=== PATIENT | male | born 1965 | race Two or more races ===

== ENCOUNTER 2019-01-02 10:10 | Inpatient (IN) | payer OTHER ==
[~2019-01-02] VITALS: Ht 175.3 cm; Wt 63.8 kg
[2019-01-02 11:37] LABS: Basophils # (auto) 0.1 uL; Eosinophils # (auto) 0.3 uL; Eosinophils % (auto) 3.6 % (0.0-7.0); Hematocrit 47.5 % (41.0-53.0); Hemoglobin 15.5 g/dL (13.5-17.5); Lymphocytes # (auto) 1.6 uL; Lymphocytes % (auto) 22.6 % (10.0-50.0); Mean Corpuscular Hemoglobin 30.9 pg (28.0-32.0); Mean Corpuscular Hgb Conc. 32.5 g/dL (32.0-36.0); Mean Corpuscular Volume 94.9 fL (80.0-100.0); Monocytes # (auto) 0.9 uL; Monocytes % (auto) 12.8 % (0.0-12.0); Neutrophils # (auto) 4.2 uL; Nucleated Red Blood Cells % 0.1 %; Platelet Count (auto) 221 10^3/uL (140-450); Red Blood Cells 5.01 10^6/uL (4.5-5.90); Red Cell Distribution Width 14.4 % (11.8-14.3)
[2019-01-02 11:55] LABS: Albumin 3.6 g/dL (3.4-5.0); Calcium 8.5 mg/dL (8.5-10.1); Magnesium 2.6 mg/dL (1.6-2.6); Potassium 5.1 mmol/L (3.5-5.1)
[2019-01-02 12:01] LABS: Bilirubin, Total 0.4 mg/dL (0.2-1.0); Total Protein 7.1 g/dL (6.4-8.2)
[2019-01-02] MEDS ORDERED: NICOTINE 21MG/24 HR TOPICAL PATCH TD ONE (14:15)
[2019-01-02] MEDS ORDERED: NITROGLYCERIN 0.4 MG SL TAB SL PRN (14:15)
[2019-01-02] MEDS ORDERED: MORPHINE SULFATE 4 MG/ML SYR/VIAL IV PRN (14:15)
[2019-01-02] MEDS ORDERED: ACETAMINOPHEN 500 MG TAB PO PRN (14:15)
[2019-01-02 14:34] LABS: Urine Bacteria NONE SEEN /hpf (None Seen); Urine Blood Negative /uL (Negative); Urine Mucus FEW (None Seen); Urine Specific Gravity 1.014 (1.001-1.035); Urine WBC 5 /hpf (0 - 3)
[2019-01-02 14:54] LABS: Alcohol, Urine < 3.0 mg/dL (0-5); Amphetamine Screen, Urine POSITIVE (NEGATIVE); Barbiturate Scree,Urine NEGATIVE (NEGATIVE); Benzodiazephine Screen, Urine NEGATIVE (NEGATIVE); Cannabinoid Screen, Urine POSITIVE (NEGATIVE); Cocaine Screen, Urine NEGATIVE (NEGATIVE); Opiate Scree,Urine NEGATIVE (NEGATIVE); Phencyclidine Screen, Urine NEGATIVE (NEGATIVE)
[2019-01-02 15:03] LABS: Cholesterol 171 mg/dL (< 200); HDL Cholesterol 63 mg/dL (40-59); LDL Cholesterol 98 mg/dL (< 100); Triglycerides 128 mg/dL (< 150)
[2019-01-02] MEDS: MORPHINE SULF INJ 2 MG/ML SYRINGE 1ML IV PRN (15:54)
[2019-01-02] MEDS: ONDANSETRON HCL 4 MG/2 ML VIAL IV PRN (15:55)
[2019-01-02 17:24] VITALS: BP 125/84
[2019-01-02 17:56] VITALS: BP 125/84
--- NOTE | 2019-01-02 19:30 | NUR ---
Opening Shift Note Assumed care of patient, awake and alert. No S/S of distress/SOB or pain. Instructed on POC and to call for assist PRN, will continue to monitor for changes Q1hr and PRN. Bed in low position, call orellana with in reach.
[2019-01-02] MEDS: METOPROLOL TARTRATE 25 MG TAB PO SCH (21:28)
[2019-01-02 22:00] VITALS: BP 119/77
[2019-01-02] MEDS: ALPRAZolam 0.25 MG TAB PO PRN (22:06)
[2019-01-02] MEDS: HYDROcodone-ACET 5/325MG TAB PO PRN (22:07)
[2019-01-03] MEDS: MORPHINE SULF INJ 2 MG/ML SYRINGE 1ML IV PRN ×2 (02:04→19:08)
[2019-01-03 06:00] VITALS: BP 101/59
[2019-01-03] MEDS: ALPRAZolam 0.25 MG TAB PO PRN ×2 (07:59→16:52)
[2019-01-03] MEDS: PANTOPRAZOLE 40 MG TAB PO SCH (07:59)
[2019-01-03] MEDS: LISINOPRIL 5 MG TAB PO SCH (07:59)
[2019-01-03] MEDS: NICOTINE 21MG/24 HR TOPICAL PATCH TD SCH (08:01)
[2019-01-03] MEDS: METOPROLOL TARTRATE 25 MG TAB PO SCH ×2 (08:01→22:34)
[2019-01-03 09:00] VITALS: BP 110/67
[2019-01-03 11:09] LABS: INR 0.98 (0.9-1.15); Prothrombin Time 10.5 sec (9.27-12.13)
[2019-01-03 13:00] VITALS: BP 92/61
[2019-01-03] MEDS ORDERED: FUROSEMIDE 40 MG TAB PO ONE (13:45)
[2019-01-03 16:07] LABS: Calcium 8.3 mg/dL (8.5-10.1); Potassium 4.8 mmol/L (3.5-5.1)
[2019-01-03 16:09] LABS: BUN/Creatinine Ratio 19.3
[2019-01-03 17:00] VITALS: BP 105/69
--- NOTE | 2019-01-03 19:36 | NUR ---
Opening Shift Note Assumed care of patient, awake and alert. No S/S of distress/SOB or pain. Instructed on POC and to call for assist PRN, will continue to monitor for changes Q1hr and PRN. Patient emotional on current condition, support given.
--- NOTE | 2019-01-03 20:48 | NUR ---
1950 Patient c/o chest pain 04/19, described by patient as tight and radiating to left arm. B/P 104/71, HR 87, 98% on 02 2L via n/c. EKG DONE 2018 Nitroglycerin 0.4 tab given SL, pain now 12/20. B/P 111/60, HR 82 Patient also reports " it could be anxiety". Morphine 2mg IV given for chest pain. Herminio Hospitalist. Addendum: 01/04/19 at 0150 by RUSS CRUZ RN Hospitalist called back, notified of chest pain issue and treatment done. No new orders at this time.
[2019-01-03 22:00] VITALS: BP 143/87
[2019-01-04 04:57] VITALS: BP 103/49
[2019-01-04 05:22] LABS: BUN/Creatinine Ratio 22.6; Calcium 8.6 mg/dL (8.5-10.1); Potassium 4.1 mmol/L (3.5-5.1)
--- NOTE | 2019-01-04 07:30 | NUR ---
OPENING NOTE ASSUMED CARE OF PATIENT. PT IS LAYING ON BED, AWAKE, HOB LOW-FOWLERS. A&O x4. ON ROOM AIR, O2 SATURATION 98%. NO SIGNS OF SOB/DISTRESS NOTED. SAFETY PRECAUTIONS IN PLACE INCLUDING, BED SET TO LOWEST POSITION/LOCKED. BEDSIDE RAILS UP X2. CALL LIGHT WITHIN REACH. INSTRUCTED PT TO CALL FOR ASSISTANCE. DISCUSSED POC WITH PT. PT VERBALIZED UNDERSTANDING. WILL CONTINUE TO MONITOR Q 1HR AND PRN.
[2019-01-04 08:56] VITALS: BP 112/65
[2019-01-04] MEDS: FUROSEMIDE 40 MG TAB PO SCH (11:25)
[2019-01-04] MEDS: NICOTINE 21MG/24 HR TOPICAL PATCH TD SCH (11:26)
[2019-01-04] MEDS: LISINOPRIL 5 MG TAB PO SCH (11:26)
[2019-01-04] MEDS: PANTOPRAZOLE 40 MG TAB PO SCH (11:26)
[2019-01-04] MEDS: METOPROLOL TARTRATE 25 MG TAB PO SCH ×2 (11:27→21:20)
[2019-01-04] MEDS ORDERED: FURO40TA4 PO (12:42)
[2019-01-04] MEDS ORDERED: ENA2.5T PO (12:42)
[2019-01-04] MEDS ORDERED: SPIR25TA8 PO (12:42)
[2019-01-04] MEDS ORDERED: MET25T PO (12:42)
[2019-01-04 12:54] VITALS: BP 103/67
[2019-01-04] MEDS ORDERED: SPIRONOLACTONE 25 MG TAB PO ONE (13:00)
[2019-01-04 13:53] VITALS: BP 112/65
--- NOTE | 2019-01-04 14:20 | NUR ---
PATIENT DISCHARGE WAS CANCELLED PER DR. MURPHY, PATIENT WILL HAVE PROCEDURE TOMORROW 01/05/19. PATIENT IS AWARE.
[2019-01-04 16:40] VITALS: BP 108/61
[2019-01-04] MEDS: SPIRONOLACTONE 25 MG TAB PO SCH (19:20)
--- NOTE | 2019-01-04 19:21 | NUR ---
ENDORSED CARE TO GARY SOLANO.
[2019-01-04] MEDS: ENALAPRIL MALEATE 2.5 MG TAB PO SCH (21:22)
[2019-01-04 22:14] VITALS: BP 106/73
[2019-01-05 04:46] VITALS: BP 97/60
[2019-01-05] MEDS: SPIRONOLACTONE 25 MG TAB PO SCH (05:29)
--- NOTE | 2019-01-05 07:02 | NUR ---
Patient to pre-op via bed, endorsed to María VEGA. Patient A&OX4, awake and alert.
[2019-01-05] MEDS ORDERED: LIDOCAINE 1% HCL (LOCAL ANESTH.) INJ 20ML MDV ONE (07:04)
[2019-01-05] MEDS ORDERED: BUPIVACAINE W/ EPINEPH 0.25% INJ 50ML MDV ONE (07:04)
[2019-01-05] MEDS ORDERED: ceFAZolin 1GM/50ML 50 ML IV ONE (07:09)
[2019-01-05] MEDS: LIDOCAINE W/ EPINEPHRINE 1 % INJ 30ML ONE ×2 (07:14→07:50)
[2019-01-05] MEDS: BUPIVACAINE 0.25% INJ 50ML VIAL ONE ×2 (07:15→07:50)
--- NOTE | 2019-01-05 07:20 | NUR ---
OPENING NOTE ASSUMED CARE OF PATIENT. PATIENT OFF UNIT. PATIENT IN PRE-OP.
[2019-01-05] MEDS ORDERED: fentaNYL CITRATE 100 MCG/2 ML VL ONE ×2 (07:24→07:59)
[2019-01-05] MEDS ORDERED: PROPOFOL 10 MG/ML 20 ML IV ONE (07:24)
[2019-01-05] MEDS ORDERED: MIDAZOLAM HCL 1MG/1ML-2 ML VIAL ONE (07:24)
[2019-01-05] MEDS ORDERED: MORPHINE SULFATE 4 MG/ML SYR/VIAL IV PRN ×2 (09:00→12:45)
[2019-01-05] MEDS ORDERED: ePHEDrine SULFATE 50 MG/ML AMP IV PRN (09:00)
[2019-01-05] MEDS ORDERED: ONDANSETRON HCL 4 MG/2 ML VIAL IV ONE (09:00)
[2019-01-05] MEDS ORDERED: hydrALAZINE HCL 20 MG/ML VL IV PRN (09:00)
--- NOTE | 2019-01-05 09:31 | NUR ---
PATIENT BACK ON UNIT VIA BED FROM OR. A&O X4. PATIENT IS STABLE, VS BP 104/68, HR 72, RR 18, O2 SATURATIONS 95%. SAFETY PRECAUTIONS IN PLACE INCLUDING BED SET TO LOWEST POSITION/LOCKED. BEDSIDE RAILS UP X2. CALL LIGHT WITHIN REACH. INSTRUCTED PATIENT TO CALL FOR ASSISTANCE. PATIENT VERBALIZED UNDERSTANDING. WILL CONTINUE TO MONITOR Q 1HR AND PRN.
--- NOTE | 2019-01-05 09:51 | NUR ---
0800 INTERVENTIONS WERE COMPLETED AT 0935 WHEN PATIENT GOT BACK ON UNIT FROM OR.
[2019-01-05] MEDS: ENALAPRIL MALEATE 2.5 MG TAB PO SCH (10:00)
[2019-01-05] MEDS: FUROSEMIDE 40 MG TAB PO SCH (10:44)
[2019-01-05] MEDS: PANTOPRAZOLE 40 MG TAB PO SCH (10:44)
[2019-01-05] MEDS: METOPROLOL TARTRATE 25 MG TAB PO SCH (10:44)
[2019-01-05] MEDS: NICOTINE 21MG/24 HR TOPICAL PATCH TD SCH (10:45)
[2019-01-05] MEDS: MORPHINE SULF INJ 2 MG/ML SYRINGE 1ML IV PRN (10:48)
[2019-01-05] MEDS: HYDROcodone-ACET 5/325MG TAB PO PRN (11:50)
[2019-01-05] MEDS ORDERED: MORPHINE SULF INJ 2 MG/ML SYRINGE 1ML IV PRN (12:45)
[2019-01-05] MEDS ORDERED: HYDROcodone-ACET 5/325MG TAB PO PRN (12:45)
[2019-01-05] MEDS: ONDANSETRON HCL 4 MG/2 ML VIAL IV PRN (12:47)
[2019-01-05 13:00] VITALS: BP 120/71
--- NOTE | 2019-01-05 13:19 | NUR ---
assessment Per consult no pcp. Adrienne Dhaliwal to see patient for PCP. Addendum: 01/07/19 at 1720 by Adrienne Mathew Amended: Links added.
--- NOTE | 2019-01-05 16:16 | NUR ---
Discharge instructions given as ordered. Encourage to follow up with PMD as instructed. All questions and concerns addressed. Patient verbalized understanding. No home medications held in Pharmacy and no vaccines given. IV removed with catheter intact, pressure dressing applied.
--- NOTE | 2019-01-05 16:31 | NUR ---
Patient taken to vehicle via wheelchair with all personal belongings, accompanied by staff and family member. No distress noted at time of departure.
== END 2019-01-05 16:31 | disposition home or self-care (01) | DRG 228 ==
LOC: ER 10:10 → OVERFLOW 14:14 → WEST WING 17:01
PROVIDERS: ADMIT Nurse Practitioner Acute Care; ATTEND Internal Medicine
PROC: 0YQ50ZZ Repair Right Inguinal Region, Open Approach (ICD-10-PCS; principal; 2019-01-05 07:25)
DX: K40.30 Unilateral inguinal hernia, with obstruction, without gangrene, not specified as recurrent (principal); I42.0 Dilated cardiomyopathy; I50.9 Heart failure, unspecified; F17.210 Nicotine dependence, cigarettes, uncomplicated; F19.10 Other psychoactive substance abuse, uncomplicated; F41.9 Anxiety disorder, unspecified; I25.10 Atherosclerotic heart disease of native coronary artery without angina pectoris; F12.90 Cannabis use, unspecified, uncomplicated; F15.10 Other stimulant abuse, uncomplicated; Z79.899 Other long term (current) drug therapy; Z87.74 Personal history of (corrected) congenital malformations of heart and circulatory system; Z88.8 Allergy status to other drugs, medicaments and biological substances; Z95.1 Presence of aortocoronary bypass graft
CPT/HCPCS: 36415; 71045; 74176; 80048; 80053; 80061; 80307; 81001; 82150; 83690; 83735; 83880; 84484; 85025; 85610; 86850; 86900; 86901; 88302; 93005; 93306; 96374; G0378; J0690; J2001; J2250; J2405; J2704; J3490

== ENCOUNTER 2019-01-14 08:16 | Emergency (ER) | payer OTHER ==
[~2019-01-14] VITALS: Ht 175.3 cm; Wt 80.7 kg
[~2019-01-14 08:16] MED LIST: ENA2.5T PO; FURO40TA4 PO; MET25T PO; SPIR25TA8 PO
[2019-01-14 08:38] VITALS: BP 126/63
[2019-01-14 09:04] LABS: Urine Bacteria NONE SEEN /hpf (None Seen); Urine Blood Negative /uL (Negative); Urine Specific Gravity 1.018 (1.001-1.035); Urine WBC <1 /hpf (0 - 3)
[2019-01-14 10:42] LABS: Chloride 104 mmol/L (98-107); Potassium 4.5 mmol/L (3.5-5.1); Sodium 137 mmol/L (136-145)
[2019-01-14 10:53] LABS: Basophils # (auto) 0.1 uL; Eosinophils # (auto) 0.2 uL; Eosinophils % (auto) 3.4 % (0.0-7.0); Hematocrit 47.7 % (41.0-53.0); Hemoglobin 15.9 g/dL (13.5-17.5); Lymphocytes # (auto) 2.2 uL; Lymphocytes % (auto) 30.7 % (10.0-50.0); Mean Corpuscular Hemoglobin 31.1 pg (28.0-32.0); Mean Corpuscular Hgb Conc. 33.2 g/dL (32.0-36.0); Mean Corpuscular Volume 93.6 fL (80.0-100.0); Monocytes # (auto) 0.9 uL; Monocytes % (auto) 12.2 % (0.0-12.0); Neutrophils # (auto) 3.9 uL; Neutrophils % (auto) 52.7 % (37.0-80.0); Nucleated Red Blood Cells % 0.1 %; Platelet Count (auto) 307 10^3/uL (140-450); Red Cell Distribution Width 13.5 % (11.8-14.3); White Blood Cell 7.3 10^3/uL (4.4-10.8)
[2019-01-14 11:03] LABS: Alanine Aminotransferase 57 U/L (16-61); Albumin 3.8 g/dL (3.4-5.0); Alkaline Phosphatase 136 U/L (45-117); Anion Gap 4 (5-15); Aspartate Aminotransferase 31 U/L (15-37); BUN/Creatinine Ratio 28.6; Bilirubin, Total 0.2 mg/dL (0.2-1.0); Blood Urea Nitrogen 30 mg/dL (7-18); Carbon Dioxide 29 mmol/L (21-32); GFR African American 96 mL/min; GFR Non-African American 79 mL/min; Glucose 63 mg/dL (74-106)
[2019-01-14] MEDS ORDERED: FUROSEMIDE 40 MG/4 ML VIAL IV ONE (12:45)
== END 2019-01-14 15:08 | disposition left against medical advice (07) ==
LOC: ER 08:16
DX: I51.7 Cardiomegaly (principal); I50.9 Heart failure, unspecified; Z95.1 Presence of aortocoronary bypass graft; Z87.891 Personal history of nicotine dependence
CPT/HCPCS: 36415; 71046; 80053; 81001; 83880; 84484; 85025; 93005

== ENCOUNTER 2019-01-15 17:09 | Emergency (ER) | payer OTHER ==
[~2019-01-15] VITALS: Ht 175.3 cm; Wt 80.7 kg
[2019-01-15 17:18] VITALS: BP 119/75
[2019-01-15 19:58] LABS: Alcohol, Urine < 3.0 mg/dL (0-5); Amphetamine Screen, Urine NEGATIVE (NEGATIVE); Barbiturate Scree,Urine NEGATIVE (NEGATIVE); Benzodiazephine Screen, Urine NEGATIVE (NEGATIVE); Cannabinoid Screen, Urine POSITIVE (NEGATIVE); Cocaine Screen, Urine NEGATIVE (NEGATIVE); Opiate Scree,Urine NEGATIVE (NEGATIVE); Phencyclidine Screen, Urine NEGATIVE (NEGATIVE)
== END 2019-01-15 20:45 | disposition home or self-care (01) ==
LOC: ER 17:09
DX: J20.9 Acute bronchitis, unspecified (principal); I50.9 Heart failure, unspecified; E78.5 Hyperlipidemia, unspecified; Z95.1 Presence of aortocoronary bypass graft
CPT/HCPCS: 36415; 80307; 84484

== ENCOUNTER 2019-01-23 01:56 | Emergency (ER) | payer MEDICAID, OTHER ==
[~2019-01-23] VITALS: Ht 175.3 cm; Wt 81.6 kg
[2019-01-23 02:09] VITALS: BP 117/85
[2019-01-23 02:47] LABS: Basophils # (auto) 0.1 uL; Basophils % (auto) 0.8 % (0.0-2.0); Eosinophils # (auto) 0.3 uL; Eosinophils % (auto) 4.5 % (0.0-7.0); Hematocrit 47.3 % (41.0-53.0); Hemoglobin 16.1 g/dL (13.5-17.5); Lymphocytes % (auto) 27.6 % (10.0-50.0); Mean Corpuscular Hemoglobin 31.6 pg (28.0-32.0); Mean Corpuscular Hgb Conc. 34.1 g/dL (32.0-36.0); Mean Corpuscular Volume 92.8 fL (80.0-100.0); Monocytes # (auto) 0.6 uL; Monocytes % (auto) 8.7 % (0.0-12.0); Neutrophils # (auto) 4.3 uL; Neutrophils % (auto) 58.4 % (37.0-80.0); Nucleated Red Blood Cells % 0.1 %; Platelet Count (auto) 276 10^3/uL (140-450); Red Cell Distribution Width 13.5 % (11.8-14.3); White Blood Cell 7.3 10^3/uL (4.4-10.8)
[2019-01-23 03:06] LABS: Albumin 3.8 g/dL (3.4-5.0); Anion Gap 3 (5-15); Blood Urea Nitrogen 24 mg/dL (7-18); Calcium 8.4 mg/dL (8.5-10.1); Carbon Dioxide 29 mmol/L (21-32); Chloride 108 mmol/L (98-107); Glucose 105 mg/dL (74-106); Potassium 4.5 mmol/L (3.5-5.1); Sodium 140 mmol/L (136-145)
[2019-01-23 03:08] LABS: Alanine Aminotransferase 53 U/L (16-61); Aspartate Aminotransferase 42 U/L (15-37); BUN/Creatinine Ratio 23.8; GFR African American 100 mL/min; GFR Non-African American 83 mL/min
[2019-01-23 03:12] LABS: Alkaline Phosphatase 144 U/L (45-117); Bilirubin, Total 0.4 mg/dL (0.2-1.0); Total Protein 7.9 g/dL (6.4-8.2)
== END 2019-01-23 06:25 | disposition left against medical advice (07) ==
LOC: ER 01:56
DX: R07.81 Pleurodynia (principal); Z53.21 Procedure and treatment not carried out due to patient leaving prior to being seen by health care provider
CPT/HCPCS: 36415; 71045; 80053; 84484; 85025; 93005

== ENCOUNTER 2019-02-01 19:30 | Emergency (ER) | payer MEDICAID ==
[~2019-02-01] VITALS: Ht 175.3 cm; Wt 90.7 kg
[2019-02-01 19:42] VITALS: BP 113/69
== END 2019-02-02 01:45 | disposition left against medical advice (07) ==
LOC: EDBD 19:30 → ER 19:57
DX: R05 Cough (principal); M79.10 Myalgia, unspecified site; Z53.21 Procedure and treatment not carried out due to patient leaving prior to being seen by health care provider

== ENCOUNTER 2020-02-02 20:09 | Inpatient (IN) | payer MEDICAID, OTHER ==
[~2020-02-02] VITALS: Ht 175.3 cm; Wt 80.1 kg
[~2020-02-02 20:09] MED LIST changes: -ENA2.5T PO; +ENAL2.5T2 PO
[2020-02-02 21:29] LABS: Basophils # (auto) 0.1 10 ^3/uL (0-0.2); Basophils % (auto) 2.3 % (0.0-2.0); Eosinophils # (auto) 0.3 10 ^3/uL (0-0.8); Eosinophils % (auto) 5.3 % (0.0-7.0); Hematocrit 40.7 % (41.0-53.0); Lymphocytes # (auto) 1.3 10 ^3/uL (0.4-5.4); Lymphocytes % (auto) 22.9 % (10.0-50.0); Mean Corpuscular Hemoglobin 28.5 pg (28.0-32.0); Mean Corpuscular Hgb Conc. 31.8 g/dL (32.0-36.0); Mean Corpuscular Volume 89.6 fL (80.0-100.0); Monocytes # (auto) 0.7 10 ^3/uL (0-1.3); Monocytes % (auto) 12.1 % (0.0-12.0); Neutrophils # (auto) 3.4 10 ^3/uL (1.6-8.6); Neutrophils % (auto) 57.4 % (37.0-80.0); Nucleated Red Blood Cells % 0.2 %; Platelet Count (auto) 246 10^3/uL (140-450); Red Blood Cells 4.55 10^6/uL (4.5-5.90); Red Cell Distribution Width 16.1 % (11.8-14.3); White Blood Cell 5.9 10^3/uL (4.4-10.8)
[2020-02-02 21:44] LABS: Albumin 3.3 g/dL (3.4-5.0); Calcium 8.8 mg/dL (8.5-10.1); Magnesium 2.2 mg/dL (1.6-2.6); Potassium 4.2 mmol/L (3.5-5.1)
[2020-02-02 21:50] LABS: BUN/Creatinine Ratio 16.8; Bilirubin, Total 0.9 mg/dL (0.2-1.0); Total Protein 7.3 g/dL (6.4-8.2)
[2020-02-02 22:00] LABS: Urine Bacteria NONE SEEN /hpf (None Seen); Urine Blood Negative /uL (Negative); Urine Mucus FEW (None Seen); Urine Specific Gravity 1.023 (1.001-1.035); Urine WBC 3 /hpf (0 - 3)
[2020-02-02 22:13] LABS: Alcohol, Urine < 3.0 mg/dL (0-5); Amphetamine Screen, Urine NEGATIVE (NEGATIVE); Barbiturate Scree,Urine NEGATIVE (NEGATIVE); Benzodiazephine Screen, Urine NEGATIVE (NEGATIVE); Cannabinoid Screen, Urine POSITIVE (NEGATIVE); Cocaine Screen, Urine NEGATIVE (NEGATIVE); Opiate Scree,Urine NEGATIVE (NEGATIVE); Phencyclidine Screen, Urine NEGATIVE (NEGATIVE)
[2020-02-02] MEDS ORDERED: ASPirin-EC 81 mg tab PO ONE (23:00)
[2020-02-02] MEDS ORDERED: FUROSEMIDE 40 MG/4 ML VIAL IV ONE (23:00)
[2020-02-02] MEDS ORDERED: FUROSEMIDE 20 MG/2 ML VIAL ONE (23:15)
[2020-02-02] MEDS ORDERED: ASPirin 81 mg TAB ONE (23:17)
[2020-02-02] MEDS ORDERED: FUROSEMIDE INJECTION 10 ML ONE (23:17)
[2020-02-03] VITALS (7 sets, daily range): BP systolic 104–145; BP diastolic 64–93
[2020-02-03] MEDS ORDERED: ACETAMINOPHEN 325 MG TAB PO PRN (00:15)
[2020-02-03] MEDS ORDERED: NITROGLYCERIN 0.4 MG SL TAB SL PRN (00:15)
[2020-02-03] MEDS ORDERED: TEMAZEPAM 15 MG CAP PO PRN (00:15)
[2020-02-03] MEDS ORDERED: ONDANSETRON HCL 4 MG/2 ML VIAL IV PRN (00:15)
[2020-02-03] MEDS ORDERED: MORPHINE SULF INJ 2 MG/ML SYRINGE 1ML IV PRN (00:15)
--- NOTE | 2020-02-03 01:30 | NUR ---
Telemetry admit from ER KARLEYFARA admitted to Telemetry. Patient oriented to CLARISSE IRWIN, primary RN, unit, room, bed, and unit policies regarding patient care and visiting hours. Patient now on continuous telemetry monitoring, tele box #54 and telemetry reading on arrival to unit is SR. Patient weighed by bedscale and encouraged to call if they need something. Patient states that he does not currently have any chest pain. All questions and concerns addressed, patient verbalized understanding.
[2020-02-03] MEDS ORDERED: ATOR20TA PO (02:35)
[2020-02-03] MEDS ORDERED: NITR0.4S29 SL (02:35)
[2020-02-03] MEDS ORDERED: METO25TA36 PO (02:35)
[2020-02-03] MEDS ORDERED: FURO40TA4 PO (02:35)
[2020-02-03] MEDS ORDERED: LOSA25TA38 PO (02:35)
[2020-02-03] MEDS ORDERED: BENZ100C97 PO (02:35)
[2020-02-03] MEDS ORDERED: ASPI-404 PO (02:35)
[2020-02-03] MEDS: SPIRONOLACTONE 25 MG TAB PO SCH ×2 (05:40→18:11)
[2020-02-03] MEDS ORDERED: FUROSEMIDE 20 MG/2 ML VIAL IV SCH (06:00)
--- NOTE | 2020-02-03 07:20 | NUR ---
Opening Shift Note Assumed care of patient, awake and alert. No S/S of distress/SOB or pain. Instructed on POC and to call for assist PRN, will continue to monitor for changes Q1hr and PRN. Bed is set in lowest locked position with side rails up x 2 for safety and call light is within reach.
[2020-02-03] MEDS: ASPirin 81 mg TAB PO SCH (09:16)
[2020-02-03] MEDS: PANTOPRAZOLE 40 MG TAB PO SCH (09:17)
--- NOTE | 2020-02-03 09:50 | NUR ---
Pt is alert and oriented times 3. Pt states he has been homeless for 2 yrs. He has resided down the [place] most of the time. He was staying at [facility] until shin found out he was Bipolar and he had severe heart issues. Pt states he is going to receive insurance money from his mom. He has no children but has a girlfriend. Pt states he is an addict and uses meth and THC. He stated he stopped using a month ago. Pt has not seen a physician in many months. Pt is not taking his medications. Addendum: 02/03/20 at 1001 by ANDREEA CHEUNG SS Amended: Links added.
[2020-02-03] MEDS ORDERED: METOPROLOL TARTRATE 25 MG TAB PO SCH (10:00)
[2020-02-03] MEDS ORDERED: ENALAPRIL MALEATE 2.5 MG TAB PO SCH (10:00)
--- NOTE | 2020-02-03 11:02 | NUR ---
telecommunications switch technician at bedside
[2020-02-03] MEDS ORDERED: OPTISON 3ml Vial for INJ IV ONE (11:43)
--- NOTE | 2020-02-03 13:42 | NUR ---
Faxed Life Vest order/clinical information to [facility].
[2020-02-03] MEDS ORDERED: MUPIROCIN 2% OINT 15gm or 22gm TOP ONE (14:45)
--- NOTE | 2020-02-03 14:47 | NUR ---
MD at bedside Dr. Campos, updated pt on POC.
--- NOTE | 2020-02-03 15:00 | NUR ---
Anette service liaison representative at bedside Matthew, educated patient on life vest. Patient verbalized understanding.
--- NOTE | 2020-02-03 15:33 | NUR ---
SS consult regarding pt being homeless.Pt states prior to admission he was residiing at [facility] in [place]. Dscussed with pt options and resources for placement.
[2020-02-03] MEDS ORDERED: FUROSEMIDE 40 MG/4 ML VIAL IV SCH (18:00)
--- NOTE | 2020-02-03 19:17 | NUR ---
Endorsed care to NOC Nicolle VEGA.
--- NOTE | 2020-02-03 19:40 | NUR ---
RECEIVED PATIENT FROM DAY SHIFT RN. PATIENT RESTING IN BED. NO S/S OF DISTRESS NOTED. DENIED PAIN FOR NOW. REINFORCED NPO AFTER MIDNIGHT FOR PROCEDURE TOMORROW. PATIENT VERBALIZED UNDERSTANDING. POC INSTRUCTED AND ENCOURAGED PATIENT TO CALL FOR TRAIN PLANNER IF NEEDED. BED IN LOWEST POSITION WITH SIDE RAILS UP X 2. CALL MORAN WITHIN REACH. CONTINUE TO MONITOR FOR CHANGES Q1H AND PRN
--- NOTE | 2020-02-03 20:44 | NUR ---
PATIENT IS ON CONTACT ISOLATION FOR MRSA POSITIVE FROM [facility].
[2020-02-03] MEDS: CARVEDILOL 12.5 MG TAB PO SCH (22:00)
[2020-02-03] MEDS: MUPIROCIN 2% OINT 15gm or 22gm EACHNOSTRI SCH (22:08)
[2020-02-03] MEDS: ATORVASTATIN 20 MG TAB PO SCH (22:08)
[2020-02-03] MEDS: SACUBITRIL-VALSARTAN 24mg/26mg TAB PO SCH (22:08)
--- NOTE | 2020-02-03 22:40 | NUR ---
2ND IV insertion BY PROTOCOL IV access obtained, via clean sterile technique by inserting [20] gauge catheter at [RFA] after [1] attempt(s). IV secured properly. No trauma to site. Patient tolerated well. NOTE: []
--- NOTE | 2020-02-04 00:12 | NUR ---
PATIENT SLEEPING. WATER REMOVED FROM BEDSIDE. NPO FROM NOW ON. CONTINUE TO MONITOR.
--- NOTE | 2020-02-04 03:44 | NUR ---
PATIENT SLEEPING. NO S/S OF DISTRESS NOTED. CONTINUE CARE.
[2020-02-04 05:00] VITALS: BP 104/63
[2020-02-04 05:36] LABS: Basophils # (auto) 0.1 10 ^3/uL (0-0.2); Basophils % (auto) 1.2 % (0.0-2.0); Eosinophils # (auto) 0.3 10 ^3/uL (0-0.8); Eosinophils % (auto) 4.9 % (0.0-7.0); Hematocrit 43.2 % (41.0-53.0); Hemoglobin 14.5 g/dL (13.5-17.5); Lymphocytes # (auto) 1.6 10 ^3/uL (0.4-5.4); Lymphocytes % (auto) 22.9 % (10.0-50.0); Mean Corpuscular Hemoglobin 29.2 pg (28.0-32.0); Mean Corpuscular Hgb Conc. 33.4 g/dL (32.0-36.0); Mean Corpuscular Volume 87.4 fL (80.0-100.0); Monocytes # (auto) 0.9 10 ^3/uL (0-1.3); Neutrophils # (auto) 4.2 10 ^3/uL (1.6-8.6); Nucleated Red Blood Cells % 0.1 %; Platelet Count (auto) 252 10^3/uL (140-450); Red Blood Cells 4.95 10^6/uL (4.5-5.90); White Blood Cell 7.1 10^3/uL (4.4-10.8)
[2020-02-04] MEDS: SPIRONOLACTONE 25 MG TAB PO SCH ×2 (05:47→17:31)
--- NOTE | 2020-02-04 05:47 | NUR ---
ORAL MEDICATION GIVEN WITH A LITTLE WATER. PATIENT UNDERSTOOD NPO NOW. CONTINUE TO MONITOR.
[2020-02-04 05:54] LABS: Calcium 8.7 mg/dL (8.5-10.1); Potassium 3.5 mmol/L (3.5-5.1)
--- NOTE | 2020-02-04 07:03 | NUR ---
OPENING SHIFT NOTES Assumed care of patient from night coordinator RN. Patient is alert and oriented x4, no signs of distress noted. Patient was update on the plan of care and verbalized understanding. Bed is locked, in the lowest position, side rails up x2, call light is in reach. Patient was encouraged to call for assistance as needed.
[2020-02-04] MEDS ORDERED: ADENOSINE 68 MG in GIVE UN-DILUTED 0 ML IV STA (08:28)
[2020-02-04 09:00] VITALS: BP 105/69
[2020-02-04] MEDS: MUPIROCIN 2% OINT 15gm or 22gm EACHNOSTRI SCH ×2 (09:59→21:49)
[2020-02-04] MEDS: SACUBITRIL-VALSARTAN 24mg/26mg TAB PO SCH ×2 (10:00→21:51)
[2020-02-04] MEDS: FUROSEMIDE 100 MG/10ML VIAL IV SCH (10:00)
[2020-02-04] MEDS: CARVEDILOL 12.5 MG TAB PO SCH ×2 (10:00→21:50)
[2020-02-04] MEDS: PANTOPRAZOLE 40 MG TAB PO SCH (10:00)
--- NOTE | 2020-02-04 11:20 | NUR ---
PATIENT TAKEN TO STRESS LAB accompanied by tech, no signs of distress noted.
--- NOTE | 2020-02-04 12:21 | NUR ---
PATIENT BACK IN ROOM FROM STRESS TEST No signs of distress noted, patient was encouraged to call for assistance as needed.
[2020-02-04] MEDS: ASPirin 81 mg TAB PO SCH (12:46)
[2020-02-04 13:00] VITALS: BP 114/68
[2020-02-04 17:10] VITALS: BP 96/60
--- NOTE | 2020-02-04 19:01 | NUR ---
Closing shift note Care endorsed to lieutenant shift supervisor RN.
[2020-02-04 21:00] VITALS: BP 116/51
[2020-02-04] MEDS: ATORVASTATIN 20 MG TAB PO SCH (21:51)
--- NOTE | 2020-02-05 00:09 | NUR ---
Report received from Claude, night shift manager. Patient is resting in bed with eyes closed, no distress noted and patient denies pain.
[2020-02-05 05:00] VITALS: BP 89/61
[2020-02-05] MEDS: SPIRONOLACTONE 25 MG TAB PO SCH (05:44)
--- NOTE | 2020-02-05 07:05 | NUR ---
OPENING SHIFT NOTE Assumed care of patient from engineering and operations director RN. Patient is alert and oriented x4, no signs of distress noted, denies pain. Patient was updated on the plan of care and verbalized understanding. Bed is locked, in the lowest position, side rails up x2 and call light is in reach. Patient was encouraged to call for assistance as needed.
[2020-02-05 09:00] VITALS: BP 95/64
[2020-02-05] MEDS: MUPIROCIN 2% OINT 15gm or 22gm EACHNOSTRI SCH (10:35)
[2020-02-05] MEDS: FUROSEMIDE 100 MG/10ML VIAL IV SCH (10:35)
[2020-02-05] MEDS: SACUBITRIL-VALSARTAN 24mg/26mg TAB PO SCH (10:36)
[2020-02-05] MEDS: ASPirin 81 mg TAB PO SCH (10:36)
[2020-02-05] MEDS: CARVEDILOL 12.5 MG TAB PO SCH (10:36)
[2020-02-05] MEDS: PANTOPRAZOLE 40 MG TAB PO SCH (10:36)
[2020-02-05 13:00] VITALS: BP 90/60
--- NOTE | 2020-02-05 14:00 | NUR ---
ZOLL LIFE VEST REP AT BEDSIDE.
[2020-02-05 16:06] VITALS: BP 94/60
--- NOTE | 2020-02-05 17:15 | NUR ---
DISCHARGE Discharge instructions given as ordered. Encourage to follow up with PMD as instructed. All questions and concerns addressed. Patient verbalized understanding. Medication reconciliation form completed and copy given to patient. Home medications held in Pharmacy returned to patient, and needed vaccines given. IV removed with catheter intact, pressure dressing applied, Telemetry unit returned to ICU. Patient taken to taxi via wheelchair with all personal belongings, accompanied by staff. No distress noted at time of departure.
== END 2020-02-05 17:15 | disposition home or self-care (01) | DRG 194 ==
LOC: ER 20:11 → TELE 20:12 → TELE-WESTW 02-03 01:30
PROVIDERS: ADMIT Nurse Practitioner; ATTEND Internal Medicine
DX: I11.0 Hypertensive heart disease with heart failure (principal); N17.0 Acute kidney failure with tubular necrosis; I50.43 Acute on chronic combined systolic (congestive) and diastolic (congestive) heart failure; I42.7 Cardiomyopathy due to drug and external agent; F17.200 Nicotine dependence, unspecified, uncomplicated; F31.9 Bipolar disorder, unspecified; Z59.0 Homelessness; Z79.82 Long term (current) use of aspirin; Z83.3 Family history of diabetes mellitus; Z87.74 Personal history of (corrected) congenital malformations of heart and circulatory system; E78.5 Hyperlipidemia, unspecified; F12.90 Cannabis use, unspecified, uncomplicated; I25.10 Atherosclerotic heart disease of native coronary artery without angina pectoris; Z79.899 Other long term (current) drug therapy; Z91.19 Patient's noncompliance with other medical treatment and regimen; Z95.1 Presence of aortocoronary bypass graft
CPT/HCPCS: 36415; 71046; 78452; 80048; 80053; 80307; 81001; 83735; 83880; 84484; 85025; 87081; 93005; 93017; 93306; G0378; J0153; Q9956

== ENCOUNTER 2020-03-08 12:17 | Inpatient (IN) | payer OTHER ==
[~2020-03-08] VITALS: Ht 177.8 cm; Wt 81.2 kg
[~2020-03-08 12:17] MED LIST changes: +ASPI-404 PO; +ATOR20TA PO; +BENZ100C97 PO; -ENAL2.5T2 PO; +LOSA25TA38 PO; -MET25T PO; +METO25TA36 PO; +NITR0.4S29 SL; -SPIR25TA8 PO
[2020-03-08 13:38] LABS: Basophils # (auto) 0.1 10 ^3/uL (0-0.2); Basophils % (auto) 1.6 % (0.0-2.0); Eosinophils # (auto) 0.2 10 ^3/uL (0-0.8); Eosinophils % (auto) 5.1 % (0.0-7.0); Hematocrit 44.9 % (41.0-53.0); Hemoglobin 14.5 g/dL (13.5-17.5); Lymphocytes # (auto) 1.4 10 ^3/uL (0.4-5.4); Lymphocytes % (auto) 32.3 % (10.0-50.0); Mean Corpuscular Hemoglobin 28.3 pg (28.0-32.0); Mean Corpuscular Hgb Conc. 32.2 g/dL (32.0-36.0); Mean Corpuscular Volume 87.7 fL (80.0-100.0); Monocytes # (auto) 0.6 10 ^3/uL (0-1.3); Monocytes % (auto) 13.6 % (0.0-12.0); Neutrophils # (auto) 2.1 10 ^3/uL (1.6-8.6); Neutrophils % (auto) 47.4 % (37.0-80.0); Nucleated Red Blood Cells % 0.1 %; Platelet Count (auto) 237 10^3/uL (140-450); Red Blood Cells 5.12 10^6/uL (4.5-5.90); Red Cell Distribution Width 18.3 % (11.8-14.3); White Blood Cell 4.5 10^3/uL (4.4-10.8)
[2020-03-08] MEDS ORDERED: ASPirin 81 mg TAB PO ONE (13:45)
[2020-03-08 13:59] LABS: Albumin 3.5 g/dL (3.4-5.0); BUN/Creatinine Ratio 9.2; Calcium 8.9 mg/dL (8.5-10.1); Potassium 4.3 mmol/L (3.5-5.1)
[2020-03-08 14:05] LABS: Total Protein 7.5 g/dL (6.4-8.2)
[2020-03-08 15:20] LABS: INR 1.14 (0.9-1.15); Partial Thromboplastin Time 29.3 sec (23.64-32.05)
[2020-03-08 16:08] LABS: Amphetamine Screen, Urine NEGATIVE (NEGATIVE); Barbiturate Scree,Urine NEGATIVE (NEGATIVE); Benzodiazephine Screen, Urine NEGATIVE (NEGATIVE); Cannabinoid Screen, Urine POSITIVE (NEGATIVE); Cocaine Screen, Urine NEGATIVE (NEGATIVE); Opiate Scree,Urine NEGATIVE (NEGATIVE); Phencyclidine Screen, Urine NEGATIVE (NEGATIVE)
[2020-03-08] MEDS ORDERED: MORPHINE SULF INJ 2 MG/ML SYRINGE 1ML IV PRN ×2 (16:45)
[2020-03-08] MEDS ORDERED: MORPHINE SULFATE 4 MG/ML SYR/VIAL IV PRN (16:45)
[2020-03-08] MEDS ORDERED: LORazepam 0.5 MG TAB PO PRN (16:45)
[2020-03-08] MEDS ORDERED: NITROGLYCERIN 0.4 MG SL TAB SL PRN ×2 (16:45)
[2020-03-08] MEDS ORDERED: ALUM & MAG HYDROX-SIMETH LIQ(MAALOX) 30 ML PO PRN (16:45)
[2020-03-08] MEDS ORDERED: METOCLOPRAMIDE HCL 5MG/ml INJ 2ml VIAL IV PRN (16:45)
[2020-03-08] MEDS ORDERED: IPRATROPIUM BROM 0.5 MG/2.5ML INH SOL NEB ONE (17:00)
[2020-03-08] MEDS ORDERED: ALBUTEROL SULF 2.5 MG/0.5ML(0.5%) NEB SOLN NEB ONE (17:00)
[2020-03-08] MEDS ORDERED: FAMOTIDINE 20 MG TAB PO ONE (17:00)
[2020-03-08] MEDS ORDERED: IPRATROPIUM BROM 0.5 MG/2.5ML INH SOL NEB PRN (17:00)
[2020-03-08] MEDS ORDERED: FUROSEMIDE 20 MG/2 ML VIAL IV ONE (17:00)
[2020-03-08] MEDS ORDERED: ALBUTEROL SULF 2.5 MG/0.5ML(0.5%) NEB SOLN NEB PRN (17:00)
[2020-03-08] MEDS ORDERED: ALBUTEROL SULF 2.5 MG/0.5ML(0.5%) NEB SOLN ONE (17:05)
[2020-03-08] MEDS ORDERED: IPRATROPIUM BROM 0.5 MG/2.5ML INH SOL ONE (17:05)
[2020-03-08 17:12] VITALS: BP 121/75
[2020-03-08 17:12] LABS: Urine Bacteria NONE SEEN /hpf (None Seen); Urine Blood Negative /uL (Negative); Urine Specific Gravity 1.015 (1.001-1.035); Urine WBC 1 /hpf (0 - 3)
[2020-03-08] MEDS ORDERED: ASPirin 81 mg TAB PO SCH (17:55)
[2020-03-08] MEDS: FUROSEMIDE 100 MG/10ML VIAL IV SCH (17:59)
[2020-03-08 18:00] VITALS: BP 121/75
[2020-03-08] MEDS ORDERED: FUROSEMIDE 20 MG/2 ML VIAL IV SCH (18:00)
--- NOTE | 2020-03-08 18:00 | NUR ---
Telemetry admit from ER KARLEYFARA admitted to Telemetry unit after SBAR received. Patient oriented to Stephanie Molina RN, unit, room, bed, and unit policies regarding patient care and visiting hours. Patient now on continuous telemetry monitoring, tele box # 21 and telemetry reading on arrival to unit is 82. Patient on room air, O2 Sat in the 90s weighed by bed scale and encouraged to call if he needs something. All questions and concerns addressed, patient verbalized understanding. Note: Patient is ambulatory, steady gait noted. No acute distress noted.
[2020-03-08 19:00] VITALS: BP 98/63
[2020-03-08 19:44] LABS: Cholesterol 166 mg/dL (< 200); HDL Cholesterol 53 mg/dL (40-59); LDL Cholesterol 89 mg/dL (< 100); Triglycerides 188 mg/dL (< 150)
--- NOTE | 2020-03-08 21:00 | NUR ---
03/08/20. 1900. PATIENT MET IN ROOM AMBULATING TO THE BATHROOM. DENEID PAIN. ALERT AND ORIENTED.
[2020-03-08] MEDS: CARVEDILOL 3.125 MG TAB PO SCH (21:39)
[2020-03-08] MEDS: FAMOTIDINE 20 MG TAB PO SCH (21:40)
[2020-03-08] MEDS: ATORVASTATIN 20 MG TAB PO SCH (21:40)
[2020-03-08 21:53] VITALS: BP 116/54
[2020-03-09 05:42] VITALS: BP 128/52
[2020-03-09 05:46] LABS: Basophils # (auto) 0.1 10 ^3/uL (0-0.2); Basophils % (auto) 1.2 % (0.0-2.0); Eosinophils # (auto) 0.2 10 ^3/uL (0-0.8); Eosinophils % (auto) 4.7 % (0.0-7.0); Hematocrit 43.2 % (41.0-53.0); Hemoglobin 13.9 g/dL (13.5-17.5); Lymphocytes # (auto) 1.4 10 ^3/uL (0.4-5.4); Lymphocytes % (auto) 27.1 % (10.0-50.0); Mean Corpuscular Hemoglobin 28.6 pg (28.0-32.0); Mean Corpuscular Hgb Conc. 32.2 g/dL (32.0-36.0); Mean Corpuscular Volume 88.7 fL (80.0-100.0); Monocytes # (auto) 0.7 10 ^3/uL (0-1.3); Monocytes % (auto) 13.1 % (0.0-12.0); Neutrophils # (auto) 2.9 10 ^3/uL (1.6-8.6); Neutrophils % (auto) 53.9 % (37.0-80.0); Nucleated Red Blood Cells % 0.3 %; Platelet Count (auto) 204 10^3/uL (140-450); Red Blood Cells 4.87 10^6/uL (4.5-5.90); White Blood Cell 5.3 10^3/uL (4.4-10.8)
[2020-03-09] MEDS: FUROSEMIDE 100 MG/10ML VIAL IV SCH ×2 (06:02→18:09)
[2020-03-09 06:05] LABS: INR 1.11 (0.9-1.15); Partial Thromboplastin Time 29.3 sec (23.64-32.05)
[2020-03-09 06:09] LABS: Potassium 3.9 mmol/L (3.5-5.1)
--- NOTE | 2020-03-09 06:18 | NUR ---
PATIENT SLEPT ALL NIGHT. HAS NO NEW COMPLAINTS.
[2020-03-09 06:24] LABS: Albumin 3.3 g/dL (3.4-5.0); Bilirubin, Total 0.7 mg/dL (0.2-1.0); Calcium 8.5 mg/dL (8.5-10.1); Magnesium 2.6 mg/dL (1.6-2.6); Phosphorus 4.1 mg/dL (2.5-4.90)
[2020-03-09 08:00] VITALS: BP 107/58
[2020-03-09] MEDS: DOCUSATE SOD 100 MG CAP PO SCH (10:00)
[2020-03-09 13:00] VITALS: BP 109/61
[2020-03-09] MEDS ORDERED: RANOLAZINE ER 500 MG TAB PO ONE (13:15)
[2020-03-09] MEDS: ASPirin 81 mg TAB PO SCH (13:21)
[2020-03-09] MEDS: CARVEDILOL 3.125 MG TAB PO SCH ×2 (13:22→22:37)
[2020-03-09] MEDS: LISINOPRIL 5 MG TAB PO SCH (13:23)
[2020-03-09] MEDS: ENOXAPARIN SOD 40 MG/0.4 ML SYRINGE SC SCH (13:23)
[2020-03-09] MEDS: FAMOTIDINE 20 MG TAB PO SCH ×2 (13:23→22:40)
[2020-03-09] MEDS ORDERED: MORPHINE SULF INJ 2 MG/ML SYRINGE 1ML IV PRN (14:45)
[2020-03-09 16:39] VITALS: BP 100/60
--- NOTE | 2020-03-09 19:45 | NUR ---
RT NOTE PT WAS SEEN BY RT FOR PRN HHN TX. PT IS AWAKE AND ALERT WITHOUT SOB OR DISTRESS NOTED. PT STTES NO TX NEEDED AT THIS TIME. HR 66, RR 16, BS CTA, POX 97% ON ROOM AIR. PT AWARE TO CALL IF TX NEEDED. CONT ORDERED Addendum: 03/09/20 at 2030 by Zita Nolan RT Amended: Links added.
[2020-03-09 20:00] VITALS: BP 100/60
[2020-03-09 21:14] VITALS: BP 105/68
[2020-03-09] MEDS: RANOLAZINE ER 500 MG TAB PO SCH (22:38)
[2020-03-09] MEDS: ATORVASTATIN 20 MG TAB PO SCH (22:38)
[2020-03-09] MEDS: POTASSIUM CHL 10 Meq TABLET PO SCH (22:41)
[2020-03-09] MEDS: HYDROcodone-ACET 5/325MG TAB PO PRN (22:41)
[2020-03-10 04:52] VITALS: BP 95/57
[2020-03-10] MEDS: FUROSEMIDE 100 MG/10ML VIAL IV SCH (05:16)
--- NOTE | 2020-03-10 05:19 | NUR ---
PT RESTING WELL WITH NO COMPLAINTS OF PAIN; AMBULATORY TO THE BATHROOM WITHOUT ASSISTANCE;WILL CONTINUE TO MONITOR.
--- NOTE | 2020-03-10 06:01 | NUR ---
PT ASSESSED FOR PRN MED NEB TX. SPO2 98% ON RA, HR 57. PT DENIES ANY RESPIRATORY DISTRESS. NO TX INDICATED AT THIS TIME. PT IS AWARE TO HAVE RT PAGED IF TX NEEDED.
[2020-03-10 06:29] LABS: Potassium 4.6 mmol/L (3.5-5.1)
[2020-03-10 06:34] LABS: BUN/Creatinine Ratio 17.4; Calcium 8.6 mg/dL (8.5-10.1)
--- NOTE | 2020-03-10 07:25 | NUR ---
CARE ENDORSED TO STEF VEGA.
--- NOTE | 2020-03-10 07:27 | NUR ---
Opening Shift Note Assumed care of patient, resting in bed with eyes closed. No S/S of distress/SOB or pain. Bed is set in lowest locked position with side rails up x 2 for safety and call light is within reach, will continue to monitor for changes Q1hr and PRN.
[2020-03-10 08:04] VITALS: BP 97/56
[2020-03-10 08:32] VITALS: BP 97/56
[2020-03-10] MEDS: CARVEDILOL 3.125 MG TAB PO SCH ×2 (09:22→21:56)
[2020-03-10] MEDS: ASPirin 81 mg TAB PO SCH (09:32)
[2020-03-10] MEDS: RANOLAZINE ER 500 MG TAB PO SCH ×2 (09:32→21:38)
[2020-03-10] MEDS: FAMOTIDINE 20 MG TAB PO SCH ×2 (09:32→21:37)
[2020-03-10] MEDS: POTASSIUM CHL 10 Meq TABLET PO SCH ×2 (09:32→21:38)
[2020-03-10] MEDS: DOCUSATE SOD 100 MG CAP PO SCH (09:33)
[2020-03-10] MEDS: ENOXAPARIN SOD 40 MG/0.4 ML SYRINGE SC SCH (09:33)
[2020-03-10] MEDS: HYDROcodone-ACET 5/325MG TAB PO PRN (09:35)
[2020-03-10] MEDS: LISINOPRIL 5 MG TAB PO SCH (09:41)
--- NOTE | 2020-03-10 11:20 | NUR ---
MD rounding at bedside Dr. Almazan, discussed discharge planning with patient. Patient verbalized understanding.
[2020-03-10 12:33] VITALS: BP 96/52
--- NOTE | 2020-03-10 12:50 | NUR ---
Spoke to MD in rehards to BP parameters Per MD patient is clear for discharge if SBP is greater than 100 in one hour. Addendum: 03/10/20 at 1636 by Hollie Rankin RN RN correction of spelling of rehards, "regards"
--- NOTE | 2020-03-10 13:50 | NUR ---
BP re-assessment BP at this time is 90/53, upon re-check it is 98/58. MD notified, Dr. Almazan. Per re-check BP at 15:30.
[2020-03-10] MEDS ORDERED: RANO500T PO (14:52)
--- NOTE | 2020-03-10 15:30 | NUR ---
Herminio Almazan, to make aware of patient's BP 92/55. Awaiting call back.
--- NOTE | 2020-03-10 16:15 | NUR ---
Assessment Patient is a 54-year old male who is alert and oriented. Patient states prior to admission he was living in the streets and has been homeless for at least 2 years. Patient informed me he receives food stamps with an amount of 194 dollars and 220 dollars general release with the [facility]. Patient stated he is trying to apply for SSI and change his health plan to the [facility]. Patient informed me he has a zoll life vest. Patient stated he was once staying at [facility] in [facility] but when he received his life vest on his [facility] admission they did not want to accept him back due to his medical condition. Discussed with patient how to obtain service through the [facility] and local [facility]. Provided patient with community resources and offered him with taxi voucher within 30 miles and patient agreed. Patient accepted resources. Provided information to clothes closet and meal prior to discharge. Completed homeless assessment and patient signed homeless waiver. Addendum: 03/13/20 at 0846 by RADHA HYDE Amended: Links added.
--- NOTE | 2020-03-10 16:33 | NUR ---
Re-paged MD Dr. Almazan, re-assessment of BP is 91/57. Awaiting call back at this time.
[2020-03-10 16:48] VITALS: BP 91/57
--- NOTE | 2020-03-10 17:21 | NUR ---
Spoke to MD in regards to discharge Per MD, Dr. Bass, discharge is on hold due to blood pressure.
--- NOTE | 2020-03-10 19:17 | NUR ---
Care endorsed to NOC RN.
--- NOTE | 2020-03-10 19:20 | NUR ---
Opening Shift Note Assumed care of patient. Patient is awake and alert. No S/S of distress/SOB or pain. Instructed on POC and to call for assist PRN, will continue to monitor for changes Q1hr and PRN. Bed locked in lowest position and bed rail up x2. Call light within reach.
[2020-03-10] MEDS: ATORVASTATIN 20 MG TAB PO SCH (21:38)
[2020-03-10 22:00] VITALS: BP 98/64
--- NOTE | 2020-03-10 23:22 | NUR ---
Respiratory note: ASSESSED PT FOR PRN MED NEB AT THIS TIME, PT DENIES SOB AT THIS TIME, NO RESP DISTRESS NOTED, NO TX INDICATED. PULSE OX 97% ON RA, HR 69, RR 18, BILATERAL BS CLEAR.
[2020-03-11 05:00] VITALS: BP 96/56
--- NOTE | 2020-03-11 07:15 | NUR ---
Opening Shift Note Assumed care of patient, resting in bed with eyes closed. No S/S of distress/SOB or pain, breaths are even and unlabored. Bed is set in lowest locked position with side rails up x 2 for safety and call light is within reach, will continue to monitor for changes Q1hr and PRN.
[2020-03-11 08:00] VITALS: BP 101/55
[2020-03-11 09:00] VITALS: BP 101/55
[2020-03-11] MEDS: ENOXAPARIN SOD 40 MG/0.4 ML SYRINGE SC SCH (09:55)
[2020-03-11] MEDS: ASPirin 81 mg TAB PO SCH (09:56)
[2020-03-11] MEDS: FAMOTIDINE 20 MG TAB PO SCH (09:56)
[2020-03-11] MEDS: RANOLAZINE ER 500 MG TAB PO SCH (09:56)
[2020-03-11] MEDS: POTASSIUM CHL 10 Meq TABLET PO SCH (09:56)
[2020-03-11] MEDS: DOCUSATE SOD 100 MG CAP PO SCH (09:57)
[2020-03-11] MEDS: CARVEDILOL 3.125 MG TAB PO SCH (09:58)
[2020-03-11] MEDS: LISINOPRIL 5 MG TAB PO SCH (10:00)
--- NOTE | 2020-03-11 10:04 | NUR ---
Respiratory note: ASSESSED PT FOR PRN MED NEB AT THIS TIME, PT DENIES SOB AT THIS TIME, NO RESP DISTRESS NOTED, NO TX INDICATED. PULSE OX 98% ON RA, HR 61, RR 16, BILATERAL BS CLEAR. PATIENT KNOWS TO HAVE RT PAGED IF TX IS NEEDED.
--- NOTE | 2020-03-11 11:06 | NUR ---
MD rounding at bedside Dr. Almazan, discussed discharge planning with patient, patient verbalized understanding.
--- NOTE | 2020-03-11 11:30 | NUR ---
Paged speed belt sander tender Dr. Carmona, to notify MD that the discharge medication prescription for Ranexa is not covered by patient's insurance, awaiting call back at this time.
[2020-03-11 13:00] VITALS: BP 98/56
--- NOTE | 2020-03-11 13:37 | NUR ---
Spoke to on-call infantry assaultman Dr. Sevilla, per MD patient is to be discharged home without Ranexa.
--- NOTE | 2020-03-11 14:10 | NUR ---
Spoke to MD Dr. Almazan, per MD may proceed with discharge.
[2020-03-11 14:55] VITALS: BP 98/56
--- NOTE | 2020-03-11 16:30 | NUR ---
Discharge instructions given as ordered. Encourage to follow up with PMD as instructed, information provided to patient for follow up appointment with PCP and french edge operator. All questions and concerns addressed. Patient verbalized understanding. IV removed with catheter intact, pressure dressing applied. Telemetry unit returned to ICU. Patient taken to vehicle with all personal belongings, accompanied by staff. No distress noted at time of departure.
== END 2020-03-11 16:30 | disposition home or self-care (01) | DRG 198 ==
LOC: ER 12:17 → TELE 12:18 → TELE-CENTR 17:45
PROVIDERS: ADMIT Hospitalist; ATTEND Internal Medicine
DX: R07.89 Other chest pain (principal); I25.10 Atherosclerotic heart disease of native coronary artery without angina pectoris; I50.43 Acute on chronic combined systolic (congestive) and diastolic (congestive) heart failure; I27.20 Pulmonary hypertension, unspecified; I42.8 Other cardiomyopathies; Z59.0 Homelessness; I11.0 Hypertensive heart disease with heart failure; E11.9 Type 2 diabetes mellitus without complications; J44.9 Chronic obstructive pulmonary disease, unspecified; E78.5 Hyperlipidemia, unspecified; F12.90 Cannabis use, unspecified, uncomplicated; F17.200 Nicotine dependence, unspecified, uncomplicated; F31.9 Bipolar disorder, unspecified; F15.90 Other stimulant use, unspecified, uncomplicated; Z79.899 Other long term (current) drug therapy; Z83.3 Family history of diabetes mellitus; Z91.14 Patient's other noncompliance with medication regimen; Z91.19 Patient's noncompliance with other medical treatment and regimen; Z95.1 Presence of aortocoronary bypass graft
CPT/HCPCS: 36415; 71046; 80048; 80053; 80061; 80307; 81001; 83036; 83735; 83880; 84100; 84443; 84484; 85025; 85379; 85610; 85730; 93005; 94640; G0378

== ENCOUNTER 2020-03-15 23:03 | Inpatient (IN) | payer MEDICAID, OTHER ==
[~2020-03-15] VITALS: Ht 175.3 cm; Wt 88.7 kg
[~2020-03-15 23:03] MED LIST changes: +RANO500T PO
[2020-03-16] MEDS ORDERED: SODIUM CHLORIDE 0.9% 1,000 ML IV ONE (01:15)
[2020-03-16] MEDS ORDERED: MORPHINE SULFATE 4 MG/ML SYR/VIAL IV ONE ×2 (01:15→03:00)
[2020-03-16] MEDS ORDERED: ONDANSETRON HCL 4 MG/2 ML VIAL IV ONE (01:15)
[2020-03-16] MEDS ORDERED: IOHEXOL 300 MG/ML 100ML BOTTLE IJ ONE (01:24)
[2020-03-16 01:46] LABS: Basophils # (auto) 0.1 10 ^3/uL (0-0.2); Basophils % (auto) 1.3 % (0.0-2.0); Eosinophils # (auto) 0.3 10 ^3/uL (0-0.8); Eosinophils % (auto) 4.4 % (0.0-7.0); Hematocrit 43.3 % (41.0-53.0); Hemoglobin 13.9 g/dL (13.5-17.5); Lymphocytes # (auto) 2.1 10 ^3/uL (0.4-5.4); Lymphocytes % (auto) 33.4 % (10.0-50.0); Mean Corpuscular Hemoglobin 28.2 pg (28.0-32.0); Mean Corpuscular Volume 88.1 fL (80.0-100.0); Monocytes # (auto) 0.8 10 ^3/uL (0-1.3); Monocytes % (auto) 13.4 % (0.0-12.0); Neutrophils # (auto) 2.9 10 ^3/uL (1.6-8.6); Neutrophils % (auto) 47.5 % (37.0-80.0); Platelet Count (auto) 182 10^3/uL (140-450); Red Blood Cells 4.91 10^6/uL (4.5-5.90); Red Cell Distribution Width 18.8 % (11.8-14.3); White Blood Cell 6.2 10^3/uL (4.4-10.8)
[2020-03-16 01:52] LABS: Nucleated Red Blood Cells % 0.1 %
[2020-03-16 01:56] LABS: INR 1.02 (0.9-1.15); Partial Thromboplastin Time 27.4 sec (23.64-32.05)
[2020-03-16 01:56] LABS: Urine Bacteria NONE SEEN /hpf (None Seen); Urine Blood Negative /uL (Negative); Urine Hyaline Cast FEW /lpf (0 - 2); Urine WBC <1 /hpf (0 - 3)
[2020-03-16 02:01] LABS: Albumin 3.2 g/dL (3.4-5.0); Calcium 8.1 mg/dL (8.5-10.1); Potassium 4.8 mmol/L (3.5-5.1)
[2020-03-16 02:06] LABS: Bilirubin, Total 0.5 mg/dL (0.2-1.0); Total Protein 7.1 g/dL (6.4-8.2)
[2020-03-16] MEDS ORDERED: metroNIDAZOLE 500 MG TAB PO ONE (03:15)
[2020-03-16] MEDS ORDERED: CIPROFLOXACIN 400MG/200ML 200 ML IV ONE (03:15)
[2020-03-16] MEDS ORDERED: ONDANSETRON HCL 4 MG/2 ML VIAL IV PRN (07:15)
[2020-03-16] MEDS: D5W/SOD CHLO 0.9% 1,000 ML IV SCH ×2 (08:15→20:35)
[2020-03-16] MEDS: MORPHINE SULF INJ 2 MG/ML SYRINGE 1ML IV PRN (08:27)
[2020-03-16 09:31] VITALS: BP 105/68
[2020-03-16] MEDS: PANTOPRAZOLE 40 MG/10 ML VIAL INJ IV SCH (10:00)
[2020-03-16] MEDS ORDERED: FURO40TA4 PO (11:16)
[2020-03-16] MEDS ORDERED: LISI-646 PO (11:16)
[2020-03-16] MEDS ORDERED: POTA10TA51 PO (11:22)
[2020-03-16] MEDS ORDERED: SPIR25TA8 PO (11:28)
[2020-03-16] MEDS ORDERED: CARV12.544 PO (11:30)
[2020-03-16] MEDS ORDERED: LISI10TA6 PO (11:50)
[2020-03-16 13:14] VITALS: BP 100/62
[2020-03-16 16:42] VITALS: BP 103/65
[2020-03-16] MEDS: PIPERACILLIN-TAZOB 3.375GM 100 ML IV SCH (18:00)
[2020-03-16 23:11] VITALS: BP 95/50
[2020-03-17] MEDS: PIPERACILLIN-TAZOB 3.375GM 100 ML IV SCH ×4 (00:02→17:13)
[2020-03-17 05:40] VITALS: BP 98/62
[2020-03-17 06:26] LABS: Basophils # (auto) 0.1 10 ^3/uL (0-0.2); Basophils % (auto) 0.9 % (0.0-2.0); Eosinophils # (auto) 0.2 10 ^3/uL (0-0.8); Eosinophils % (auto) 4.5 % (0.0-7.0); Hematocrit 46.2 % (41.0-53.0); Hemoglobin 14.6 g/dL (13.5-17.5); Lymphocytes # (auto) 1.6 10 ^3/uL (0.4-5.4); Lymphocytes % (auto) 29.5 % (10.0-50.0); Mean Corpuscular Hemoglobin 28.1 pg (28.0-32.0); Mean Corpuscular Hgb Conc. 31.6 g/dL (32.0-36.0); Mean Corpuscular Volume 88.8 fL (80.0-100.0); Monocytes # (auto) 0.6 10 ^3/uL (0-1.3); Monocytes % (auto) 11.4 % (0.0-12.0); Neutrophils # (auto) 2.9 10 ^3/uL (1.6-8.6); Neutrophils % (auto) 53.7 % (37.0-80.0); Nucleated Red Blood Cells % 0.1 %; Platelet Count (auto) 192 10^3/uL (140-450); Red Cell Distribution Width 18.5 % (11.8-14.3); White Blood Cell 5.5 10^3/uL (4.4-10.8)
[2020-03-17 06:50] LABS: Albumin 3.3 g/dL (3.4-5.0); BUN/Creatinine Ratio 14.5; Calcium 8.5 mg/dL (8.5-10.1); Magnesium 2.2 mg/dL (1.6-2.6); Total Protein 6.9 g/dL (6.4-8.2)
[2020-03-17 09:00] VITALS: BP 111/70
[2020-03-17] MEDS: PANTOPRAZOLE 40 MG/10 ML VIAL INJ IV SCH (10:33)
[2020-03-17] MEDS: D5W/SOD CHLO 0.9% 1,000 ML IV SCH (10:33)
[2020-03-17 13:00] VITALS: BP 125/75
[2020-03-17 17:00] VITALS: BP 118/66
[2020-03-17 22:51] VITALS: BP 116/67
[2020-03-18] MEDS: PIPERACILLIN-TAZOB 3.375GM 100 ML IV SCH ×2 (00:09→06:12)
[2020-03-18 05:09] VITALS: BP 116/72
[2020-03-18 09:00] VITALS: BP 140/37
[2020-03-18] MEDS: PANTOPRAZOLE 40 MG/10 ML VIAL INJ IV SCH (09:21)
[2020-03-18] MEDS ORDERED: CARVEDILOL 3.125 MG TAB PO SCH (10:00)
[2020-03-18] MEDS: LISINOPRIL 5 MG TAB PO SCH (11:10)
[2020-03-18] MEDS: CARVEDILOL 3.125 MG TAB PO SCH ×2 (11:12→18:39)
[2020-03-18 12:46] VITALS: BP 121/70
[2020-03-18] MEDS: metroNIDAZOLE 500MG/100ML 100 ML IV SCH ×2 (15:01→23:35)
[2020-03-18] MEDS ORDERED: ROCURONIUM 10MG/ML 10ML VIAL IV ONE (15:08)
[2020-03-18] MEDS ORDERED: ETOMIDATE (2MG/ML) 20ML VIAL IV ONE (15:09)
[2020-03-18] MEDS ORDERED: PROPOFOL 10 MG/ML 20 ML IV ONE (15:09)
[2020-03-18] MEDS ORDERED: LIDOCAINE 2% (LOCAL ANESTH.) PF 5ml SDV ONE (15:09)
[2020-03-18] MEDS ORDERED: fentaNYL CITRATE 100 MCG/2 ML VL ONE (15:10)
[2020-03-18] MEDS ORDERED: LIDOCAINE 1% HCL (LOCAL ANESTH.) INJ 20ML MDV ONE (15:30)
[2020-03-18] MEDS ORDERED: SUCCINYLCHOLINE CHLORIDE 20 MG/ML 10ML VIAL IV ONE (15:47)
[2020-03-18] MEDS ORDERED: MIDAZOLAM HCL 1MG/1ML-2 ML VIAL ONE (15:49)
[2020-03-18] MEDS ORDERED: ePHEDrine SULFATE 50 MG/ML AMP ONE (16:12)
[2020-03-18] MEDS ORDERED: GLYCOPYRROLATE 0.2 MG/ML 1ML VIAL ONE (16:43)
[2020-03-18] MEDS ORDERED: NEOSTIGMINE 1 MG/ML INJ (10mg/10ML VIAL) ONE (16:43)
[2020-03-18] MEDS ORDERED: HYDROmorphone HCL 2 MG/ML VL IV PRN (17:15)
[2020-03-18] MEDS ORDERED: hydrALAZINE HCL 20 MG/ML VL IV PRN (17:15)
[2020-03-18] MEDS ORDERED: LABETALOL HCL 5 MG/ML 4ML SYRINGE IV PRN (17:15)
[2020-03-18] MEDS ORDERED: ePHEDrine SULFATE 50 MG/ML AMP IV PRN (17:15)
[2020-03-18] MEDS ORDERED: ONDANSETRON HCL 4 MG/2 ML VIAL IV PRN (17:15)
[2020-03-18] MEDS: MORPHINE SULF INJ 2 MG/ML SYRINGE 1ML IV PRN ×2 (18:40→22:19)
[2020-03-18] MEDS ORDERED: LABETALOL HCL 5 MG/ML 4ML SYRINGE IV ONE (18:57)
[2020-03-18 20:00] VITALS: BP 132/76
[2020-03-18] MEDS: HYDROcodone-ACET 5/325MG TAB PO PRN (20:26)
[2020-03-18 22:00] VITALS: BP 138/79
[2020-03-19] MEDS: MORPHINE SULF INJ 2 MG/ML SYRINGE 1ML IV PRN ×2 (02:26→18:08)
[2020-03-19 05:00] VITALS: BP 109/60
[2020-03-19] MEDS: metroNIDAZOLE 500MG/100ML 100 ML IV SCH ×3 (05:25→21:56)
[2020-03-19] MEDS: HYDROcodone-ACET 5/325MG TAB PO PRN ×2 (05:26→22:11)
[2020-03-19 06:49] LABS: Basophils # (auto) 0 10 ^3/uL (0-0.2); Basophils % (auto) 0.3 % (0.0-2.0); Eosinophils # (auto) 0 10 ^3/uL (0-0.8); Hematocrit 47.5 % (41.0-53.0); Hemoglobin 15.4 g/dL (13.5-17.5); Mean Corpuscular Hemoglobin 28.2 pg (28.0-32.0); Mean Corpuscular Hgb Conc. 32.5 g/dL (32.0-36.0); Mean Corpuscular Volume 86.9 fL (80.0-100.0); Monocytes # (auto) 0.4 10 ^3/uL (0-1.3); Monocytes % (auto) 4.8 % (0.0-12.0); Neutrophils # (auto) 6.8 10 ^3/uL (1.6-8.6); Neutrophils % (auto) 82.9 % (37.0-80.0); Platelet Count (auto) 234 10^3/uL (140-450); Red Blood Cells 5.46 10^6/uL (4.5-5.90); Red Cell Distribution Width 18.3 % (11.8-14.3); White Blood Cell 8.2 10^3/uL (4.4-10.8)
[2020-03-19 07:11] LABS: Potassium 3.9 mmol/L (3.5-5.1)
[2020-03-19 07:19] LABS: Albumin 3.2 g/dL (3.4-5.0); BUN/Creatinine Ratio 14.2; Calcium 8.7 mg/dL (8.5-10.1)
[2020-03-19 07:21] LABS: Bilirubin, Total 0.9 mg/dL (0.2-1.0); Total Protein 7.1 g/dL (6.4-8.2)
[2020-03-19] MEDS: CARVEDILOL 3.125 MG TAB PO SCH ×2 (08:00→18:04)
[2020-03-19 09:00] VITALS: BP 120/60
[2020-03-19] MEDS: cefTRIAXone 1GM/50ML D5W 50 ML IV SCH (09:00)
[2020-03-19] MEDS: PANTOPRAZOLE 40 MG/10 ML VIAL INJ IV SCH (10:00)
[2020-03-19] MEDS: LISINOPRIL 5 MG TAB PO SCH (10:00)
[2020-03-19 13:00] VITALS: BP 128/68
[2020-03-19 17:00] VITALS: BP 118/83
[2020-03-19 22:00] VITALS: BP 128/78
[2020-03-20] MEDS: HYDROcodone-ACET 5/325MG TAB PO PRN (04:27)
[2020-03-20 04:45] VITALS: BP 106/55
[2020-03-20] MEDS: metroNIDAZOLE 500MG/100ML 100 ML IV SCH ×2 (05:35→14:00)
[2020-03-20 09:00] VITALS: BP 113/70
[2020-03-20] MEDS: cefTRIAXone 1GM/50ML D5W 50 ML IV SCH (09:33)
[2020-03-20] MEDS: PANTOPRAZOLE 40 MG/10 ML VIAL INJ IV SCH (09:36)
[2020-03-20] MEDS: CARVEDILOL 3.125 MG TAB PO SCH (09:40)
[2020-03-20] MEDS: LISINOPRIL 5 MG TAB PO SCH (09:41)
[2020-03-20 14:39] VITALS: BP 118/80
== END 2020-03-20 13:52 | disposition home or self-care (01) | DRG 263 ==
LOC: ER 23:05 → OVERFLOW 23:06 → CENTRAL 03-16 09:20
PROVIDERS: ADMIT Nurse Practitioner; ATTEND Internal Medicine
PROC: 0FT44ZZ Resection of Gallbladder, Percutaneous Endoscopic Approach (ICD-10-PCS; principal; 2020-03-18 15:49)
DX: K80.00 Calculus of gallbladder with acute cholecystitis without obstruction (principal); I42.8 Other cardiomyopathies; E44.1 Mild protein-calorie malnutrition; I11.0 Hypertensive heart disease with heart failure; I50.42 Chronic combined systolic (congestive) and diastolic (congestive) heart failure; K40.90 Unilateral inguinal hernia, without obstruction or gangrene, not specified as recurrent; I25.10 Atherosclerotic heart disease of native coronary artery without angina pectoris; E78.00 Pure hypercholesterolemia, unspecified; E78.5 Hyperlipidemia, unspecified; F12.90 Cannabis use, unspecified, uncomplicated; F31.9 Bipolar disorder, unspecified; K59.00 Constipation, unspecified; Z88.8 Allergy status to other drugs, medicaments and biological substances; Z79.899 Other long term (current) drug therapy; Z83.3 Family history of diabetes mellitus; Z68.28 Body mass index [BMI] 28.0-28.9, adult; Z82.49 Family history of ischemic heart disease and other diseases of the circulatory system; Z87.74 Personal history of (corrected) congenital malformations of heart and circulatory system; Z11.59 Encounter for screening for other viral diseases
CPT/HCPCS: 36415; 71045; 74177; 74181; 76705; 78226; 80053; 80320; 81001; 82150; 83605; 83690; 83735; 83880; 85025; 85610; 85730; 86850; 86900; 86901; 87040; 87081; 93005; 96361; 96365; 96375; 96376; C9113; G0378; J0330; J0696; J2001; J2250; J2405; J2543; J2704; J3490

== ENCOUNTER → 2020-03-28 | Emergency (ER) | payer MEDICAID ==
[~2020-03-28] VITALS: Ht 175.3 cm; Wt 81.6 kg
[~2020-03-28] MED LIST changes: -ASPI-404 PO; +ASPI-543 PO; -BENZ100C97 PO; +CARV12.544 PO; +LISI-648 PO; -LOSA25TA38 PO; -METO25TA36 PO; +MORPHINE SULF INJ 2 MG/ML SYRINGE 1ML IV ONE; +ONDANSETRON HCL 4 MG/2 ML VIAL IV ONE; +POTA10TA51 PO; +SPIR25TA8 PO
[2020-03-28 18:15] LABS: Urine Bacteria NONE SEEN /hpf (None Seen); Urine Blood Negative /uL (Negative); Urine Hyaline Cast FEW /lpf (0 - 2); Urine Mucus FEW (None Seen); Urine Specific Gravity 1.013 (1.001-1.035); Urine WBC 1 /hpf (0 - 3)
[2020-03-28 18:21] LABS: Basophils # (auto) 0.1 10 ^3/uL (0-0.2); Basophils % (auto) 0.9 % (0.0-2.0); Eosinophils # (auto) 0.3 10 ^3/uL (0-0.8); Eosinophils % (auto) 4.2 % (0.0-7.0); Hematocrit 50.2 % (41.0-53.0); Hemoglobin 16.4 g/dL (13.5-17.5); Lymphocytes # (auto) 1.9 10 ^3/uL (0.4-5.4); Lymphocytes % (auto) 28.7 % (10.0-50.0); Mean Corpuscular Hemoglobin 28.6 pg (28.0-32.0); Mean Corpuscular Hgb Conc. 32.7 g/dL (32.0-36.0); Mean Corpuscular Volume 87.4 fL (80.0-100.0); Monocytes # (auto) 0.8 10 ^3/uL (0-1.3); Monocytes % (auto) 11.3 % (0.0-12.0); Neutrophils # (auto) 3.7 10 ^3/uL (1.6-8.6); Neutrophils % (auto) 54.9 % (37.0-80.0); Nucleated Red Blood Cells % 0.2 %; Platelet Count (auto) 262 10^3/uL (140-450); Red Blood Cells 5.74 10^6/uL (4.5-5.90); Red Cell Distribution Width 18.7 % (11.8-14.3); White Blood Cell 6.7 10^3/uL (4.4-10.8)
[2020-03-28 18:38] LABS: Calcium 9.7 mg/dL (8.5-10.1); Potassium 4.6 mmol/L (3.5-5.1)
[2020-03-28 18:41] LABS: Bilirubin, Total 0.6 mg/dL (0.2-1.0); Total Protein 8.6 g/dL (6.4-8.2)
[2020-03-28 21:00] VITALS: BP 111/60
== END | disposition home or self-care (01) ==
LOC: ER 17:27
DX: K40.90 Unilateral inguinal hernia, without obstruction or gangrene, not specified as recurrent (principal); N20.0 Calculus of kidney; I11.0 Hypertensive heart disease with heart failure; I50.9 Heart failure, unspecified; I25.10 Atherosclerotic heart disease of native coronary artery without angina pectoris; E78.5 Hyperlipidemia, unspecified
CPT/HCPCS: 36415; 74176; 80053; 81001; 83690; 85025; 93005; 96374; 96375; 99285; J2270; J2405

== ENCOUNTER 2020-04-04 10:37 | Inpatient (IN) | payer MEDICAID ==
[~2020-04-04] VITALS: Ht 175.3 cm; Wt 86.4 kg
[~2020-04-04 10:37] MED LIST changes: -MORPHINE SULF INJ 2 MG/ML SYRINGE 1ML IV ONE; -ONDANSETRON HCL 4 MG/2 ML VIAL IV ONE
[2020-04-04 11:07] LABS: Urine Bacteria NONE SEEN /hpf (None Seen); Urine Blood Negative /uL (Negative); Urine Hyaline Cast FEW /lpf (0 - 2); Urine WBC <1 /hpf (0 - 3)
[2020-04-04 11:21] LABS: Alcohol, Urine < 3.0 mg/dL (0-10); Amphetamine Screen, Urine NEGATIVE (NEGATIVE); Barbiturate Scree,Urine NEGATIVE (NEGATIVE); Benzodiazephine Screen, Urine NEGATIVE (NEGATIVE); Cannabinoid Screen, Urine POSITIVE (NEGATIVE); Cocaine Screen, Urine NEGATIVE (NEGATIVE); Opiate Scree,Urine NEGATIVE (NEGATIVE); Phencyclidine Screen, Urine NEGATIVE (NEGATIVE)
[2020-04-04 11:22] LABS: Basophils # (auto) 0 10 ^3/uL (0-0.2); Basophils % (auto) 0.3 % (0.0-2.0); Eosinophils # (auto) 0.4 10 ^3/uL (0-0.8); Hematocrit 47.8 % (41.0-53.0); Hemoglobin 15.5 g/dL (13.5-17.5); Lymphocytes # (auto) 1.9 10 ^3/uL (0.4-5.4); Lymphocytes % (auto) 28.8 % (10.0-50.0); Mean Corpuscular Hemoglobin 28.4 pg (28.0-32.0); Mean Corpuscular Hgb Conc. 32.4 g/dL (32.0-36.0); Mean Corpuscular Volume 87.6 fL (80.0-100.0); Monocytes # (auto) 0.8 10 ^3/uL (0-1.3); Monocytes % (auto) 12.7 % (0.0-12.0); Neutrophils # (auto) 3.4 10 ^3/uL (1.6-8.6); Neutrophils % (auto) 52.2 % (37.0-80.0); Nucleated Red Blood Cells % 0.1 %; Platelet Count (auto) 221 10^3/uL (140-450); Red Blood Cells 5.45 10^6/uL (4.5-5.90); Red Cell Distribution Width 18.2 % (11.8-14.3); White Blood Cell 6.6 10^3/uL (4.4-10.8)
[2020-04-04 11:43] LABS: Anion Gap 4 (5-15); Blood Urea Nitrogen 24 mg/dL (7-18); Calcium 8.8 mg/dL (8.5-10.1); Carbon Dioxide 25 mmol/L (21-32); Chloride 107 mmol/L (98-107); Glucose 89 mg/dL (74-106); Lipase 606 U/L (73-393); Potassium 4.3 mmol/L (3.5-5.1); Sodium 136 mmol/L (136-145)
[2020-04-04] MEDS ORDERED: HYDROcodone-ACET 10/325MG TAB PO ONE (11:45)
[2020-04-04 11:49] LABS: Alanine Aminotransferase 76 U/L (16-61); Alkaline Phosphatase 111 U/L (45-117); Aspartate Aminotransferase 42 U/L (15-37); BUN/Creatinine Ratio 24.5; Bilirubin, Total 0.9 mg/dL (0.2-1.0); GFR African American 103 mL/min; GFR Non-African American 85 mL/min; Total Protein 8.3 g/dL (6.4-8.2)
[2020-04-04] MEDS ORDERED: NITROGLYCERIN 0.4 MG SL TAB SL PRN (13:00)
[2020-04-04] MEDS ORDERED: MORPHINE SULF INJ 2 MG/ML SYRINGE 1ML IV PRN (13:00)
[2020-04-04 13:25] VITALS: BP 130/77
[2020-04-04 14:00] VITALS: BP 130/77
--- NOTE | 2020-04-04 14:05 | NUR ---
CAME ON WC FROM ER, ALERT AND ORIENTED X4, NOT IN DISTRESS, CLEAR LS IN BILATERAL LUNG LOBES, RR=18 SAT=98%, COUGHING AND DEEP BREATHING ENCOURAGED, DEMONSTRATED AND VERBALIZED UNDERSTANDING, TOLERATED WELL, DENIED SOB AND CHEST PAIN, HEART R=84, ABDOMEN SOFT WITH ACTIVE BS, ABDOMINAL SURGICAL SITES X3 DRY AND INTACT OPEN TO AIR, LT. INGUINAL HERNIA TENDERNESS NOTED, GENERAL SKIN DRY AND INTACT ARM TO TOUCH, RADIAL AND PEDAL PULSES PALPABLE, CAP REFILL <3 SECONDS, RESTING ON BED, PAIN L=4/10 AT THIS MOMENT, HEAD OF BED ELEVATED, BED ON LOW POSITION, RAILS UP X2, CALL LIGHT ON REACH, VS T=97.6 P=64 JL=570/77, PENDING SURGICAL CONSULT, WILL CONTINUE MONITORING.
[2020-04-04 17:00] VITALS: BP 108/57
--- NOTE | 2020-04-04 19:12 | NUR ---
DR. GRAJEDA WAS CONTACTED FOR PENDING SURGICAL CONSULT, DR. GRAJEDA WILL SEE THE PATIENT ON 04/05/20 REPORTED, MRSA SCREEN SAMPLE SENT TO THE LAB ORDERED, RESTING ON BED, NOT IN DISTRESS, DENIED PAIN, TOLERATED 100% OF DINNER TRAY, WILL CONTINUE MONITORING.
--- NOTE | 2020-04-04 19:32 | NUR ---
NOT IN DISTRESS, DENIED PAIN, REPORT WAS GIVEN TO THE BODY PAINTER RN.
--- NOTE | 2020-04-04 19:50 | NUR ---
Opening Shift Note Assumed care of patient, awake and alert. No S/S of distress/SOB or pain. Instructed on POC and to call for assist PRN, will continue to monitor for changes Q1hr and PRN.
[2020-04-04 20:00] VITALS: BP 134/75
[2020-04-04] MEDS: CARVEDILOL 12.5 MG TAB PO SCH (21:49)
[2020-04-04] MEDS: SPIRONOLACTONE 25 MG TAB PO SCH (21:49)
[2020-04-04] MEDS: DOCUSATE SOD 100 MG CAP PO SCH (21:49)
[2020-04-04] MEDS: RANOLAZINE ER 500 MG TAB PO SCH (21:49)
[2020-04-04 22:00] VITALS: BP 134/75
--- NOTE | 2020-04-04 22:00 | NUR ---
Refused Colace Patient refused Colace stated "I don't need to take that right now, I'm okay".
--- NOTE | 2020-04-04 22:30 | NUR ---
Snacks Patient stated to be hungry. Juice and cracker given.
[2020-04-05 05:09] VITALS: BP 100/57
[2020-04-05 05:58] LABS: INR 1.05 (0.9-1.15); Partial Thromboplastin Time 32.8 sec (23.64-32.05)
[2020-04-05 06:04] LABS: Potassium 4.3 mmol/L (3.5-5.1)
[2020-04-05 06:19] LABS: Albumin 3.8 g/dL (3.4-5.0); BUN/Creatinine Ratio 20.6; Bilirubin, Total 0.9 mg/dL (0.2-1.0); Calcium 8.8 mg/dL (8.5-10.1); Total Protein 7.7 g/dL (6.4-8.2)
[2020-04-05] MEDS ORDERED: D5W/SOD CHL 0.45%/KCL 20MEQ 1,000 ML IV SCH (07:15)
[2020-04-05] MEDS: CARVEDILOL 12.5 MG TAB PO SCH ×2 (09:00→17:21)
[2020-04-05] MEDS: PANTOPRAZOLE 40 MG/10 ML VIAL INJ IV SCH (10:06)
[2020-04-05] MEDS: SPIRONOLACTONE 25 MG TAB PO SCH ×2 (10:07→22:00)
[2020-04-05] MEDS: ATORVASTATIN 20 MG TAB PO SCH (10:07)
[2020-04-05] MEDS: DOCUSATE SOD 100 MG CAP PO SCH ×2 (10:07→21:42)
[2020-04-05] MEDS: RANOLAZINE ER 500 MG TAB PO SCH ×2 (10:07→21:42)
[2020-04-05] MEDS: LISINOPRIL 10 MG TAB PO SCH (10:08)
[2020-04-05 13:00] VITALS: BP 100/62
[2020-04-05] MEDS: D5W/SOD CHL 0.45%/KCL 20MEQ 1,000 ML IV SCH (13:39)
--- NOTE | 2020-04-05 15:35 | NUR ---
DR HEREDIA INFORMED FOR PENDING CARDIAC CLEARANCE, PT SCHEDULED TOMORROW 8AM FOR HERNIA REPAIR.
[2020-04-05 16:40] VITALS: BP 94/62
--- NOTE | 2020-04-05 20:00 | NUR ---
Opening Shift Note Assumed care of patient. Awake, alert and oriented. No S/S of distress/SOB or pain. Bed locked, in lowest position, call light within reach. Instructed on POC and to call for assist PRN. Will continue to monitor for changes Q1hr and PRN.
[2020-04-05 22:00] VITALS: BP 100/59
--- NOTE | 2020-04-06 | NUR ---
Medication held BP taken at 2200 was 100/59. Reassessed at 0000 BP was 96/52. Spironolactone was held. Will continue to monitor
[2020-04-06 05:00] VITALS: BP 97/52
--- NOTE | 2020-04-06 05:03 | NUR ---
IV insertion IV access obtained, via clean sterile technique by inserting 20 gauge catheter at left wrist after 1 attempt. IV secured properly. No trauma to site. Patient tolerated procedure well.
[2020-04-06] MEDS: D5W/SOD CHL 0.45%/KCL 20MEQ 1,000 ML IV SCH (05:40)
[2020-04-06 08:00] VITALS: BP 94/62
[2020-04-06] MEDS ORDERED: BUPIVACAINE 0.25% INJ 50ML VIAL ONE (08:41)
[2020-04-06 09:00] VITALS: BP 103/58
--- NOTE | 2020-04-06 09:00 | NUR ---
Patient take down to preop, alert and oriented x4, no s/s of distress noted at time of transfer. Patient chart given to preop nurse.
[2020-04-06] MEDS ORDERED: ceFAZolin 1GM/50ML 50 ML IV ONE (09:17)
[2020-04-06] MEDS ORDERED: LIDOCAINE 1% HCL (LOCAL ANESTH.) INJ 20ML MDV ONE (09:42)
[2020-04-06] MEDS ORDERED: SUCCINYLCHOLINE CHLORIDE 20 MG/ML 10ML VIAL IV ONE (09:42)
[2020-04-06] MEDS ORDERED: MIDAZOLAM HCL 1MG/1ML-2 ML VIAL ONE (09:45)
[2020-04-06] MEDS ORDERED: ETOMIDATE (2MG/ML) 20ML VIAL IV ONE (09:48)
[2020-04-06] MEDS ORDERED: ROCURONIUM 10MG/ML 10ML VIAL IV ONE (09:49)
[2020-04-06] MEDS: DOCUSATE SOD 100 MG CAP PO SCH ×2 (10:00→21:02)
[2020-04-06] MEDS ORDERED: fentaNYL CITRATE 100 MCG/2 ML VL ONE (10:05)
[2020-04-06] MEDS ORDERED: ePHEDrine SULFATE 50 MG/ML AMP ONE (10:29)
[2020-04-06] MEDS ORDERED: SODIUM CHLORIDE LOCK 10 ML ONE (10:29)
[2020-04-06] MEDS ORDERED: HYDROmorphone HCL 2 MG/ML VL IV PRN (10:30)
[2020-04-06] MEDS ORDERED: ONDANSETRON HCL 4 MG/2 ML VIAL IV PRN (10:30)
[2020-04-06] MEDS ORDERED: NALOXONE HCL 0.4 MG/ML VIAL IV PRN (10:30)
[2020-04-06] MEDS ORDERED: NEOSTIGMINE 1 MG/ML INJ (10mg/10ML VIAL) ONE (10:53)
[2020-04-06] MEDS ORDERED: GLYCOPYRROLATE 0.2 MG/ML 1ML VIAL ONE (10:53)
[2020-04-06] MEDS: HYDROmorphone HCL 2 MG/ML VL IV PRN ×4 (11:16→11:54)
--- NOTE | 2020-04-06 12:00 | NUR ---
Patient back from OR. Alert and oriented. Patient has no complaints at this time.
[2020-04-06 13:00] VITALS: BP 133/78
--- NOTE | 2020-04-06 13:00 | NUR ---
INCENTIVE SPIROMETER Patient given incentive spirometer and instructed on use. Patient instructed to use 10x an hour. Patient verbalized understanding of instructions.
--- NOTE | 2020-04-06 13:00 | NUR ---
Patient refused colace, states he has loose BM's and does not want to take colace. Dr coley.
[2020-04-06] MEDS: PANTOPRAZOLE 40 MG/10 ML VIAL INJ IV SCH (13:09)
[2020-04-06] MEDS: ATORVASTATIN 20 MG TAB PO SCH (13:09)
[2020-04-06] MEDS: CARVEDILOL 12.5 MG TAB PO SCH ×2 (13:09→16:52)
[2020-04-06] MEDS: SPIRONOLACTONE 25 MG TAB PO SCH ×2 (13:09→21:02)
[2020-04-06] MEDS: RANOLAZINE ER 500 MG TAB PO SCH ×2 (13:10→21:02)
[2020-04-06] MEDS: LISINOPRIL 10 MG TAB PO SCH (13:10)
--- NOTE | 2020-04-06 13:10 | NUR ---
Patient declined use of jock strap at this time, he asked that it be kept at bedside for when he is ready to use.
--- NOTE | 2020-04-06 14:51 | NUR ---
Patient up to ambulate to bathroom
--- NOTE | 2020-04-06 15:30 | NUR ---
Dr. Cmapos at nurses [facility], informed doctor that patient needs pain medication, since he is s/p hernia repair, stated he would order something. Awaiting orders to administer.
--- NOTE | 2020-04-06 15:55 | NUR ---
Est energy needs [id number] kcal (25-30 kcal/kg BW 82.3kg) Est protein needs 82-91g (1-1.1g/kg BW 82.3kg) Will reassess prn. Addendum: 04/06/20 at [address] Amended: Links added.
--- NOTE | 2020-04-06 16:01 | NUR ---
Patient decided to put on the jock strap. Patient currently wearing.
--- NOTE | 2020-04-06 16:14 | NUR ---
Paged Dr. Campos regarding pain medications for patients. Still nothing on EMAR, awaiting call back.
[2020-04-06] MEDS: MORPHINE SULF INJ 2 MG/ML SYRINGE 1ML IV PRN ×2 (16:52→21:03)
--- NOTE | 2020-04-06 16:53 | NUR ---
COREG HELD PATIENT JUST TOOK COREG 3 HOURS AGO WITH A HX OF LOW BPS.
[2020-04-06 17:00] VITALS: BP 114/64
[2020-04-06 21:30] VITALS: BP 113/61
[2020-04-07] MEDS: MORPHINE SULF INJ 2 MG/ML SYRINGE 1ML IV PRN ×2 (02:59→07:11)
[2020-04-07 04:58] VITALS: BP 108/61
[2020-04-07] MEDS: D5W/SOD CHL 0.45%/KCL 20MEQ 1,000 ML IV SCH ×2 (05:11→15:00)
[2020-04-07 05:36] LABS: Basophils # (auto) 0 10 ^3/uL (0-0.2); Basophils % (auto) 0.6 % (0.0-2.0); Eosinophils # (auto) 0.3 10 ^3/uL (0-0.8); Eosinophils % (auto) 3.8 % (0.0-7.0); Hematocrit 44.9 % (41.0-53.0); Hemoglobin 14.9 g/dL (13.5-17.5); Lymphocytes # (auto) 1.3 10 ^3/uL (0.4-5.4); Lymphocytes % (auto) 17.3 % (10.0-50.0); Mean Corpuscular Hemoglobin 28.8 pg (28.0-32.0); Mean Corpuscular Hgb Conc. 33.3 g/dL (32.0-36.0); Mean Corpuscular Volume 86.6 fL (80.0-100.0); Monocytes # (auto) 0.9 10 ^3/uL (0-1.3); Monocytes % (auto) 12.4 % (0.0-12.0); Neutrophils % (auto) 65.9 % (37.0-80.0); Platelet Count (auto) 184 10^3/uL (140-450); Red Blood Cells 5.18 10^6/uL (4.5-5.90); White Blood Cell 7.6 10^3/uL (4.4-10.8)
[2020-04-07 05:57] LABS: Calcium 8.5 mg/dL (8.5-10.1)
[2020-04-07 06:01] LABS: BUN/Creatinine Ratio 11.9
[2020-04-07] MEDS: SPIRONOLACTONE 25 MG TAB PO SCH (09:57)
[2020-04-07] MEDS: PANTOPRAZOLE 40 MG/10 ML VIAL INJ IV SCH (09:58)
[2020-04-07] MEDS: ATORVASTATIN 20 MG TAB PO SCH (09:58)
[2020-04-07] MEDS: RANOLAZINE ER 500 MG TAB PO SCH (09:58)
[2020-04-07] MEDS: CARVEDILOL 12.5 MG TAB PO SCH (09:59)
[2020-04-07] MEDS: LISINOPRIL 10 MG TAB PO SCH (09:59)
[2020-04-07] MEDS: DOCUSATE SOD 100 MG CAP PO SCH (10:00)
--- NOTE | 2020-04-07 10:00 | NUR ---
Patient refused colace, states he is having regular bowel movements.
[2020-04-07 10:40] VITALS: BP 96/60
--- NOTE | 2020-04-07 11:07 | NUR ---
PAGED RAMAN RE: DIET RAMAN STATED PATIENT CAN ADVANCE TO REGULAR TEXTURE, AND IS CLEAR FROM HIS STANDPOINT.
[2020-04-07 12:55] VITALS: BP 101/68
[2020-04-07 13:00] VITALS: BP 107/65
--- NOTE | 2020-04-07 15:15 | NUR ---
Patient given discharge instructions including post op incision care, diet, s/s of infection, medication education, post-op follow up. This nurse answered all patient questions, patient verbalized understanding of all education. Patient was given supplies to change dressing to post op site at home per Dr. Campos's instructions.
--- NOTE | 2020-04-07 15:27 | NUR ---
[facility]. still filling meds.
--- NOTE | 2020-04-07 15:50 | NUR ---
PATIENT MEDS ARRIVED, GIVEN TO PATIENT. NOW AWAITING PATIENTS TRANSPORT.
--- NOTE | 2020-04-07 16:18 | NUR ---
PATIENT RIDE HERE. ASSISTED DOWNSTAIRS WITH ALL BELONGINGS.
== END 2020-04-07 23:15 | disposition home or self-care (01) | DRG 228 ==
LOC: ER 10:37 → OVERFLOW 10:38 → WEST WING 13:24
PROVIDERS: ADMIT Nurse Practitioner Acute Care; ATTEND Internal Medicine
PROC: 0YQ60ZZ Repair Left Inguinal Region, Open Approach (ICD-10-PCS; principal; 2020-04-06 09:41)
DX: K40.90 Unilateral inguinal hernia, without obstruction or gangrene, not specified as recurrent (principal); I11.0 Hypertensive heart disease with heart failure; I50.22 Chronic systolic (congestive) heart failure; I42.0 Dilated cardiomyopathy; E78.5 Hyperlipidemia, unspecified; F12.10 Cannabis abuse, uncomplicated; I25.10 Atherosclerotic heart disease of native coronary artery without angina pectoris; F31.9 Bipolar disorder, unspecified; Z83.3 Family history of diabetes mellitus; Z90.49 Acquired absence of other specified parts of digestive tract
CPT/HCPCS: 36415; 71045; 74176; 80048; 80053; 80307; 81001; 83690; 83880; 84484; 85025; 85610; 85730; 87081; 88302; 93005; C9113; G0378; J0330; J0690; J2001; J2250; J3490

== ENCOUNTER 2025-06-13 17:20 | Inpatient (IN) | payer MEDICAID ==
[~2025-06-13] VITALS: Ht 175.3 cm; Wt 98.3 kg
[~2025-06-13 17:20] MED LIST changes: -LISI-648 PO; +LISI10TA34 PO; +POTA-36 PO; -POTA10TA51 PO
--- NOTE | 2025-06-13 17:28 | ECG ---
[facility] Test Date: 2025-06-13 Test Time: 17:27:11 Pat Name: FARA CRANDALL Department: [facility] ED Patient ID: [id number] Room: Gender: M Crimper Assembler: kassy : 1965 Requested By: JUSTICE SOLARES Order Number: [id number] Reading MD: Joe Henry Measurements Intervals [place] Rate: 88 P: 47 TN: 182 QRS: 128 QRSD: 129 T: -52 QT: 378 QTc: 458 Interpretive Statements Sinus rhythm Nonspecific intraventricular conduction delay Probable anteroseptal infarct, old Borderline ST depression, inferior leads Abnormal T, consider ischemia, diffuse leads Electronically Signed On 06-13-2025 22:13:02 PDT by Joe Henry Please click the below link to view image of tracing.
--- NOTE | 2025-06-13 18:35 | DVH ---
CHEST RADIOGRAPH Indication: chest pain Technique: Single frontal view of the chest was obtained Comparison: None FINDINGS: Lines and Tubes: None Lungs: No focal consolidation. 1.5 cm nodular density of the right medial mid to lower lung zone. Pleura: No effusion. No pneumothorax. Cardiomediastinal contours: Unremarkable. Midline sternotomy wires are noted. Bones: No acute osseous abnormality. 1.3 x 1.9 cm density overlying the midline lower cervical spine which may represent hardware. IMPRESSION: No acute cardiopulmonary disease. 1.5 cm nodular density of the right medial mid to lower lung zone which may represent portal vasculat ure with a pulmonary nodule not excluded. CT should be considered for further evaluation.
--- NOTE | 2025-06-13 19:49 | ED.PDOC ---
History of Present Illness HPI Comments 60-year-old male presents with chief complaint of substernal chest and left arm and jaw pain, breathing shortness of breath, lightheadedness, nausea, and vomiting. 2 hour history of symptoms following initial, sudden, unprovoked, and atraumatic onset, and while resting. Pain radiates from his sternum, diffusely, across his entire chest wall and onto his left arm. It is described as sharp and dull in quality in the 4/10 severity in his chest. Arm pain is described as sharp and stabbing in quality. Patient also reports chronic left tooth pain, which he reports on upcoming dental appointment, tomorrow morning. Significant history for CAD, systolic CHF, nonischemic, dilated cardiomyopathy with EF 20%, HLD, HTN, previous history of aortic aneurysms and multiple congenital open heart surgeries-including VSD, prediabetes, cholecystectomy, inguinal hernia repair, and marijuana use. He is taking ibuprofen, currently, following recent back surgery he had, earlier, this year. No further pertinent history reported, such as recent travel or injuries. Denies any palpitations, bloody or bilious vomitus, fever, chills, or further associated symptoms. REVIEW OF SYSTEMS: No fever, no chills, HEENT: Left tooth pain, No neck pain, no blurred vision Cardiac: chest pain. Lightheadedness. No palpitations. Lungs: shortness of breath, GI: No abdominal pain, positive nausea and vomiting. Musculoskeletal: Left arm pain. No joint pain , no back pain Skin: No rash, no wound Neuro: No headache, no dizziness, no syncope PHYSICAL EXAM: General: Awake, alert and oriented. No acute distress. Skin: Skin in warm, dry and intact without rashes or lesions. HEENT: The head is normocephalic and atraumatic. Conjunctivae are clear without exudates or hemorrhage. Sclera is non-icteric. Left upper gums are tender and swollen. Neck: Normal range of motion. No JVD. Cardiac: Regular rate Respiratory: No signs of respiratory distress. No Stridor. Extremities: Upper and lower extremities are atraumatic in appearance without deformity. Neurological: The patient is awake, alert and oriented to person, place, and time with normal speech. Speech is clear. There is no facial asymmetry. Normal gait. Psychiatric: Appropriate mood and affect. Good judgement and insight. Chief Complaint: Chest Pain Time Seen by MD: 18:20 Primary Care Provider: NONE Reviewed Notes: Nurses Notes, Medications, Allergies Allergies: Coded Allergies: Quetiapine (Verified Allergy, Unknown, 01/02/19) Home Meds Active Scripts Ranolazine (Ranexa) 500 Mg Tab, 500 MG PO BID, #60 TAB Prov:ТАТЬЯНА PLATA MD 03/10/20 Reported Medications Lisinopril (Lisinopril) 10 Mg Tab, 10 MG PO DAILY, TAB 03/16/20 Carvedilol (Carvedilol) 12.5 Mg Tab, 12.5 MG PO BID, TAB 03/16/20 Spironolactone (Spironolactone) 25 Mg Tab, 25 MG PO BID, TAB 03/16/20 Potassium Chloride (POTASSIUM CHLORIDE CR) 10 Meq Tb, 1 TAB PO DAILY, #30 TAB 5 Refills 03/16/20 Furosemide (Furosemide) 40 Mg Tab, 1 TAB PO DAILY, #30 TAB 5 Refills 03/16/20 Nitroglycerin (NTROSTAT SUBLINGUAL) 0.4 Mg Sl, 0.4 MG SL PRN, TAB *MAY REPEAT EVERY 5 MINUTES X 3 TOTAL IF NO RELIEF, INITIATE ANALGESIC THERAPY. NOTIFY PHYSICIAN *Do not crush. 02/03/20 Aspirin (Aspir-Low) 81 Mg Tab, 81 MG PO DAILY for 30 Days, MG 02/03/20 Atorvastatin Calcium (Lipitor) 20 Mg Tab, 1 TAB PO DAILY, #90 TAB 1 Refill 02/03/20 Information Source: Patient Mode of Arrival: Ambulatory Severity: Moderate Timing: Hours Duration: Since onset Prehospital treatment: None Past Medical History PAST MEDICAL HISTORY: CAD, CHF (With dilated nonischemic cardiomyopathy, systolic failure with EF of 20%), High Lipids, HTN Past Medical History (Other): 2x previous aortic aneurysms Prediabetes Bipolar disorder Surgical History: Cholecystectomy, Hernia Repair (Great toe) Surgical History (Other): Multiple congenital open heart surgeries including VSD Family History Family History: Family hx of DM Social History Smoker: Non-Smoker Alcohol: Rarely Drugs: Marijuana Lives In: Home Was a procedure done? Was a procedure done?: No EKG EKG #1: Pulse Rate (adult): 88 [place]: Normal Cardiac Rhythm: NSR Block: None Hypertrophy: None ST: Normal Comments ST depressions in leads II, III, and LVF No STEMI EKG #2: Pulse Rate (adult): 93 [place]: Normal Cardiac Rhythm: NSR Block: None Hypertrophy: None Comments ST depressions in leads II, III, and LVF No STEMI QRSD of 125 QT of 364 QTC of 453 Differential Dx Considerations may include: Differential diagnoses considered include acute ischemic coronary syndrome, aortic dissection, cardiac tamponade, mediastinitis, pulmonary embolus, pneumothorax, tension pneumothorax, esophageal rupture, coronary artery vasospasm, myocarditis, pericarditis, pneumonia, pulmonary edema, esophageal tear, pancreatitis, aortic stenosis, dilated cardiomyopathy, hypertrophic cardiomyopathy, mitral valve prolapse, malignancy, pleuritis, pneumomediastinum, primary pulmonary hypertension, cholecystitis, esophageal spasm, esophagus, gastritis, GERD, peptic ulcer disease, costochondritis, fibromyalgia, rib fracture, herpes zoster, radicular syndromes, thoracic outlet syndrome, somatization. X-Ray, Labs, Meds, VS Vital Signs Date Time Temp Pulse Resp B/P (MAP) Pulse Ox O2 Delivery O2 Flow Rate FiO2 06/14/25 01:33 92 20 97 Room Air 06/14/25 01:33 98.2 92 22 127/80 (96) 97 98.2 06/13/25 22:10 93 06/13/25 21:47 98.2 97 22 138/67 (90) 97 98.2 06/13/25 20:42 92 06/13/25 19:49 88 06/13/25 19:32 93 06/13/25 18:31 98 06/13/25 17:27 98.1 95 15 153/71 100 98.1 06/13/25 17:27 88 Lab Test 06/13/25 21:08 06/13/25 19:42 06/13/25 18:42 Range/Units Troponin I High Sensitivity 8 6 8 </=54 ng/L White Blood Count 13.9 H 4.4-10.8 10^3/uL Red Blood Count 5.45 4.5-5.90 10^6/uL Hemoglobin 17.4 13.5-17.5 g/dL Hematocrit 50.3 41.0-53.0 % Mean Corpuscular Volume 92.3 80.0-100.0 fL Mean Corpuscular Hemoglobin 31.9 28.0-32.0 pg Mean Corpuscular Hemoglobin Concent 34.6 32.0-36.0 g/dL Red Cell Distribution Width 15.0 H 11.8-14.3 % Platelet Count 236 140-450 10^3/uL Mean Platelet Volume 7.7 6.9-10.8 fL Neutrophils (%) (Auto) 81.2 H 37.0-80.0 % Lymphocytes (%) (Auto) 9.7 L 10.0-50.0 % Monocytes (%) (Auto) 8.2 0.0-12.0 % Eosinophils (%) (Auto) 0.6 0.0-7.0 % Basophils (%) (Auto) 0.3 0.0-2.0 % Neutrophils # (Auto) 11.3 H 1.6-8.6 10 ^3/uL Lymphocytes # (Auto) 1.4 0.4-5.4 10 ^3/uL Monocytes # (Auto) 1.1 0-1.3 10 ^3/uL Eosinophils # (Auto) 0.1 0-0.8 10 ^3/uL Basophils # (Auto) 0 0-0.2 10 ^3/uL Nucleated Red Blood Cells 0.1 % Sodium Level 144 136-145 mmol/L Potassium Level 4.2 3.5-5.1 mmol/L Chloride Level 109 H 98-107 mmol/L Carbon Dioxide Level 26 20-31 mmol/L Anion Gap 9 5-15 Blood Urea Nitrogen 17 9-23 mg/dL Creatinine 1.17 0.700-1.30 mg/dL Glomerular Filtration Rate Calc 72 >90 mL/min BUN/Creatinine Ratio 14.5 10.0-20.0 Serum Glucose 104 74-106 mg/dL Calcium Level 9.8 8.7-10.4 mg/dL Current Medications Medications (Trade) Dose Ordered Sig/Pantera Route Start Time Stop Time Status Last Admin Acetaminophen (Tylenol Tablet Or Capsule) 1,000 mg ONCE ONCE PO 06/13/25 22:15 06/13/25 22:16 DC 06/14/25 00:[address] [address] Ph: [phone] DIAGNOSTIC IMAGING Diagnostic Imaging Report : [id number] Signed PATIENT: FARA CRANDALL ACCT: [id number] UNIT: [id number] : 1965 LOC: ER ROOM / BED: / AGE / SEX: 60 / M ADM STATUS: REG ER SERVICE 06 ORDERING PHYSICIAN: VENUS HENRY MD PROCEDURE(s): CXR1 - CHEST XRAY 1 VIEW REASON: chest pain ORDER NUMBER(s): [id number], ACCESSION NUMBER(s): [id number] CHEST RADIOGRAPH Indication: chest pain Technique: Single frontal view of the chest was obtained Comparison: None FINDINGS: Lines and Tubes: None Lungs: No focal consolidation. 1.5 cm nodular density of the right medial mid to lower lung zone. Pleura: No effusion. No pneumothorax. Cardiomediastinal contours: Unremarkable. Midline sternotomy wires are noted. Bones: No acute osseous abnormality. 1.3 x 1.9 cm density overlying the midline lower cervical spine which may represent hardware. IMPRESSION: No acute cardiopulmonary disease. 1.5 cm nodular density of the right medial mid to lower lung zone which may represent portal vasculature with a pulmonary nodule not excluded. CT should be considered for further evaluation. ATED BY: AMANDA DWYER DO DICTATED DATE/TIME: 06/13/251831 SIGNED BY: AMANDA DWYER DO SIGNED DATE/TIME: 06/13/251831 CC: Time of 1ST Reevaluation: 18:50 Reevaluation 1ST: Unchanged Patient Education/Counseling: Treatment, Other (Need for admission) Family Education/Counseling: No Family Present SEPSIS Sepsis Screen Date sepsis recognized/suspect: Jun 13, 2025 Time Sepsis recognized/suspect: 9 Recent Procedure: No On Antibiotic Therapy: No Respiratory Rate >20: No Heart Rate >90: No Temp<36 C (96.8 F) or >38.3 C: No SBP <90 or MAP <65 mmHG: No New Acute Mental Status Change: No Is the patient on CPAP, BIPAP,: No Physician Orders Electrocardigram (06/13/25 17:26) Electrocardigram (06/13/25 18:26) Electrocardigram (06/13/25 20:26) Chest Xray 1 View (06/13/25 18:07) Saline Lock (06/13/25 22:07) Utility Teller (06/13/25 ) Vital Signs Date Time Temp Pulse Resp B/P (MAP) Pulse Ox O2 Delivery O2 Flow Rate FiO2 06/14/25 01:33 92 20 97 Room Air 06/14/25 01:33 98.2 92 22 127/80 (96) 97 98.2 06/13/25 22:10 93 06/13/25 21:47 98.2 97 22 138/67 (90) 97 98.2 06/13/25 20:42 92 06/13/25 19:49 88 06/13/25 19:32 93 06/13/25 18:31 98 06/13/25 17:27 98.1 95 15 153/71 100 98.1 06/13/25 17:27 88 Laboratory Tests Test 06/13/25 18:42 White Blood Count 13.9 10^3/uL (4.4-10.8) H Medications Medications Dose Ordered Sig/Pantera Route Start Time Stop Time Status Last Admin Dose Admin Acetaminophen 1,000 mg ONCE ONCE PO 06/13/25 22:15 06/13/25 22:16 DC 06/14/25 00:36 Departure 1 Departure Time of Disposition: 22:08 Impression: Primary Impression: Chest pain Additional Impression: Pain, dental Disposition: 09 ADMITTED INPATIENT Condition: Stable Comments MDM: 60-year-old male with multiple cardiac risk factors presents with chest pain Initial EKG and troponin negative for STEMI/ACS Patient admitted to hospitalist service for further treatment, evaluation and monitoring. Extensive evaluation was performed in attempt to identify or rule out: (See differential diagnosis section) The following tests were ordered, and results were reviewed by me and discussed with patient: (See diagnostic results section) The following test were independently interpreted by me: EKG I reviewed and agreed with the following test results read by other providers: . chest x-ray I reviewed the following notes from the pt's past medical encounters: February 02, 2020, March 08, 2020, March 15, 2020, March 28, 2020, and April 04, 2020 encounters for acute systolic congestive heart failure, chest pain, acute abdominal pain, abdominal pain, and inguinal hernia, respectively Additional information was gathered from interviewing the following independent historians: N/A Discussion of management or test interpretation with external physician/other qualified health lawn care technician: N/A Decision regarding hospitalization or escalation of hospital level of care: Risk and benefits of admission for further treatment of patient's condition was considered. Due to patient's current clinical condition, high risk of decline and poor outcome if discharged and need for further inpatient management and monitoring, patient will be admitted to the hospital. Critical Care Note Critical Care Time?: No Stability Stability form required: No Heart Score Heart Score: Heart Score Response (Comments) Value History Moderate Suspicious 1 EKG Normal 0 Age 45-64 1 Risk Factors >3 or Hx ASHD 2 Troponin Normal limit 0 Total 4 I personally scribed for VENUS HENRY MD ([email or web address]) on 06/13/25 at 19:49. Electronically submitted by Zurdo Mendoza ([email or web address]). I personally scribed for VENUS HENRY MD ([email or web address]) on 06/13/25 at 20:40. Electronically submitted by Zurdo Mendoza ([email or web address]). I personally scribed for VENUS HENRY MD ([email or web address]) on 06/13/25 at 20:42. Electronically submitted by Zurdo Mendoza ([email or web address]). I personally scribed for VENUS HENRY MD ([email or web address]) on 06/13/25 at 22:10. Electronically submitted by Zurdo Mendoza ([email or web address]). VENUS HENRY MD Jun 13, 2025 19:49
--- NOTE | 2025-06-13 20:33 | ECG ---
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
--- NOTE | 2025-06-13 20:33 | ECG ---
[facility] Test Date: 2025-06-13 Test Time: 18:31:35 Pat Name: FARA CRANDALL Department: [facility] ED Patient ID: [id number] Room: Gender: M Cloth Painter: kassy : 1965 Requested By: JUSTICE SOLARES Order Number: [id number] Reading MD: Joe Henry Measurements Intervals [place] Rate: 98 P: 57 AL: 174 QRS: 124 QRSD: 121 T: -60 QT: 349 QTc: 446 Interpretive Statements Sinus rhythm Nonspecific intraventricular conduction delay Borderline ST depression, inferior leads Abnormal T, consider ischemia, diffuse leads Electronically Signed On 06-13-2025 22:13:12 PDT by Joe Henry Please click the below link to view image of tracing.
[2025-06-13 21:20] LABS: Hematocrit 50.3 % (41.0-53.0); Hemoglobin 17.4 g/dL (13.5-17.5); Mean Corpuscular Hemoglobin 31.9 pg (28.0-32.0); Mean Corpuscular Volume 92.3 fL (80.0-100.0); Nucleated Red Blood Cells % 0.1 %
[2025-06-13 21:24] LABS: Potassium 4.2 mmol/L (3.5-5.1); Sodium 144 mmol/L (136-145)
[2025-06-13 21:25] LABS: Anion Gap 9 (5-15); Carbon Dioxide 26 mmol/L (20-31)
[2025-06-13 21:26] LABS: Calcium 9.8 mg/dL (8.7-10.4)
[2025-06-13 21:30] LABS: Glucose 104 mg/dL (74-106)
[2025-06-13 21:31] LABS: BUN/Creatinine Ratio 14.5 (10.0-20.0); Blood Urea Nitrogen 17 mg/dL (9-23)
[2025-06-13 21:34] LABS: Chloride 109 mmol/L (98-107)
[2025-06-14] VITALS (8 sets, daily range): BP systolic 100–147; BP diastolic 49–73; PULSE 70–86; RESP 14–18; TEMP 97.5–98.5; O2SAT 95–99
[2025-06-14] MEDS: ACETAMINOPHEN 500 MG TAB or CAP PO ONE (00:36)
[2025-06-14] MEDS ORDERED: NITROGLYCERIN 0.4 MG SL TAB SL PRN (01:45)
--- NOTE | 2025-06-14 02:37 | DVHHPRES ---
History of Present Illness Resident Creating Document: RANI COBIAN RESIDENT History of Present Illness 60-year-old male presents with history of CHF, aortic aneurysm repair, prediabetes, hypertension to the ER with chest tightness and pain in his jaw and left arm since this morning. He denies any shortness of breath, fever, abdo dorie pain or any other complaints today. Past medical history: Prediabetes, hypertension, congestive heart failure Past surgical history: VSD repair during childhood, aortic aneurysm repair, inguinal hernia repair surgery, knee and shoulder surgery, cholecystectomy Smoking history: Smoked from [age] years age, sober for 5 years Alcohol history: History drink 18 pegs within 3 days, quit 5 years ago Drug abuse: Active methamphetamine use for 25 years, HR achieved drug cessation since last 5 years. Actively uses marijuana. PCP: Dr. Vargas Home medications: Carvedilol, Lipitor, isosorbide nitrate Lives with family Allergies: Quetiapine(Seroquel) Code status: Patient wants to discuss with Review of Systems Allergies: Coded Allergies: Quetiapine (Verified Allergy, Unknown, 01/02/19) Medications Current Medications Medications Dose Ordered Sig/Panetra Route Start Time Stop Time Status Last Admin Dose Admin Sodium Chloride 10 ml Q8HR IV 06/14/25 06:00 Ondansetron HCl 4 mg Q4HP PRN IV 06/14/25 01:45 Enoxaparin Sodium 40 mg DAILY SC 06/14/25 10:00 Nitroglycerin 0.4 mg Q5MINP PRN SL 06/14/25 01:45 Morphine Sulfate 2 mg Q30M PRN IV 06/14/25 01:45 Exam Vital Signs Vital Signs Date Time Temp Pulse Resp B/P (MAP) Pulse Ox O2 Delivery O2 Flow Rate FiO2 06/14/25 01:33 98.2 92 22 127/80 (96) 97 98.2 Exam Pt is lying on bed General Appearance: Alert, Oriented X3, Cooperative, Mild distress HEENT: Atraumatic, Mucous membranes moist/pink Respiratory: Clear to auscultation, Normal air movement, No added sounds Cardiovascular: Regular rate, Normal S1, Normal S2, No murmurs Abdominal/ : Active bowel sounds, Soft, no distention, no tenderness Extremities: No edema, Normal pulses, No tenderness/swelling Skin: No Significant rash, except past surgical scars Neuro: Normal speech, sensorimotor deficits none Psych/Mental Status: Mental status NL, Mood NL Nurse was there as guest services attendant during examination Labs/Xrays Labs Test 06/13/25 21:08 06/13/25 18:42 Range/Units Troponin I High Sensitivity 8 </=54 ng/L White Blood Count 13.9 H 4.4-10.8 10^3/uL Red Blood Count 5.45 4.5-5.90 10^6/uL Hemoglobin 17.4 13.5-17.5 g/dL Hematocrit 50.3 41.0-53.0 % Mean Corpuscular Volume 92.3 80.0-100.0 fL Mean Corpuscular Hemoglobin 31.9 28.0-32.0 pg Mean Corpuscular Hemoglobin Concent 34.6 32.0-36.0 g/dL Red Cell Distribution Width 15.0 H 11.8-14.3 % Platelet Count 236 140-450 10^3/uL Mean Platelet Volume 7.7 6.9-10.8 fL Neutrophils (%) (Auto) 81.2 H 37.0-80.0 % Lymphocytes (%) (Auto) 9.7 L 10.0-50.0 % Monocytes (%) (Auto) 8.2 0.0-12.0 % Eosinophils (%) (Auto) 0.6 0.0-7.0 % Basophils (%) (Auto) 0.3 0.0-2.0 % Neutrophils # (Auto) 11.3 H 1.6-8.6 10 ^3/uL Lymphocytes # (Auto) 1.4 0.4-5.4 10 ^3/uL Monocytes # (Auto) 1.1 0-1.3 10 ^3/uL Eosinophils # (Auto) 0.1 0-0.8 10 ^3/uL Basophils # (Auto) 0 0-0.2 10 ^3/uL Nucleated Red Blood Cells 0.1 % Sodium Level 144 136-145 mmol/L Potassium Level 4.2 3.5-5.1 mmol/L Chloride Level 109 H 98-107 mmol/L Carbon Dioxide Level 26 20-31 mmol/L Anion Gap 9 5-15 Blood Urea Nitrogen 17 9-23 mg/dL Creatinine 1.17 0.700-1.30 mg/dL Glomerular Filtration Rate Calc 72 >90 mL/min BUN/Creatinine Ratio 14.5 10.0-20.0 Serum Glucose 104 74-106 mg/dL Calcium Level 9.8 8.7-10.4 mg/dL SEPSIS Sepsis Screen Date sepsis recognized/suspect: Jun 13, 2025 Time Sepsis recognized/suspect: 1728 Recent Procedure: No On Antibiotic Therapy: No Respiratory Rate >20: No Heart Rate >90: No Temp<36 C (96.8 F) or >38.3 C: No SBP <90 or MAP <65 mmHG: No New Acute Mental Status Change: No Is the patient on CPAP, BIPAP,: No Physician Orders Saline Lock (06/13/25 22:07) Paraffiner (06/13/25 ) Admit (06/14/25 01:43) Allergies (06/14/25:43) Code Status (06/14/25:43) Sodium Chloride Lock (Saline Lock Ns) (06/14/25 06:00) Oxygen Per Hour (06/14/25 01:43) Ondansetron Hcl (Zofran) (06/14/25 01:45) Enoxaparin Sodium (Lovenox) (06/14/25 10:00) Complete Blood Count (06/15/25 04:00) Comprehensive Metabolic Panel (06/15/25 04:00) Nitroglycerin Sublingual (Ntrostat Subli (06/14/25 01:45) Morphine Sulfate Injection (06/14/25 01:45) Oxygen By Nasal Cannula (06/14/25 01:43) Stat Ekg For Chest Pain (06/14/25 01:43) Notify Md Of Changes From Base (06/14/25 01:43) Drug And Alcohol Counselor For 24 Hours (06/14/25 01:43) Emergency Dysrhythmia Protocol (06/14/25 01:43) Rhythm Strips Once Every Shift (06/14/25 01:43) Vital Signs Date Time Temp Pulse Resp B/P (MAP) Pulse Ox O2 Delivery O2 Flow Rate FiO2 06/14/25 01:33 98.2 92 22 127/80 (96) 97 98.2 06/13/25 22:10 93 06/13/25 21:47 98.2 97 22 138/67 (90) 97 98.2 06/13/25 20:42 92 06/13/25 19:49 88 06/13/25 19:32 93 06/13/25 18:31 98 Laboratory Tests Test 06/13/25 18:42 White Blood Count 13.9 10^3/uL (4.4-10.8) H Medications Medications Dose Ordered Sig/Pantera Route Start Time Stop Time Status Last Admin Dose Admin Acetaminophen 1,000 mg ONCE ONCE PO 06/13/25 22:15 06/13/25 22:16 DC 06/14/25 00:36 1,000 MG Assessment/Plan Assessment/Plan Chest pain rule out ACS History of CHF EKG: Sinus rhythm Nonspecific intraventricular conduction delay Borderline ST depression, inferior leads Abnormal T, consider ischemia, diffuse leads -troponin I 8 -morphine -Nitroglycerin -Oxygen -cardiology consult -continue carvedilol Hyperlipidemia: Continue Lipitor GI prophylaxis: Pantoprazole DVT prophylaxis: Not indicated Diet: Cardiac Goals of care discussed with the patient for more than 27 minutes: Full code status Case discussed with , patient and RN Plan discussed with: Patient, Other (RN) My Orders Orders - MANGO,RANI RESIDENT Procedure Category Date Status Time Admit ADMIT 06/14/25 Transmitted 01:43 Allergies KAMILA 06/14/25 In Process 01:43 Code Status CODE 06/14/25 Transmitted 01:43 Sodium Chloride Lock PHA 06/14/25 In Process (Saline Lock Ns) 06:00 Oxygen Per Hour RT 06/14/25 Transmitted 01:43 Ondansetron Hcl PHA 06/14/25 In Process (Zofran) 01:45 Enoxaparin Sodium PHA 06/14/25 In Process (Lovenox) 10:00 Complete Blood Count LAB 06/15/25 Verified 04:00 Comprehensive LAB 06/15/25 Verified Metabolic Panel 04:00 Nitroglycerin PHA 06/14/25 In Process Sublingual (Ntrostat 01:45 Morphine Sulfate PHA 06/14/25 In Process Injection 01:45 Oxygen By Nasal RT 06/14/25 Transmitted Cannula 01:43 Stat Ekg For Chest KAMILA 06/14/25 In Process Pain 01:43 Notify Of Changes KAMILA 06/14/25 In Process From Base 01:43 Drug And Alcohol Counselor For KAMILA 06/14/25 In Process 24 Hours 01:43 Emergency Dysrhythmia [facility] 06/14/25 In Process Protocol 01:43 Rhythm Strips Once [facility] 06/14/25 In Process Every Shift 01:43 Date of Service: Jun 14, 2025 Billing Provider: JOSEFINA VERGARA MD Common Visit Codes: [id number] INP/OBS CARE (HIGH) RANI COBIAN RESIDENT Jun 14, 2025 02:37 JOSEFINA VERGARA MD Jun 17, 2025 16:11
[2025-06-14] MEDS: PENICILLIN V POTASSIUM 250 MG TAB PO ONE (02:55)
[2025-06-14] MEDS ORDERED: MELO7.5T7 PO (05:36)
[2025-06-14] MEDS ORDERED: ISOS5TAB PO (05:36)
[2025-06-14] MEDS ORDERED: SACU1TAB7 PO (05:36)
[2025-06-14] MEDS ORDERED: CYCL-838 PO (05:36)
[2025-06-14] MEDS ORDERED: NORT25CA GT (05:36)
[2025-06-14] MEDS ORDERED: LAMO100T44 PO (05:38)
[2025-06-14] MEDS ORDERED: FLUO60TA7 PO (05:38)
[2025-06-14] MEDS: SODIUM CHLOR 0.9% PF (SALINE LOCK) 10ML VIAL/SYR IV SCH (05:40)
[2025-06-14] MEDS: PANTOPRAZOLE 40 MG/10 ML VIAL INJ IV SCH (10:00)
[2025-06-14] MEDS ORDERED: LISINOPRIL 5 MG TAB PO SCH (10:00)
--- NOTE | 2025-06-14 10:09 | DVHPNRES ---
Progress Note Date Seen: Jun 14, 2025 Resident Creating Document: ARACELY BREAUX Medical Necessity Reason Pt with a Central, PICC or Fol: No (RN) Subjective Review of Systems Patient is a [id number] male with past medical history of CHF, aortic aneurysm repair, prediabetes, hypertension who came to ED for chest pain. Patient reports having had left upper wisdom tooth partial extracted about 3 weeks ago. Since then, he has been starting left-sided facial pain and yesterday, he started experiencing sharp, stabbing band-like chest pain, begins from the left side of the face, radiates to the left neck, left chest, left arm and left hand fingers. He denies any shortness of breath, fever, abdominal pain or any other complaints today. 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 Actively uses marijuana. PCP: Dr. Vragas Home medications: Carvedilol, Lipitor, isosorbide nitrate Lives with family Allergies: Quetiapine(Seroquel) Code status: Patient wants to discuss with Patient seen and examined at bedside. Patient is alert and oriented to time, place person and responding to all questions. Eyes: No Pain, No Vision change, No Conjunctivae inflammation, No Eyelid inflammation, No Other, No Redness ENT: Left Ear pain, Left facial pain, No Ear discharge, No Nose pain, No Nose discharge, No Nose congestion, No Mouth pain, No Mouth swelling, No Throat pain, No Throat swelling, No Other Cardiovascular: Chest Pain, No Palpitations, No Orthopnea, No Paroxysmal No Dyspnea, No Edema, No Lt Headedness, No Other Respiratory: No Cough, No Dry, No Shortness of breath, No SOB with exertion, No Wheezing, No Hemoptysis, No Pleuritic Pain, No Sputum, No Other Gastrointestinal: Nausea, Vomiting, No Abdominal Pain, No Diarrhea, No Constipation, No Melena, No Hematochezia, No Other Genitourinary: No Dysuria, No Frequency, No Incontinence, No Hematuria, No Retention, No Other Musculoskeletal: Neck pain, Left arm pain, No other, No shoulder pain, No arm pain, No back pain, No hand pain, No leg pain, No foot pain Skin: No Rash, No Lesions, No Jaundice, No Bruising, No Other Objective vital signs Vital Sign Date Time Temp Pulse Resp B/P (MAP) Pulse Ox O2 Delivery O2 Flow Rate FiO2 06/14/25 08:48 98.3 86 18 100/68 (79) 99 98.3 06/14/25 03:56 Room Air* 0 21 Total Intake and Output 06/13/25 06/13/25 06/14/25 15:00 23:00 07:00 Intake Total 118 ml Balance 118 ml medications Current Medications Medications Dose Ordered Sig/Pantera Route Start Time Stop Time Status Last Admin Dose Admin Sodium Chloride 10 ml Q8HR IV 06/14/25 06:00 06/14/25 05:40 10 ML Ondansetron HCl 4 mg Q4HP PRN IV 06/14/25 01:45 Enoxaparin Sodium 40 mg DAILY SC 06/14/25 10:00 Nitroglycerin 0.4 mg Q5MINP PRN SL 06/14/25 01:45 Morphine Sulfate 2 mg Q30M PRN IV 06/14/25 01:45 Aspirin 81 mg DAILY PO 06/14/25 10:00 Atorvastatin Calcium 20 mg DAILY PO 06/14/25 10:00 Carvedilol 6.25 mg DAILY PO 06/14/25 10:00 Lamotrigine 100 mg DAILY PO 06/14/25 10:00 Spironolactone 25 mg BID PO 06/14/25 10:00 Isosorbide Dinitrate 5 mg BID PO 06/14/25 10:00 Sacubitril/ Valsartan 2 tab BID PO 06/14/25 10:00 Pantoprazole Sodium 40 mg DAILY IV 06/14/25 10:00 Examination General Appearance: Alert, Oriented X3, Cooperative, Mild distress HEENT: Atraumatic, Mucous membranes moist/pink Respiratory: Clear to auscultation, Normal air movement, No added sounds Cardiovascular: Holosystolic murmur, Regular rate, Normal S1, Normal S2 Abdominal/ : Active bowel sounds, Soft, no distention, no tenderness Extremities: No edema, Normal pulses, No tenderness/swelling Skin: No Significant rash, except past surgical scars Neuro: Normal speech, sensorimotor deficits none Psych/Mental Status: Mental status NL, Mood NL laboratory and microbiology Laboratory Tests 06/13/25 18:42 Test 06/13/25 18:42 Range/Units Serum Glucose 104 74-106 mg/dL Labs and/or images reviewed: Labs reviewed by me, Image(s) reviewed by me Problem List/Assessment/Plan Problem List/Assessment/Plan # Chest pain rule out ACS # possible acute on chronic systolic heart failure - EKG done- sinus rhythm. No specific intraventricular conduction delay. Borderline ST depression, inferior leads. Abnormal T, consider ischemia, diffuse leads. - Troponin negative - Morphine and nitroglycerin as needed for chest pain - on GDM T, continue Sacubitril-Valsartan, Carvedilol, Spironolactone - Isosorbide dinitrate - Aspirin 81 mg, Atorvastatin - cardiology consulted # 1.5 cm lung nodule seen on chest x-ray - ordered chest CT: No focal consolidation. No suspicious pulmonary nodule. # Small left upper molar periapical abscess with a cavity # nausea and vomiting due to suspected infection -Maxillofacial CT- Small left upper molar periapical abscess with a cavity. Small left upper molar periapical abscess with a cavity. The facial bones, including the orbits and paranasal sinuses are intact without evidence of fracture. The paranasal sinuses, mastoid air cells and middle ear cavities are well aerated. The orbital contents are normal. The soft tissues of the face are unremarkable. -Clindamycin 300 MG IV q8hr -Ketorolac 15 mg IV once - IV Zofran as needed # history of questionable seizures - resumed home medication lamotrigine # prediabetes, A1c 5.9 - monitor Cardiac diet PUD prophylaxis: protonix 40mg DVT prophylaxis: Levonox 40mg Goals of care: Full code, discussed for >16 minutes on 06/14/25 Plan discussed with patient Plan discussed with Dr. Bateman. Plan discussed with: Patient, Other (RN) My Orders My Orders Orders - ARACELY BREAUX Procedure Category Date Status Time Echo 2d Mode Cardiac US 06/14/25 Logged DOP 08:11 Date of Service: Jun 14, 2025 Billing Provider: GEORGES BATEMAN MD Common Visit Codes: [id number] INP/OBS CARE(HIGH) Secondary Visit Codes: [id number] CARE PLAN 30 MINUTES ARACELY BREAUX RESIDENT Jun 14, 2025 10:09 KONSTANTIN KING RESIDENT Jun 14, 2025 16:16 GEORGES BATEMAN MD Jun 19, 2025 20:58
[2025-06-14] MEDS: ASPirin-EC 81 mg tab PO SCH (10:28)
[2025-06-14] MEDS: CARVEDILOL 12.5 MG TAB PO SCH (10:28)
[2025-06-14] MEDS: ATORVASTATIN 20 MG TAB PO SCH (10:29)
[2025-06-14] MEDS: SACUBITRIL-VALSARTAN 24mg/26mg TAB PO SCH (10:29)
[2025-06-14] MEDS: ISOSORBIDE DINITRATE 10 MG TAB PO SCH (10:29)
[2025-06-14] MEDS: lamoTRIgine 100 MG TAB PO SCH (10:29)
[2025-06-14] MEDS: ENOXAPARIN SOD 40 MG/0.4 ML SYRINGE SC SCH (10:30)
[2025-06-14] MEDS: SPIRONOLACTONE 25 MG TAB PO SCH (10:30)
[2025-06-14] MEDS: ONDANSETRON HCL 4 MG/2 ML VIAL IV PRN (12:57)
[2025-06-14] MEDS: KETOROLAC TROMETH 30 MG/ML 1ML VIAL IV ONE ×2 (12:59→21:24)
[2025-06-14] MEDS ORDERED: CLINDAMYCIN 300MG IV 50 ML IV SCH (14:00)
[2025-06-14 14:02] LABS: Hematocrit 44.4 % (41.0-53.0); Hemoglobin 15.2 g/dL (13.5-17.5); Mean Corpuscular Hemoglobin 31.5 pg (28.0-32.0); Mean Corpuscular Volume 92.3 fL (80.0-100.0); Nucleated Red Blood Cells % 0.1 %
--- NOTE | 2025-06-14 14:15 | DVH ---
CT MAXILLOFACIAL WITHOUT INDICATION: left upper molar dental abcess EXAM DATE: 06/14/2025 12:40 PM COMPARISON: None RADIATION DOSE: CTDIvol: 66.95 mGy, DLP: 2576.41 mGy*cm PROCEDURE: Using the CT scanner, contiguous noncontrast scans were obtained from above the orbital ri ms to below the mandible. Coronal and sagittal reformatted images were then generated. All CT scans at this medical facility are performed using dose modulation techniques as appropriate t o a performed exam including the following: Automated exposure control was utilized; adjustment of th e MA and/or KV according to patient size; and use of iterative reconstruction technique. FINDINGS: Small left upper molar periapical abscess with a cavity. The facial bones, including the or bits and paranasal sinuses are intact without evidence of fracture. The paranasal sinuses, mastoid ai r cells and middle ear cavities are well aerated. The orbital contents are normal. The soft tissues o f the face are unremarkable. IMPRESSION: Small left upper molar periapical abscess with a cavity.
[2025-06-14 14:21] LABS: Alanine Aminotransferase 23 U/L (7-40); Albumin 4.4 g/dL (3.2-4.8); Alkaline Phosphatase 83 U/L (46-116); Anion Gap 9 (5-15); BUN/Creatinine Ratio 19.8 (10.0-20.0); Bilirubin, Total 1.2 mg/dL (0.2-1.0); Blood Urea Nitrogen 21 mg/dL (9-23); Calcium 9.1 mg/dL (8.7-10.4); Carbon Dioxide 24 mmol/L (20-31); Chloride 107 mmol/L (98-107); Potassium 3.7 mmol/L (3.5-5.1); Sodium 140 mmol/L (136-145); Total Protein 6.9 g/dL (5.7-8.2)
[2025-06-14 14:22] LABS: Glucose 128 mg/dL (74-106)
--- NOTE | 2025-06-14 14:27 | DVH ---
Procedure: CT CHEST WITHOUT CONTRAST Reason for study/Clinical History: 1.5cm right lung nodule Comparison Study: XY CHEST XRAY 1 VIEW on DOS: 06/13/25 TECHNIQUE: Multidetector CT of the chest was performed from the lung apices to the upper abdomen with out the use of intravenous contract. Axial, coronal and sagittal multiplanar reformats were performed . Radiation Dose Information: CT Dose: CTDI volume is 28.2 mGy. Dose-length product is 2576.4 mGy*cm The dose indicators for CT are the volume Computed Tomography (CT) Dose Index (CTDIvol) and the Dose Length Product (DLP), and are measured in units of mGy and mGy-cm, respectively. These indicators are not patient dose, but values generated from the CT scanner acquisition factors. The report includes radiation exposure data for exposures received during this examination. FINDINGS: Lower neck: Unremarkable. Lungs: No focal consolidation. No suspicious pulmonary nodule. Heart/Vascular Structures: Cardiomegaly. Coronary artery calcifications. Vascular calcifications of t he aorta. Lymph Nodes: No adenopathy Pleura: No pleural effusion or significant pneumothorax. Musculoskeletal: No acute osseous abnormality. Median sternotomy. Soft tissues: Normal. Upper abdomen: 0.2 cm nonobstructing stone in the right midpole kidney. IMPRESSION: No acute intrathoracic abnormality. Radiation optimization: All CT scans at this facility use at least one of these dose optimization bonny hniques: automated exposure control mA and/or kV adjustment per patient size (includes targeted exam s where dose is matched to clinical indication) or iterative reconstruction.
[2025-06-14] MEDS: CLINDAMYCIN 600MG IV 50 ML IV ONE (14:33)
--- NOTE | 2025-06-14 20:33 | DVHSR ---
APPROVED REPORT EXAM: Two-dimensional and M-mode echocardiogram with Doppler and color Doppler. Blood Pressure: 147/66 mmHg INDICATION Chest Pain Surgery/Intervention CABG: VSD repair, Aortic Aneursym repair RISK FACTORS Obesity: Height: 5'9, Weight: 217 DIMENSIONS LVDd5.8 (3.8-5.7cm)LA (2D)3.5 (1.9-4.0cm)Aortic Root4.4 (2.0-3.7cm) LVDs4.5 (2.5-4.0cm)LA (MM) (1.9-4.0cm)Aortic Cusp Exc1.4 (1.5-2.0cm) EF (%) 40.0 (55-70%)Rt. Atrium3.1 (1.9-4.0cm)Asc. Aorta3.1 cm IVSd1.0 (0.7-1.1cm)RV (D) (1.8-2.4cm) PWd1.0 (0.7-1.1cm) Mitral Valve MitralMitral Stenosis E wave0.61m/sMV Mean GR.mmHg A wave0.75m/sMV Peak GR.mmHg E/A ratio0.82D MVAcm2 DECEL [id number] 1/2 Timems Aortic Valve Aortic ValveAortic Stenosis V11.34m/Tona Mean GR.5mmHg V21.38m/Tona Peak GR.8mmHg LVOT Diameter3.5 (1.8-2.4cm)Doppler AVA9.34cm2 Pulmonic Valve V20.94m/s Other Information Quality : TDSRhythm : Technically limited study due to body habitus and CABG. Conclusion DYSKINESIS OF IVS MODERATELY DILATED LV APICAL ANTERIOR HYPOKINESIS LV EF IS IN RANGE OF 40% NORMAL VALVES NO EFFUSION
[2025-06-14] MEDS: CLINDAMYCIN 300MG IV 50 ML IV SCH (21:29)
[2025-06-14] MEDS: ACETAMINOPHEN 325 MG TAB PO SCH (23:32)
[2025-06-15] VITALS (8 sets, daily range): BP systolic 111–151; BP diastolic 61–83; PULSE 66–90; RESP 16–18; TEMP 96.4–100; O2SAT 95–99
[2025-06-15] MEDS: PANTOPRAZOLE 40 MG TAB PO SCH (06:00)
[2025-06-15 07:22] LABS: Urine Protein, UAD 1+ (Negative)
[2025-06-15 07:42] LABS: Hematocrit 43.6 % (41.0-53.0); Hemoglobin 15.2 g/dL (13.5-17.5); Mean Corpuscular Hemoglobin 32.0 pg (28.0-32.0); Mean Corpuscular Volume 91.8 fL (80.0-100.0); Nucleated Red Blood Cells % 0.0 %
[2025-06-15 07:46] LABS: Alanine Aminotransferase 22 U/L (7-40); Albumin 4.4 g/dL (3.2-4.8); Alkaline Phosphatase 75 U/L (46-116); Anion Gap 9 (5-15); BUN/Creatinine Ratio 19.8 (10.0-20.0); Bilirubin, Total 0.8 mg/dL (0.2-1.0); Calcium 9.1 mg/dL (8.7-10.4); Carbon Dioxide 26 mmol/L (20-31); Chloride 107 mmol/L (98-107); Cholesterol 163 mg/dL (< 200); Glucose 94 mg/dL (74-106); HDL Cholesterol 54 mg/dL (40-59); Sodium 142 mmol/L (136-145); Total Protein 6.7 g/dL (5.7-8.2); Triglycerides 122 mg/dL (< 150)
[2025-06-15 07:48] LABS: Cannabinoid Screen, Urine Pos (NEGATIVE)
[2025-06-15 07:49] LABS: Blood Urea Nitrogen 24 mg/dL (9-23); Potassium 3.4 mmol/L (3.5-5.1)
[2025-06-15 07:49] LABS: Barbiturate Scree,Urine Neg (NEGATIVE); Opiate Scree,Urine Neg (NEGATIVE)
[2025-06-15 07:50] LABS: Amphetamine Screen, Urine Neg (NEGATIVE); Benzodiazephine Screen, Urine Neg (NEGATIVE); Cocaine Screen, Urine Neg (NEGATIVE); Phencyclidine Screen, Urine Neg (NEGATIVE)
[2025-06-15] MEDS: MORPHINE SULFATE INJ 2 MG/ml SYRG IV PRN (09:04)
--- NOTE | 2025-06-15 09:13 | ECG ---
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
[2025-06-15] MEDS ORDERED: CLINDAMYCIN 600MG IV 50 ML IV SCH ×2 (10:00)
[2025-06-15] MEDS: KETOROLAC TROMETH 30 MG/ML 1ML VIAL IV ONE ×2 (10:38→20:58)
--- NOTE | 2025-06-15 14:57 | DVHPNRES ---
Progress Note Date Seen: Jun 15, 2025 Resident Creating Document: ARACELY BREAUX Medical Necessity Reason Pt with a Central, PICC or Fol: No (RN) Subjective Review of Systems Patient is a 89-by[age]-m[age] male with past medical history of CHF, aortic aneurysm repair, prediabetes, hypertension who came to ED for chest pain. Patient reports having had left upper wisdom tooth partial extracted about 3 weeks ago. Since then, he has been starting left-sided facial pain and yesterday, he started experiencing sharp, stabbing band-like chest pain, begins from the left side of the face, radiates to the left neck, left chest, left arm and left hand fingers. He denies any shortness of breath, fever, abdominal pain or any other complaints. Patient complained with facial pain, chest pain and back pain after breakfast and received 15 mg Toradol. Patient described the pain was started at the left jaw, go to facial then go to ear. EKG shows Sinus rhythm, Abnormal T, consider ischemia, lateral leads. Echocardiogram shows LVEF in range of 40%. cardiology consulted. Objective vital signs Vital Sign Date Time Temp Pulse Resp B/P (MAP) Pulse Ox O2 Delivery O2 Flow Rate FiO2 06/15/25 10:44 157/72 06/15/25 10:43 96 06/15/25 09:40 18 06/15/25 09:00 97.8 99 97.8 06/15/25 08:00 Room Air* 0 21 Total Intake and Output 06/14/25 06/14/25 06/15/25 15:00 23:00 07:00 Intake Total 480 ml 500 ml Output Total 2 ml 1 ml Balance 478 ml 499 ml medications Current Medications Medications Dose Ordered Sig/Pantera Route Start Time Stop Time Status Last Admin Dose Admin Sodium Chloride 10 ml Q8HR IV 06/14/25 06:00 06/15/25 13:53 10 ML Ondansetron HCl 4 mg Q4HP PRN IV 06/14/25 01:45 06/14/25 21:33 4 MG Enoxaparin Sodium 40 mg DAILY SC 06/14/25 10:00 06/14/25 10:30 40 MG Nitroglycerin 0.4 mg Q5MINP PRN SL 06/14/25 01:45 Morphine Sulfate 2 mg Q30M PRN IV 06/14/25 01:45 06/15/25 09:04 2 MG Aspirin 81 mg DAILY PO 06/14/25 10:00 06/15/25 10:36 81 MG Atorvastatin Calcium 20 mg DAILY PO 06/14/25 10:00 06/15/25 10:37 20 MG Carvedilol 6.25 mg DAILY PO 06/14/25 10:00 06/15/25 10:43 6.25 MG Lamotrigine 100 mg DAILY PO 06/14/25 10:00 06/15/25 10:38 100 MG Spironolactone 25 mg BID PO 06/14/25 10:00 06/15/25 10:39 25 MG Isosorbide Dinitrate 5 mg BID PO 06/14/25 10:00 06/15/25 10:44 5 MG Sacubitril/ Valsartan 2 tab BID PO 06/14/25 10:00 06/15/25 10:37 2 TAB Clindamycin Phosphate 50 ml @ 50 mls/hr TID IV 06/15/25 10:00 UNV Clindamycin Phosphate 50 ml @ 100 mls/hr Q8H IV 06/14/25 22:00 06/15/25 13:51 100 MLS/HR Acetaminophen 500 mg TID PO 06/14/25 22:00 06/15/25 06:00 500 MG Pantoprazole Sodium 40 mg DAILY@0600 PO 06/15/25 06:00 06/15/25 06:00 40 MG Examination General Appearance: Alert, Oriented X3, Cooperative, Mild distress HEENT: Atraumatic, Mucous membranes moist/pink Respiratory: Clear to auscultation, Normal air movement, No added sounds Cardiovascular: Holosystolic murmur, Regular rate, Normal S1, Normal S2 Abdominal/ : Active bowel sounds, Soft, no distention, no tenderness Extremities: No edema, Normal pulses, No tenderness/swelling Skin: No Significant rash, except past surgical scars Neuro: Normal speech, sensorimotor deficits none Psych/Mental Status: Mental status NL, Mood NL laboratory and microbiology Laboratory Tests 06/15/25 06:45 Test 06/15/25 06:45 Range/Units Serum Glucose 94 74-106 mg/dL Labs and/or images reviewed: Labs reviewed by me, Image(s) reviewed by me (RN) Problem List/Assessment/Plan Problem List/Assessment/Plan # Chest pain rule out ACS # possible acute on chronic systolic heart failure - EKG done- sinus rhythm. No specific intraventricular conduction delay. Borderline ST depression, inferior leads. Abnormal T, consider ischemia, diffuse leads. (06/14/2025) - Troponin negative - Morphine and nitroglycerin as needed for chest pain - on GDMT, continue Sacubitril-Valsartan, Carvedilol, Spironolactone - Isosorbide dinitrate - Aspirin 81 mg, Atorvastatin - cardiology consulted - EKG done- Sinus rhythm, Paired ventricular premature complexes. Nonspecific intraventricular conduction delay. Abnormal T, consider ischemia, lateral leads. (06/15/2025) - Echocardiogram- Dyskinesis of IVS. Moderately dilated LV. Apical Anterior Hypokinwaia. LVEF ia in range of 40%. Normal valves. No effusion. # 1.5 cm lung nodule seen on chest x-ray - ordered chest CT: No focal consolidation. No suspicious pulmonary nodule. # Small left upper molar periapical abscess with a cavity # nausea and vomiting due to suspected infection -Maxillofacial CT- Small left upper molar periapical abscess with a cavity. Small left upper molar periapical abscess with a cavity. The facial bones, including the orbits and paranasal sinuses are intact without evidence of fracture. The paranasal sinuses, mastoid air cells and middle ear cavities are well aerated. The orbital contents are normal. The soft tissues of the face are unremarkable. -Clindamycin 300 MG IV q8hr -Ketorolac 15 mg IV once - IV Zofran as needed # history of questionable seizures - resumed home medication lamotrigine # prediabetes, A1c 5.9 - monitor Cardiac diet PUD prophylaxis: protonix 40mg DVT prophylaxis: Levonox 40mg Goals of care: Full code, discussed for >16 minutes on 06/15/25 Plan discussed with patient Plan discussed with Dr. Bateman. Plan discussed with: Patient, Other (RN) My Orders My Orders Orders - ARACELY BREAUX Procedure Category Date Status Time Complete Blood Count LAB 06/16/25 Verified 04:00 Basic Metabolic Panel LAB 06/16/25 Verified 04:00 Date of Service: Jun 15, 2025 Billing Provider: GEORGES BATEMAN MD Common Visit Codes: [id number] INP/OBS CARE(HIGH) ARACELY BREAUX Jun 15, 2025 14:57 GEORGES BATEMAN MD Jun 19, 2025 20:59
--- NOTE | 2025-06-15 19:14 | ECG ---
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
[2025-06-16 01:00] VITALS: BP 118/66; PULSE 90; RESP 14; TEMP 98.3; O2SAT 98
[2025-06-16 05:00] VITALS: BP 136/79; PULSE 96; RESP 16; TEMP 97.3; O2SAT 98
[2025-06-16] MEDS: KETOROLAC TROMETH 30 MG/ML 1ML VIAL IV ONE (06:15)
[2025-06-16 07:26] LABS: Hematocrit 46.9 % (41.0-53.0); Hemoglobin 16.2 g/dL (13.5-17.5); Mean Corpuscular Hemoglobin 32.0 pg (28.0-32.0); Mean Corpuscular Volume 92.3 fL (80.0-100.0); Nucleated Red Blood Cells % 0.0 %
[2025-06-16 07:36] LABS: Calcium 9.4 mg/dL (8.7-10.4); Chloride 105 mmol/L (98-107); Potassium 4.0 mmol/L (3.5-5.1); Sodium 143 mmol/L (136-145)
[2025-06-16 07:37] LABS: Anion Gap 9 (5-15); Carbon Dioxide 29 mmol/L (20-31)
[2025-06-16 07:42] LABS: BUN/Creatinine Ratio 17.9 (10.0-20.0); Blood Urea Nitrogen 21 mg/dL (9-23); Glucose 90 mg/dL (74-106)
[2025-06-16 08:00] VITALS: PULSE 73
[2025-06-16 08:30] VITALS: BP 150/76; PULSE 84; RESP 20; TEMP 96.7; O2SAT 94
[2025-06-16 13:05] VITALS: BP 126/67; PULSE 80; RESP 20; TEMP 95.3; O2SAT 94
[2025-06-16 13:23] VITALS: BP 118/84; PULSE 83; TEMP 35.2
--- NOTE | 2025-06-16 14:35 | DVHINCON2 ---
Date Seen: Jun 16, 2025 Referring Physician MD Amelie Reason for Consultation Chest pain History of Present Illness This is a pleasant 60-year-old man who presented to the emergency room with a chief complaint of left jaw pain. The patient reported left jaw pain radiating accross his chest wall area and left upper extremity and described as a sharp pain that felt like "fire" as well as a tingling sensation. The chest pain and left upper extremity pain have resolved. Currently complains of left tooth pain. Denies any other cardiac symptoms including SOB, palpitations, dizziness or diaphoresis. He underwent a 12 lead electrocardiogram revealing a sinus rhythm suggestive of left ventricular hypertrophy. Follows up in the outpatient setting with Dr. Colvin. Latest cardiac catheterization was completed in 2019 where he was found with normal coronaries and no need of catheter based interventions. Significant medical history includes nonischemic cardiomyopathy with HFrecEF at 40%, status post ascending aortic aneurysm repair at [facility] in [place] in 2020, hypertension, dyslipidemia, bipolar disorder, and obesity. Past Medical History Past medical history reviewed. No other significant than mentioned above. Past Surgical History Ascending aortic aneurysmal repair, 2020 Left/right inguinal hernia Laparoscopic cholecystectomy Family History: Cirrhosis of liver G8 FATHER Depression 19 CHILD Diabetes mellitus G8 MOTHER, G8 FATHER FH: dementia G8 MOTHER, FH: throat cancer G8 FATHER Family History Family history reviewed. Social History Denies the use of alcohol, or tobacco use. UDS positive for cannabinoids. Allergies: Coded Allergies: Quetiapine (Verified Allergy, Unknown, 01/02/19) Home Meds Active Scripts Ranolazine (Ranexa) 500 Mg Tab, 500 MG PO BID, #60 TAB Prov:ТАТЬЯНА PLATA MD 03/10/20 Reported Medications Fluoxetine HCl (Fluoxetine) 60 Mg Tab, 20 MG PO DAILY, TAB 06/14/25 Lamotrigine (Lamotrigine) 100 Mg Tab, 1 TAB PO DAILY, #30 TAB 2 Refills 06/14/25 Nortriptyline Hcl (PAMELOR CAPSULE) 25 Mg Cp, 10 MG GT DAILY, CAP 06/14/25 Isosorbide Dinitrate (Isosorbide Dinitrate) 5 Mg Tab, 5 MG PO BID for 30 Days, MG 06/14/25 Sacubitril-Valsartan (Entresto 49-51 mg) 1 Tab Tab, 1 TAB PO BID, TAB 06/14/25 Meloxicam (Meloxicam) 7.5 Mg Tab, 7.5 MG PO BID, TAB 06/14/25 Cyclobenzaprine Hcl (CYCLOBENZAPRINE HCL) 7.5 Mg Tab, 10 MG PO DAILY, TAB 06/14/25 Lisinopril (Lisinopril) 10 Mg Tab, 10 MG PO DAILY, TAB 03/16/20 Carvedilol (Carvedilol) 12.5 Mg Tab, 6.25 MG PO DAILY, TAB 03/16/20 Spironolactone (Spironolactone) 25 Mg Tab, 25 MG PO BID, TAB 03/16/20 Potassium Chloride (POTASSIUM CHLORIDE CR) 10 Meq Tb, 1 TAB PO DAILY, #30 TAB 5 Refills 03/16/20 Furosemide (Furosemide) 40 Mg Tab, 1 TAB PO DAILY, #30 TAB 5 Refills 03/16/20 Nitroglycerin (NTROSTAT SUBLINGUAL) 0.4 Mg Sl, 0.4 MG SL PRN, TAB *MAY REPEAT EVERY 5 MINUTES X 3 TOTAL IF NO RELIEF, INITIATE ANALGESIC THERAPY. NOTIFY PHYSICIAN *Do not crush. 02/03/20 Aspirin (Aspir-Low) 81 Mg Tab, 81 MG PO DAILY for 30 Days, MG 02/03/20 Atorvastatin Calcium (Lipitor) 20 Mg Tab, 1 TAB PO DAILY, #90 TAB 1 Refill 02/03/20 Home Meds Home medications reviewed. Review of Systems Constitutional: No symptom reported Ears, Nose, & Throat: Jaw/tooth pain Eyes: No symptom reported Neurological: No symptoms reported Pulmonary/Respiratory: No symptom reported Cardiovascular: No symptom reported Gastrointestinal: No symptom reported Genitourinary: No symptom reported Musculoskeletal: No symptom reported Skin: No symptom reported Psychiatric: No symptom reported Endocrine: No symptom reported Hemotologic/Lymphatic: No symptom reported Vital Signs Vital Signs Date Time Temp Pulse Resp B/P (MAP) Pulse Ox O2 Delivery O2 Flow Rate FiO2 06/16/25 13:23 35.2 83 06/16/25 13:05 20 126/67 (86) 94 06/16/25 08:00 Room Air* 0 21 Physical Exam General Appearance: Cooperative. Well developed. Obese. In no acute distress Head Exam: Normal inspection Neck Exam: Normal inspection. Non-tender. Normal alignment Pulmonary/Respiratory: Chest non-tender. Clear bilateral breath sounds Cardiovascular/Chest: Regular rate and rhythm. S1, S2. Sinus rhythm with LVH. No murmurs. No JVD. Peripheral Pulses: 2+ Radial (R). 2+ Radial (L). 2+ Pedal (R). 2+ Pedal (L) Abdominal Exam: Normal bowel sounds. Soft. Ankle Exam: Negative ankle edema Lower extremities: Negative lower extremity edema Neuro/Mental Status: A&O x4. Coherent Thoughts/Psych: Normal thought pattern. Appropriate mood and affect. Good judgement and insight Appearance: In no acute distress Skin Exam: Normal inspection. Normal color. Warm. Dry Labs/Diagnostic Data Labs Test 06/16/25 06:12 06/15/25 22:16 06/15/25 06:50 06/15/25 06:49 Range/Units White Blood Count 6.9 4.4-10.8 10^3/uL Red Blood Count 5.08 4.5-5.90 10^6/uL Hemoglobin 16.2 13.5-17.5 g/dL Hematocrit 46.9 41.0-53.0 % Mean Corpuscular Volume 92.3 80.0-100.0 fL Mean Corpuscular Hemoglobin 32.0 28.0-32.0 pg Mean Corpuscular Hemoglobin Concent 34.6 32.0-36.0 g/dL Red Cell Distribution Width 14.3 11.8-14.3 % Platelet Count 211 140-450 10^3/uL Mean Platelet Volume 7.5 6.9-10.8 fL Neutrophils (%) (Auto) 54.8 37.0-80.0 % Lymphocytes (%) (Auto) 28.7 10.0-50.0 % Monocytes (%) (Auto) 14.2 H 0.0-12.0 % Eosinophils (%) (Auto) 1.7 0.0-7.0 % Basophils (%) (Auto) 0.6 0.0-2.0 % Neutrophils # (Auto) 3.8 1.6-8.6 10 ^3/uL Lymphocytes # (Auto) 2.0 0.4-5.4 10 ^3/uL Monocytes # (Auto) 1.0 0-1.3 10 ^3/uL Eosinophils # (Auto) 0.1 0-0.8 10 ^3/uL Basophils # (Auto) 0 0-0.2 10 ^3/uL Nucleated Red Blood Cells 0.0 % Sodium Level 143 136-145 mmol/L Potassium Level 4.0 3.5-5.1 mmol/L Chloride Level 105 98-107 mmol/L Carbon Dioxide Level 29 20-31 mmol/L Anion Gap 9 5-15 Blood Urea Nitrogen 21 9-23 mg/dL Creatinine 1.17 0.700-1.30 mg/dL Glomerular Filtration Rate Calc 72 >90 mL/min BUN/Creatinine Ratio 17.9 10.0-20.0 Serum Glucose 90 74-106 mg/dL Calcium Level 9.4 8.7-10.4 mg/dL Troponin I High Sensitivity 11 </=54 ng/L Urine Opiates Screen Neg NEGATIVE Urine Fentanyl Screen Neg NEGATIVE Urine Barbiturates Screen Neg NEGATIVE Urine Phencyclidine Screen Neg NEGATIVE Urine Amphetamines Screen Neg NEGATIVE Urine Benzodiazepines Screen Neg NEGATIVE Urine Cocaine Screen Neg NEGATIVE Urine Cannabinoids Screen Pos NEGATIVE Urine Color Light-orange Yellow Urine Clarity Turbid H Clear Urine pH 5.5 5.0-9.0 Urine Specific [place] 1.041 H 1.001-1.035 Urine Protein 1+ H Negative Urine Ketones Trace Negative Urine Blood 3+ H Negative /uL Urine Nitrite Negative Negative Urine Bilirubin Negative Negative Urine Urobilinogen Normal Negative mg/dL Urine Leukocyte Esterase Negative Negative /uL Urine RBC 895 0 - 3 /hpf Urine Microscopic WBC 12 H 0-3 /HPF Urine Squamous Epithelial Cells Few <5 /hpf Urine Bacteria None seen None Seen /hpf Urine Mucus Moderate None Seen Urine Glucose Normal Normal mg/dL Test 06/15/25 06:45 06/14/25 13:27 Range/Units Total Bilirubin 0.8 0.2-1.0 mg/dL Aspartate Amino Transferase (AST) 21 13-40 U/L Alanine Aminotransferase (ALT) 22 7-40 U/L Alkaline Phosphatase 75 46-116 U/L Total Protein 6.7 5.7-8.2 g/dL Albumin 4.4 3.2-4.8 g/dL Triglycerides Level 122 < 150 mg/dL Cholesterol Level 163 < 200 mg/dL LDL Cholesterol 98 < 100 mg/dL HDL Cholesterol 54 40-59 mg/dL Hemoglobin A1c 5.9 H <5.7 % A1C Thyroid Stimulating Hormone (TSH) 0.62 0.55-4.78 uIU/mL Assessment Noncardiac chest pain, likely secondary to left upper molar abscess Chronic compensated nonischemic HFrecEF at 40% Status post AAA repair Hypertension Dyslipidemia Obesity Plan/Recommendation (Dr. Moon) The patient presents with noncardiac chest pain and chronic compensated HFrecEF. Recommendations are for patient to follow up with primary freight clerk Dr. Colvin as scheduled, to continue GDMT for CHF, and to continue antibiotic therapy per primary care team. There is no further cardiac workup indicated at this time. We will sign off at this time. Kindly call if you need to re-consult. Thank you for allowing us to participate in this patient's care. This medical document was created using an electronic medical record system with voice recognition software and computerized dictation system. Although this document has been carefully reviewed, there might still be some phonetic and typographical errors. Occasional wrong-word or ``sound-alike substitutions may have occurred due to the inherent limitations of voice recognition software. These areas are purely typographical due to imperfections of the software programs and do not reflect any compromise in the patient's medical care. Please read the chart carefully and recognize, using context, where these substitutions have occurred. Plan discussed with: Patient, Other NYHA Physical activity limitations: NA Date of Service: Jun 16, 2025 Billing Provider: CHAITANYA MACIAS Cardiology Common Codes: 55930-JRWTOER INP/OBS CARE (High) CHAITANYA MACIAS Jun 16, 2025 14:35
--- NOTE | 2025-06-16 15:21 | DVHDSRES ---
Discharge Summary Date of Admission Resident Creating Document: ARACELY BREAUX RESIDENT Jun 14, 2025 at 01:43 Date of Discharge: Jun 16, 2025 Labs/Diagnostic Data: Laboratory Results Test 06/16/25 06:12 06/15/25 22:16 06/15/25 06:50 06/15/25 06:49 White Blood Count 6.9 10^3/uL (4.4-10.8) Red Blood Count 5.08 10^6/uL (4.5-5.90) Hemoglobin 16.2 g/dL (13.5-17.5) Hematocrit 46.9 % (41.0-53.0) Mean Corpuscular Volume 92.3 fL (80.0-100.0) Mean Corpuscular Hemoglobin 32.0 pg (28.0-32.0) Mean Corpuscular Hemoglobin Concent 34.6 g/dL (32.0-36.0) Red Cell Distribution Width 14.3 % (11.8-14.3) Platelet Count 211 10^3/uL (140-450) Mean Platelet Volume 7.5 fL (6.9-10.8) Neutrophils (%) (Auto) 54.8 % (37.0-80.0) Lymphocytes (%) (Auto) 28.7 % (10.0-50.0) Monocytes (%) (Auto) 14.2 % (0.0-12.0) Eosinophils (%) (Auto) 1.7 % (0.0-7.0) Basophils (%) (Auto) 0.6 % (0.0-2.0) Neutrophils # (Auto) 3.8 10 ^3/uL (1.6-8.6) Lymphocytes # (Auto) 2.0 10 ^3/uL (0.4-5.4) Monocytes # (Auto) 1.0 10 ^3/uL (0-1.3) Eosinophils # (Auto) 0.1 10 ^3/uL (0-0.8) Basophils # (Auto) 0 10 ^3/uL (0-0.2) Nucleated Red Blood Cells 0.0 % Sodium Level 143 mmol/L (136-145) Potassium Level 4.0 mmol/L (3.5-5.1) Chloride Level 105 mmol/L (98-107) Carbon Dioxide Level 29 mmol/L (20-31) Anion Gap 9 (5-15) Blood Urea Nitrogen 21 mg/dL (9-23) Creatinine 1.17 mg/dL (0.700-1.30) Glomerular Filtration Rate Calc 72 mL/min (>90) BUN/Creatinine Ratio 17.9 (10.0-20.0) Serum Glucose 90 mg/dL (74-106) Calcium Level 9.4 mg/dL (8.7-10.4) Troponin I High Sensitivity 11 ng/L (</=54) Urine Opiates Screen Neg (NEGATIVE) Urine Fentanyl Screen Neg (NEGATIVE) Urine Barbiturates Screen Neg (NEGATIVE) Urine Phencyclidine Screen Neg (NEGATIVE) Urine Amphetamines Screen Neg (NEGATIVE) Urine Benzodiazepines Screen Neg (NEGATIVE) Urine Cocaine Screen Neg (NEGATIVE) Urine Cannabinoids Screen Pos (NEGATIVE) Urine Color Light-orange (Yellow) Urine Clarity Turbid (Clear) Urine pH 5.5 (5.0-9.0) Urine Specific [place] 1.041 (1.001-1.035) Urine Protein 1+ (Negative) Urine Ketones Trace (Negative) Urine Blood 3+ /uL (Negative) Urine Nitrite Negative (Negative) Urine Bilirubin Negative (Negative) Urine Urobilinogen Normal mg/dL (Negative) Urine Leukocyte Esterase Negative /uL (Negative) Urine RBC 895 /hpf (0 - 3) Urine Microscopic WBC 12 /HPF (0-3) Urine Squamous Epithelial Cells Few /hpf (<5) Urine Bacteria None seen /hpf (None Seen) Urine Mucus Moderate (None Seen) Urine Glucose Normal mg/dL (Normal) Test 06/15/25 06:45 06/14/25 13:27 Total Bilirubin 0.8 mg/dL (0.2-1.0) Aspartate Amino Transferase (AST) 21 U/L (13-40) Alanine Aminotransferase (ALT) 22 U/L (7-40) Alkaline Phosphatase 75 U/L (46-116) Total Protein 6.7 g/dL (5.7-8.2) Albumin 4.4 g/dL (3.2-4.8) Triglycerides Level 122 mg/dL (< 150) Cholesterol Level 163 mg/dL (< 200) LDL Cholesterol 98 mg/dL (< 100) HDL Cholesterol 54 mg/dL (40-59) Hemoglobin A1c 5.9 % A1C (<5.7) Thyroid Stimulating Hormone (TSH) 0.62 uIU/mL (0.55-4.78) Other Laboratory Tests 06/16/25 06:12 Final Diagnosis/Problems List # Chest pain rule out ACS # possible acute on chronic systolic heart failure # 1.5 cm lung nodule seen on chest x-ray # Small left upper molar periapical abscess with a cavity # nausea and vomiting due to suspected infection # history of questionable seizures # prediabetes, A1c 5.9 Discharge Disposition: Home Discharge Instruct/Medications Diet: Cardiac 2g Na,low cholest Activity: No Restrictions, As Tolerated Follow Up/Referral: Follow up with cardiology within 1 week. Medications: -Clindamycin 50 mg -continue home medications Scheduled Aspirin (Aspir-Low), 81 MG PO DAILY, (Reported) Atorvastatin Calcium (Lipitor), 1 TAB PO DAILY, (Reported) Carvedilol (Carvedilol), 6.25 MG PO DAILY, (Reported) Cyclobenzaprine Hcl (Cyclobenzaprine Hcl), 10 MG PO DAILY, (Reported) Fluoxetine HCl (Fluoxetine), 20 MG PO DAILY, (Reported) Furosemide (Furosemide), 1 TAB PO DAILY, (Reported) Isosorbide Dinitrate (Isosorbide Dinitrate), 5 MG PO BID, (Reported) Lamotrigine (Lamotrigine), 1 TAB PO DAILY, (Reported) Lisinopril (Lisinopril), 10 MG PO DAILY, (Reported) Meloxicam (Meloxicam), 7.5 MG PO BID, (Reported) Nitroglycerin (Ntrostat Sublingual), 0.4 MG SL PRN, (Reported) Nortriptyline Hcl (Pamelor Capsule), 10 MG GT DAILY, (Reported) Potassium Chloride (Potassium Chloride Cr), 1 TAB PO DAILY, (Reported) Ranolazine (Ranexa), 500 MG PO BID Sacubitril-Valsartan (Entresto 49-51 mg), 1 TAB PO BID, (Reported) Spironolactone (Spironolactone), 25 MG PO BID, (Reported) Discharge Statement: "Patient was advised to return to the ER or call 911 if any headaches, dizziness, shortness of breath, chest pain, abdominal pain, bleeding, fevers, or worsening of medical condition. Patient was counseled about treatment plan, medications, possible side effects, patientverbalized understanding. All questions were answered to the best of my ability. This discharge took greater then 30 minutes in planning, reviewing documentation, counseling the patient, and discussing with other team members." ASSESSMENT ASSESSMENT Assessment # Chest pain rule out ACS # possible acute on chronic systolic heart failure # 1.5 cm lung nodule seen on chest x-ray # Small left upper molar periapical abscess with a cavity # nausea and vomiting due to suspected infection # history of questionable seizures # prediabetes, A1c 5.9 ARACELY BREAUX RESIDENT Jun 16, 2025 15:21
--- NOTE | 2025-06-16 18:29 | DVHDSRES ---
Discharge Summary Date of Admission Resident Creating Document: ARACELY BREAUX RESIDENT Jun 14, 2025 at 01:43 Date of Discharge: Jun 16, 2025 Admitting Diagnosis chest pain Labs/Diagnostic Data: Laboratory Results Test 06/16/25 06:12 06/15/25 22:16 06/15/25 06:50 06/15/25 06:49 White Blood Count 6.9 10^3/uL (4.4-10.8) Red Blood Count 5.08 10^6/uL (4.5-5.90) Hemoglobin 16.2 g/dL (13.5-17.5) Hematocrit 46.9 % (41.0-53.0) Mean Corpuscular Volume 92.3 fL (80.0-100.0) Mean Corpuscular Hemoglobin 32.0 pg (28.0-32.0) Mean Corpuscular Hemoglobin Concent 34.6 g/dL (32.0-36.0) Red Cell Distribution Width 14.3 % (11.8-14.3) Platelet Count 211 10^3/uL (140-450) Mean Platelet Volume 7.5 fL (6.9-10.8) Neutrophils (%) (Auto) 54.8 % (37.0-80.0) Lymphocytes (%) (Auto) 28.7 % (10.0-50.0) Monocytes (%) (Auto) 14.2 % (0.0-12.0) Eosinophils (%) (Auto) 1.7 % (0.0-7.0) Basophils (%) (Auto) 0.6 % (0.0-2.0) Neutrophils # (Auto) 3.8 10 ^3/uL (1.6-8.6) Lymphocytes # (Auto) 2.0 10 ^3/uL (0.4-5.4) Monocytes # (Auto) 1.0 10 ^3/uL (0-1.3) Eosinophils # (Auto) 0.1 10 ^3/uL (0-0.8) Basophils # (Auto) 0 10 ^3/uL (0-0.2) Nucleated Red Blood Cells 0.0 % Sodium Level 143 mmol/L (136-145) Potassium Level 4.0 mmol/L (3.5-5.1) Chloride Level 105 mmol/L (98-107) Carbon Dioxide Level 29 mmol/L (20-31) Anion Gap 9 (5-15) Blood Urea Nitrogen 21 mg/dL (9-23) Creatinine 1.17 mg/dL (0.700-1.30) Glomerular Filtration Rate Calc 72 mL/min (>90) BUN/Creatinine Ratio 17.9 (10.0-20.0) Serum Glucose 90 mg/dL (74-106) Calcium Level 9.4 mg/dL (8.7-10.4) Troponin I High Sensitivity 11 ng/L (</=54) Urine Opiates Screen Neg (NEGATIVE) Urine Fentanyl Screen Neg (NEGATIVE) Urine Barbiturates Screen Neg (NEGATIVE) Urine Phencyclidine Screen Neg (NEGATIVE) Urine Amphetamines Screen Neg (NEGATIVE) Urine Benzodiazepines Screen Neg (NEGATIVE) Urine Cocaine Screen Neg (NEGATIVE) Urine Cannabinoids Screen Pos (NEGATIVE) Urine Color Light-orange (Yellow) Urine Clarity Turbid (Clear) Urine pH 5.5 (5.0-9.0) Urine Specific [place] 1.041 (1.001-1.035) Urine Protein 1+ (Negative) Urine Ketones Trace (Negative) Urine Blood 3+ /uL (Negative) Urine Nitrite Negative (Negative) Urine Bilirubin Negative (Negative) Urine Urobilinogen Normal mg/dL (Negative) Urine Leukocyte Esterase Negative /uL (Negative) Urine RBC 895 /hpf (0 - 3) Urine Microscopic WBC 12 /HPF (0-3) Urine Squamous Epithelial Cells Few /hpf (<5) Urine Bacteria None seen /hpf (None Seen) Urine Mucus Moderate (None Seen) Urine Glucose Normal mg/dL (Normal) Test 06/15/25 06:45 06/14/25 13:27 Total Bilirubin 0.8 mg/dL (0.2-1.0) Aspartate Amino Transferase (AST) 21 U/L (13-40) Alanine Aminotransferase (ALT) 22 U/L (7-40) Alkaline Phosphatase 75 U/L (46-116) Total Protein 6.7 g/dL (5.7-8.2) Albumin 4.4 g/dL (3.2-4.8) Triglycerides Level 122 mg/dL (< 150) Cholesterol Level 163 mg/dL (< 200) LDL Cholesterol 98 mg/dL (< 100) HDL Cholesterol 54 mg/dL (40-59) Hemoglobin A1c 5.9 % A1C (<5.7) Thyroid Stimulating Hormone (TSH) 0.62 uIU/mL (0.55-4.78) Other Laboratory Tests 06/16/25 06:12 Brief Hx & Hospital Course: Patient is a [id number] male with past medical history of CHF, aortic aneurysm repair, prediabetes, hypertension who came to ED for chest pain. Patient reports having had left upper wisdom tooth partial extracted about 3 weeks ago. Since then, he has been starting left-sided facial pain and yesterday, he started experiencing sharp, stabbing band-like chest pain, begins from the left side of the face, radiates to the left neck, left chest, left arm and left hand fingers. He denies any shortness of breath, fever, abdominal pain or any other complaints. Patient complained with facial pain, chest pain and back pain after breakfast and received 15 mg Toradol. Patient described the pain was started at the left jaw, go to facial then go to ear. EKG shows Sinus rhythm, Abnormal T, consider ischemia, lateral leads. Echocardiogram shows LVEF in range of 40%. cardiology consulted. 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 Actively uses marijuana. PCP: Dr. Vargas Home medications: Carvedilol, Lipitor, isosorbide nitrate Lives with family Allergies: Quetiapine(Seroquel) Code status: Patient wants to discuss with Patient seen and examined at bedside. Patient is alert and oriented to time, place person and responding to all questions. Eyes: No Pain, No Vision change, No Conjunctivae inflammation, No Eyelid inflammation, No Other, No Redness ENT: Left Ear pain, Left facial pain, No Ear discharge, No Nose pain, No Nose discharge, No Nose congestion, No Mouth pain, No Mouth swelling, No Throat pain, No Throat swelling, No Other Cardiovascular: Chest Pain, No Palpitations, No Orthopnea, No Paroxysmal No Dyspnea, No Edema, No Lt Headedness, No Other Respiratory: No Cough, No Dry, No Shortness of breath, No SOB with exertion, No Wheezing, No Hemoptysis, No Pleuritic Pain, No Sputum, No Other Gastrointestinal: Nausea, Vomiting, No Abdominal Pain, No Diarrhea, No Constipation, No Melena, No Hematochezia, No Other Genitourinary: No Dysuria, No Frequency, No Incontinence, No Hematuria, No Retention, No Other Musculoskeletal: Neck pain, Left arm pain, No other, No shoulder pain, No arm pain, No back pain, No hand pain, No leg pain, No foot pain Skin: No Rash, No Lesions, No Jaundice, No Bruising, No Other General Appearance: Alert, Oriented X3, Cooperative, Mild distress HEENT: Atraumatic, Mucous membranes moist/pink Respiratory: Clear to auscultation, Normal air movement, No added sounds Cardiovascular: Holosystolic murmur, Regular rate, Normal S1, Normal S2 Abdominal/ : Active bowel sounds, Soft, no distention, no tenderness Extremities: No edema, Normal pulses, No tenderness/swelling Skin: No Significant rash, except past surgical scars Neuro: Normal speech, sensorimotor deficits none Psych/Mental Status: Mental status NL, Mood NL Operations or Procedures PROCEDURE(s): FAC2C - MAXILLOFACIAL WITHOUT REASON: left upper molar dental abcess? ORDER NUMBER(s): [id number], ACCESSION NUMBER(s): [id number] CT MAXILLOFACIAL WITHOUT INDICATION: left upper molar dental abcess EXAM DATE: 06/14/2025 12:40 PM COMPARISON: None RADIATION DOSE: CTDIvol: 66.95 mGy, DLP: 2576.41 mGy*cm PROCEDURE: Using the CT scanner, contiguous noncontrast scans were obtained from above the orbital rims to below the mandible. Coronal and sagittal reformatted images were then generated. All CT scans at this medical facility are performed using dose modulation techniques as appropriate to a performed exam including the following: Automated exposure control was utilized; adjustment of the MA and/or KV according to patient size; and use of iterative reconstruction technique. FINDINGS: Small left upper molar periapical abscess with a cavity. The facial bones, including the orbits and paranasal sinuses are intact without evidence of fracture. The paranasal sinuses, mastoid air cells and middle ear cavities are well aerated. The orbital contents are normal. The soft tissues of the face are unremarkable. IMPRESSION: Small left upper molar periapical abscess with a cavity. PROCEDURE(s): CX2CT - CHEST WITHOUT CONTRAST REASON: 1.5cm right lung nodule ORDER NUMBER(s): [id number], ACCESSION NUMBER(s): [id number] Procedure: CT CHEST WITHOUT CONTRAST Reason for study/Clinical History: 1.5cm right lung nodule Comparison Study: XY CHEST XRAY 1 VIEW on DOS: 06/13/25 TECHNIQUE: Multidetector CT of the chest was performed from the lung apices to the upper abdomen without the use of intravenous contract. Axial, coronal and sagittal multiplanar reformats were performed. Radiation Dose Information: CT Dose: CTDI volume is 28.2 mGy. Dose-length product is 2576.4 mGy*cm The dose indicators for CT are the volume Computed Tomography (CT) Dose Index (CTDIvol) and the Dose Length Product (DLP), and are measured in units of mGy and mGy-cm, respectively. These indicators are not patient dose, but values generated from the CT scanner acquisition factors. The report includes radiation exposure data for exposures received during this examination. FINDINGS: Lower neck: Unremarkable. Lungs: No focal consolidation. No suspicious pulmonary nodule. Heart/Vascular Structures: Cardiomegaly. Coronary artery calcifications. Vascular calcifications of the aorta. Lymph Nodes: No adenopathy Pleura: No pleural effusion or significant pneumothorax. Musculoskeletal: No acute osseous abnormality. Median sternotomy. Soft tissues: Normal. Upper abdomen: 0.2 cm nonobstructing stone in the right midpole kidney. IMPRESSION: No acute intrathoracic abnormality. Radiation optimization: All CT scans at this facility use at least one of these dose optimization techniques: automated exposure control mA and/or kV adjustment per patient size (includes targeted exams where dose is matched to clinical indication) or iterative reconstruction. - PROCEDURE(s): CXR1 - CHEST XRAY 1 VIEW REASON: chest pain ORDER NUMBER(s): [id number], ACCESSION NUMBER(s): [id number] CHEST RADIOGRAPH Indication: chest pain Technique: Single frontal view of the chest was obtained Comparison: None FINDINGS: Lines and Tubes: None Lungs: No focal consolidation. 1.5 cm nodular density of the right medial mid to lower lung zone. Pleura: No effusion. No pneumothorax. Cardiomediastinal contours: Unremarkable. Midline sternotomy wires are noted. Bones: No acute osseous abnormality. 1.3 x 1.9 cm density overlying the midline lower cervical spine which may represent hardware. IMPRESSION: No acute cardiopulmonary disease. 1.5 cm nodular density of the right medial mid to lower lung zone which may represent portal vasculature with a pulmonary nodule not excluded. CT should be considered for further evaluation. 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 DICTATED BY: DICTATED DATE/TIME:06/15/251910 - PROCEDURE(s): EKG - ELECTROCARDIGRAM ORDER NUMBER(s): [id number], ACCESSION NUMBER(s): [id number] Test Date: 2025-06-15 Test Time: 08:52:01 Pat Name: FARA CRANDALL Department: [facility] Room: 025T A Gender: M Medical Insurance Claims Processor: HALLEY : 1965 Requested By: ARACELY BREAUX Order Number: [id number] Reading MD: Measurements Intervals [place] Rate: 75 P: 43 CA: 191 QRS: 112 QRSD: 136 T: 117 QT: 398 QTc: 445 Interpretive Statements Sinus rhythm Paired ventricular premature complexes Nonspecific intraventricular conduction delay Abnormal T, consider ischemia, lateral leads Please click the below link to view image of tracing. DICTATED BY: DICTATED DATE/TIME:06/15/25 0852 - PROCEDURE(s): ECIDC - ECHO 2D MODE CARDIAC DOP REASON: chest pain ORDER NUMBER(s): [id number], ACCESSION NUMBER(s): [id number] APPROVED REPORT EXAM: Two-dimensional and M-mode echocardiogram with Doppler and color Doppler. Blood Pressure: 147/66 mmHg INDICATION Chest Pain Surgery/Intervention CABG: VSD repair, Aortic Aneursym repair RISK FACTORS Obesity: Height: 5'9, Weight: 217 DIMENSIONS LVDd 5.8 (3.8-5.7cm) LA (2D) 3.5 (1.9-4.0cm) Aortic Root 4.4 (2.0- 3.7cm) LVDs 4.5 (2.5-4.0cm) LA (MM) (1.9-4.0cm) Aortic Cusp Exc 1.4 (1.5- 2.0cm) EF (%) 40.0 (55-70%) Rt. Atrium 3.1 (1.9-4.0cm) Asc. Aorta 3.1 cm IVSd 1.0 (0.7-1.1cm) RV (D) (1.8-2.4cm) PWd 1.0 (0.7-1.1cm) Mitral Valve Mitral Mitral Stenosis E wave 0.61m/s MV Mean GR. mmHg A wave 0.75m/s MV Peak GR. mmHg E/A ratio 0.8 2D MVA cm2 DECEL Time 148ms PRESS 1/2 Time ms Aortic Valve Aortic Valve Aortic Stenosis V1 1.34m/s AO Mean GR. 5mmHg V2 1.38m/s AO Peak GR. 8mmHg LVOT Diameter 3.5 (1.8-2.4cm) Doppler TODD 9.34cm2 Pulmonic Valve V2 0.94m/s Other Information Quality : TDS Rhythm : Technically limited study due to body habitus and CABG. Conclusion DYSKINESIS OF IVS MODERATELY DILATED LV APICAL ANTERIOR HYPOKINESIS LV EF IS IN RANGE OF 40% NORMAL VALVES NO EFFUSION SIGNED BY: ANALY LOREDO MD SIGNED DATE/TIME: 06/14/252032 - PROCEDURE(s): EKG - ELECTROCARDIGRAM ORDER NUMBER(s): [id number], ACCESSION NUMBER(s): [id number] [facility] Test Date: 2025-06-13 Test Time: 18:31:35 Pat Name: FARA CRANDALL Department: [facility] ED Patient ID: [facility]-[id number] Room: Gender: M Medical Insurance Claims Processor: kassy : 1965 Requested By: JUSTICE SOLARES Order Number: [id number] Lita MD: Lilo Jimenez Measurements Intervals [place] Rate: 98 P: 57 CA: 174 QRS: 124 QRSD: 121 T: -60 QT: 349 QTc: 446 Interpretive Statements Sinus rhythm Nonspecific intraventricular conduction delay Borderline ST depression, inferior leads Abnormal T, consider ischemia, diffuse leads Electronically Signed On 06-13-2025 22:13:12 PDT by Lilo Jimenez Please click the below link to view image of tracing. DICTATED BY:LILO JIMENEZ Sr., MD DICTATED DATE/TIME:06/13/251830 ELECTRONICALLY SIGNED BY:LILO JIMENEZ Sr., MD 06/13/252212 PROCEDURE(s): EKG - ELECTROCARDIGRAM ORDER NUMBER(s): [id number], ACCESSION NUMBER(s): [id number] [facility] Test Date: 2025-06-13 Test Time: 19:32:51 Pat Name: FARA CRANDALL Department: [facility] ED Patient ID: [facility]-[id number] Room: Gender: Medical Insurance Claims Processor: : 1965 Requested By: JUSTICE SOLARES Order Number: [id number] Reading MD: Lilo Jimenez Measurements Intervals [place] Rate: 93 P: 53 CA: 172 QRS: 126 QRSD: 125 T: -61 QT: 364 QTc: 453 Interpretive Statements Sinus rhythm Nonspecific intraventricular conduction delay Anteroseptal infarct, old Abnormal T, consider ischemia, diffuse leads Electronically Signed On 06-13-2025 22:13:28 PDT by Lilo Jimenez Please click the below link to view image of tracing. DICTATED BY:LILO JIMENEZ Sr., MD DICTATED DATE/TIME:06/13/251931 ELECTRONICALLY SIGNED BY:LILO JIMENEZ Sr., MD 06/13/252212 PROCEDURE(s): EKG - ELECTROCARDIGRAM ORDER NUMBER(s): [id number], ACCESSION NUMBER(s): [id number] [facility] Test Date: 2025-06-13 Test Time: 17:27:11 Pat Name: FARA CRANDALL Department: [facility] ED Patient ID: [id number] Room: Gender: M Medical Insurance Claims Processor: kassy : 1965 Requested By: JUSTICE SOLARES Order Number: [id number] Reading MD: Lilo Jimenez Measurements Intervals [place] Rate: 88 P: 47 CA: 182 QRS: 128 QRSD: 129 T: -52 QT: 378 QTc: 458 Interpretive Statements Sinus rhythm Nonspecific intraventricular conduction delay Probable anteroseptal infarct, old Borderline ST depression, inferior leads Abnormal T, consider ischemia, diffuse leads Electronically Signed On 06-13-2025 22:13:02 PDT by Lilo Jimenez Please click the below link to view image of tracing. DICTATED BY:LILO JIMENEZ Sr., MD DICTATED DATE/TIME:06/13/25 1727 Condition at Discharge: Stable (RN) Final Diagnosis/Problems List # Chest pain rule out ACS # possible acute on chronic systolic heart failure # 1.5 cm lung nodule seen on chest x-ray # Small left upper molar periapical abscess with a cavity # nausea and vomiting due to suspected infection # history of questionable seizures # prediabetes, A1c 5.9 Discharge Disposition: Home Discharge Instruct/Medications Diet: Cardiac 2g Na,low cholest Activity: No Restrictions, As Tolerated Follow Up/Referral: Follow up with cardiology within 1 week. Medications: -Clindamycin 50 mg -continue home medications Scheduled Aspirin (Aspir-Low), 81 MG PO DAILY, (Reported) Atorvastatin Calcium (Lipitor), 1 TAB PO DAILY, (Reported) Carvedilol (Carvedilol), 6.25 MG PO DAILY, (Reported) Cyclobenzaprine Hcl (Cyclobenzaprine Hcl), 10 MG PO DAILY, (Reported) Fluoxetine HCl (Fluoxetine), 20 MG PO DAILY, (Reported) Furosemide (Furosemide), 1 TAB PO DAILY, (Reported) Isosorbide Dinitrate (Isosorbide Dinitrate), 5 MG PO BID, (Reported) Lamotrigine (Lamotrigine), 1 TAB PO DAILY, (Reported) Lisinopril (Lisinopril), 10 MG PO DAILY, (Reported) Meloxicam (Meloxicam), 7.5 MG PO BID, (Reported) Nitroglycerin (Ntrostat Sublingual), 0.4 MG SL PRN, (Reported) Nortriptyline Hcl (Pamelor Capsule), 10 MG GT DAILY, (Reported) Potassium Chloride (Potassium Chloride Cr), 1 TAB PO DAILY, (Reported) Ranolazine (Ranexa), 500 MG PO BID Sacubitril-Valsartan (Entresto 49-51 mg), 1 TAB PO BID, (Reported) Spironolactone (Spironolactone), 25 MG PO BID, (Reported) Discharge Statement: "Patient was advised to return to the ER or call 911 if any headaches, dizziness, shortness of breath, chest pain, abdominal pain, bleeding, fevers, or worsening of medical condition. Patient was counseled about treatment plan, medications, possible side effects, patientverbalized understanding. All questions were answered to the best of my ability. This discharge took greater then 30 minutes in planning, reviewing documentation, counseling the patient, and discussing with other team members." ASSESSMENT ASSESSMENT Assessment # Chest pain rule out ACS # possible acute on chronic systolic heart failure # 1.5 cm lung nodule seen on chest x-ray # Small left upper molar periapical abscess with a cavity # nausea and vomiting due to suspected infection # history of questionable seizures # prediabetes, A1c 5.9 Date of Service: Jun 16, 2025 Billing Provider: GEORGES MEYER MD Common Visit Codes: 27002-ODN/OBS DISCH DAY >30min ARACELY BREAUX RESIDENT Jun 16, 2025 18:29 GEORGES MEYER MD Jun 19, 2025 20:59
--- NOTE | 2025-06-16 21:08 | DVHINCON2 ---
Date Seen: Jun 16, 2025 Referring Physician MD Amelie Reason for Consultation Chest pain History of Present Illness This is a pleasant 60-year-old man nonischemic cardiomyopathy with HFrecEF at 40%, status post ascending aortic aneurysm repair at [facility] in [place] in 2020, hypertension, dyslipidemia, bipolar disorder, and obesity who presented to the ED with a complaint of left jaw pain. The patient reported left jaw pain radiating across his chest wall area and left upper extremity and described as a sharp pain that felt like "fire" as well as a tingling sensation. The chest pain and left upper extremity pain have resolved. Currently complains of left tooth pain. Denies any other cardiac symptoms including SOB, palpitations, dizziness or diaphoresis. He underwent a 12 lead electrocardiogram revealing a sinus rhythm suggestive of left ventricular hypertrophy. Follows up in the outpatient setting with Dr. Colvin. Latest cardiac catheterization was completed in 2019 where he was found with normal coronaries and no need of catheter based interventions. Patient was admitted to the hospital, cardiology is asked to consult on this patient. Past Medical History Past medical history reviewed. No other significant than mentioned above. Past medical history reviewed. No other significant than mentioned above. Past Surgical History Ascending aortic aneurysmal repair, 2020 Left/right inguinal hernia Laparoscopic cholecystectomyLeft/right inguinal hernia Laparoscopic cholecystectomy Family History: Cirrhosis of liver G8 FATHER Depression 19 CHILD Diabetes mellitus G8 MOTHER, G8 FATHER FH: dementia G8 MOTHER, FH: throat cancer G8 FATHER Allergies: Coded Allergies: Quetiapine (Verified Allergy, Unknown, 01/02/19) Home Meds Active Scripts Ranolazine (Ranexa) 500 Mg Tab, 500 MG PO BID, #60 TAB Prov:ТАТЬЯНА PLATA MD 03/10/20 Reported Medications Fluoxetine HCl (Fluoxetine) 60 Mg Tab, 20 MG PO DAILY, TAB 06/14/25 Lamotrigine (Lamotrigine) 100 Mg Tab, 1 TAB PO DAILY, #30 TAB 2 Refills 06/14/25 Nortriptyline Hcl (PAMELOR CAPSULE) 25 Mg Cp, 10 MG GT DAILY, CAP 06/14/25 Isosorbide Dinitrate (Isosorbide Dinitrate) 5 Mg Tab, 5 MG PO BID for 30 Days, MG 06/14/25 Sacubitril-Valsartan (Entresto 49-51 mg) 1 Tab Tab, 1 TAB PO BID, TAB 06/14/25 Meloxicam (Meloxicam) 7.5 Mg Tab, 7.5 MG PO BID, TAB 06/14/25 Cyclobenzaprine Hcl (CYCLOBENZAPRINE HCL) 7.5 Mg Tab, 10 MG PO DAILY, TAB 06/14/25 Lisinopril (Lisinopril) 10 Mg Tab, 10 MG PO DAILY, TAB 03/16/20 Carvedilol (Carvedilol) 12.5 Mg Tab, 6.25 MG PO DAILY, TAB 03/16/20 Spironolactone (Spironolactone) 25 Mg Tab, 25 MG PO BID, TAB 03/16/20 Potassium Chloride (POTASSIUM CHLORIDE CR) 10 Meq Tb, 1 TAB PO DAILY, #30 TAB 5 Refills 03/16/20 Furosemide (Furosemide) 40 Mg Tab, 1 TAB PO DAILY, #30 TAB 5 Refills 03/16/20 Nitroglycerin (NTROSTAT SUBLINGUAL) 0.4 Mg Sl, 0.4 MG SL PRN, TAB *MAY REPEAT EVERY 5 MINUTES X 3 TOTAL IF NO RELIEF, INITIATE ANALGESIC THERAPY. NOTIFY PHYSICIAN *Do not crush. 02/03/20 Aspirin (Aspir-Low) 81 Mg Tab, 81 MG PO DAILY for 30 Days, MG 02/03/20 Atorvastatin Calcium (Lipitor) 20 Mg Tab, 1 TAB PO DAILY, #90 TAB 1 Refill 02/03/20 Review of Systems Constitutional: No symptom reported Ears, Nose, & Throat: Jaw/tooth pain Eyes: No symptom reported Neurological: No symptoms reported Pulmonary/Respiratory: No symptom reported Cardiovascular: No symptom reported Gastrointestinal: No symptom reported Genitourinary: No symptom reported Musculoskeletal: No symptom reported Skin: No symptom reported Psychiatric: No symptom reported Endocrine: No symptom reported Hemotologic/Lymphatic: No symptom reported Vital Signs Vital Signs Date Time Temp Pulse Resp B/P (MAP) Pulse Ox O2 Delivery O2 Flow Rate FiO2 06/16/25 13:23 35.2 83 06/16/25 13:05 20 126/67 (86) 94 06/16/25 08:00 Room Air* 0 21 Physical Exam GENERAL: Alert and oriented x 3. No acute distress. Obese. EYES: PERRL, EOMI. Anicteric. HENT: Moist mucous membranes. LUNGS: Clear to auscultation bilaterally. CARDIOVASCULAR: Regular rate and rhythm. ABDOMEN: Soft, non-tender and non-distended. EXTREMITIES: No edema. NEUROLOGIC: No focal neurological deficits. SKIN: Warm, dry. Labs/Diagnostic Data Labs Test 06/16/25 06:12 06/15/25 22:16 06/15/25 06:50 06/15/25 06:49 Range/Units White Blood Count 6.9 4.4-10.8 10^3/uL Red Blood Count 5.08 4.5-5.90 10^6/uL Hemoglobin 16.2 13.5-17.5 g/dL Hematocrit 46.9 41.0-53.0 % Mean Corpuscular Volume 92.3 80.0-100.0 fL Mean Corpuscular Hemoglobin 32.0 28.0-32.0 pg Mean Corpuscular Hemoglobin Concent 34.6 32.0-36.0 g/dL Red Cell Distribution Width 14.3 11.8-14.3 % Platelet Count 211 140-450 10^3/uL Mean Platelet Volume 7.5 6.9-10.8 fL Neutrophils (%) (Auto) 54.8 37.0-80.0 % Lymphocytes (%) (Auto) 28.7 10.0-50.0 % Monocytes (%) (Auto) 14.2 H 0.0-12.0 % Eosinophils (%) (Auto) 1.7 0.0-7.0 % Basophils (%) (Auto) 0.6 0.0-2.0 % Neutrophils # (Auto) 3.8 1.6-8.6 10 ^3/uL Lymphocytes # (Auto) 2.0 0.4-5.4 10 ^3/uL Monocytes # (Auto) 1.0 0-1.3 10 ^3/uL Eosinophils # (Auto) 0.1 0-0.8 10 ^3/uL Basophils # (Auto) 0 0-0.2 10 ^3/uL Nucleated Red Blood Cells 0.0 % Sodium Level 143 136-145 mmol/L Potassium Level 4.0 3.5-5.1 mmol/L Chloride Level 105 98-107 mmol/L Carbon Dioxide Level 29 20-31 mmol/L Anion Gap 9 5-15 Blood Urea Nitrogen 21 9-23 mg/dL Creatinine 1.17 0.700-1.30 mg/dL Glomerular Filtration Rate Calc 72 >90 mL/min BUN/Creatinine Ratio 17.9 10.0-20.0 Serum Glucose 90 74-106 mg/dL Calcium Level 9.4 8.7-10.4 mg/dL Troponin I High Sensitivity 11 </=54 ng/L Urine Opiates Screen Neg NEGATIVE Urine Fentanyl Screen Neg NEGATIVE Urine Barbiturates Screen Neg NEGATIVE Urine Phencyclidine Screen Neg NEGATIVE Urine Amphetamines Screen Neg NEGATIVE Urine Benzodiazepines Screen Neg NEGATIVE Urine Cocaine Screen Neg NEGATIVE Urine Cannabinoids Screen Pos NEGATIVE Urine Color Light-orange Yellow Urine Clarity Turbid H Clear Urine pH 5.5 5.0-9.0 Urine Specific [place] 1.041 H 1.001-1.035 Urine Protein 1+ H Negative Urine Ketones Trace Negative Urine Blood 3+ H Negative /uL Urine Nitrite Negative Negative Urine Bilirubin Negative Negative Urine Urobilinogen Normal Negative mg/dL Urine Leukocyte Esterase Negative Negative /uL Urine RBC 895 0 - 3 /hpf Urine Microscopic WBC 12 H 0-3 /HPF Urine Squamous Epithelial Cells Few <5 /hpf Urine Bacteria None seen None Seen /hpf Urine Mucus Moderate None Seen Urine Glucose Normal Normal mg/dL Test 06/15/25 06:45 06/14/25 13:27 Range/Units Total Bilirubin 0.8 0.2-1.0 mg/dL Aspartate Amino Transferase (AST) 21 13-40 U/L Alanine Aminotransferase (ALT) 22 7-40 U/L Alkaline Phosphatase 75 46-116 U/L Total Protein 6.7 5.7-8.2 g/dL Albumin 4.4 3.2-4.8 g/dL Triglycerides Level 122 < 150 mg/dL Cholesterol Level 163 < 200 mg/dL LDL Cholesterol 98 < 100 mg/dL HDL Cholesterol 54 40-59 mg/dL Hemoglobin A1c 5.9 H <5.7 % A1C Thyroid Stimulating Hormone (TSH) 0.62 0.55-4.78 uIU/mL Assessment Noncardiac chest pain, likely secondary to left upper molar abscess. Chronic compensated nonischemic HFrecEF at 40%. Status post AAA repair. Hypertension. Dyslipidemia. Obesity. Plan/Recommendation I agree with your ongoing assessment and care of plan. Patient has been seen by Vianey Peña NP on my behalf. We have discussed the plan with the patient. The patient presents with noncardiac chest pain and chronic compensated HFrecEF. Recommendations are for patient to follow up with primary compounding pharmacy technician Dr. Colvin as scheduled, to continue GDMT for CHF, and to continue antibiotic therapy per primary care team. There is no further cardiac workup indicated at this time. We will sign off at this time. Kindly call if you need to re-consult. Additional plan as per the hospital course. Plan discussed with: Patient NYHA Physical activity limitations: NA Date of Service: Jun 16, 2025 Billing Provider: ANALY LOREDO MD Cardiology Common Codes: 22828-[id number] INP/OBS CARE (High) Cardiology Consultation Codes: 69955-[id number] CONSULT <45MIN ANALY LOREDO MD Jun 16, 2025 21:08
== END 2025-06-16 15:15 | disposition home or self-care (01) | DRG 114 ==
LOC: ER 17:22 → OVERFLOW 06-14 01:43 → TELE-EAST 06-14 03:55
PROVIDERS: ADMIT Internal Medicine Geriatric Medicine; ATTEND Emergency Medicine
DX: K04.7 Periapical abscess without sinus (principal); I50.23 Acute on chronic systolic (congestive) heart failure; I24.9 Acute ischemic heart disease, unspecified; I42.0 Dilated cardiomyopathy; I11.0 Hypertensive heart disease with heart failure; F31.9 Bipolar disorder, unspecified; Z68.32 Body mass index [BMI] 32.0-32.9, adult; E66.9 Obesity, unspecified; E78.5 Hyperlipidemia, unspecified; I25.10 Atherosclerotic heart disease of native coronary artery without angina pectoris; R73.03 Prediabetes; R91.1 Solitary pulmonary nodule; Z88.8 Allergy status to other drugs, medicaments and biological substances; Z83.3 Family history of diabetes mellitus; Z81.8 Family history of other mental and behavioral disorders; Z80.8 Family history of malignant neoplasm of other organs or systems; Z90.49 Acquired absence of other specified parts of digestive tract
CPT/HCPCS: 36415; 70486; 71045; 71250; 80048; 80053; 80061; 80307; 81001; 83036; 84443; 84484; 85025; 93005; 93306; 96372; 96374; 96375; G0378; J1885; J2405; J2470; J3490

== ENCOUNTER 2025-09-22 17:39 | Inpatient (IN) | payer MEDICAID, OTHER ==
[~2025-09-22] VITALS: Ht 175.3 cm; Wt 96.2 kg
[~2025-09-22 17:39] MED LIST changes: +CYCL-838 PO; +FLUO60TA7 PO; +ISOS5TAB PO; +LAMO100T44 PO; +MELO7.5T7 PO; +NORT25CA GT; +SACU1TAB7 PO
[2025-09-22 18:19] LABS: Hematocrit 51.3 % (41.0-53.0); Hemoglobin 17.7 g/dL (13.5-17.5); Mean Corpuscular Hemoglobin 32.0 pg (28.0-32.0); Mean Corpuscular Volume 92.4 fL (80.0-100.0); Nucleated Red Blood Cells % 0.2 %
--- NOTE | 2025-09-22 18:32 | ED.PDOC ---
HPI Comments 60 y/o M, BIBA, with PMHx of VSD repair, AAA repair, and kidney stones presents to the ED for CC of chest pain. Patient states, he has been experiencing substernal non-radiating chest pain x1day. Patient reports, chest pain started today (09/22/25) following a verbal altercation with his mother in law. Patient relays, shortly after to have had multiple episodes of emesis. At this time patient denies active chest pain, palpitations, shortness of breath, dizziness, or extremity swelling. He denies any family history of cardiac disease. He denies any fever, cough, shortness of breath, abdominal pain, urinary symptoms, sick contacts recent travel, history of PE or DVT. No other symptoms or modifying factors are present at this time. Chief Complaint: Chest Pain Time Seen by MD: 18:35 Reviewed Notes: Nurses Notes, Maintenance Plumber Notes, Medications, Allergies Allergies: Coded Allergies: Quetiapine (Verified Allergy, Unknown, 09/22/25) Information Source: Patient, Emergency Med Personnel Mode of Arrival: EMS Severity: Moderate Timing: Minutes Duration: Since onset Prehospital treatment: None Location: Substernal Radiation: No Radiation Onset: At Rest Cardiac Risk Factors: None PE Risk Factors: Other History of: None Modifying Factors: Nothing Associated Signs and Symptoms: N/V Past Medical History PAST MEDICAL HISTORY: Kidney Stones Surgical History: Denies all surgeries Family History Family History: Unknown Social History Smoker: Non-Smoker Alcohol: Denies ETOH Use Drugs: Marijuana Lives In: Home Constitutional: reports: sweats; denies: chills, diaphoresis, fatigue, fever, malaise, weakness, others EENTM: denies: blurred vision, double vision, ear bleeding, ear discharge, ear drainage, ear pain, ear ringing, eye pain, eye redness, hearing loss, mouth pain, mouth swelling, nasal discharge, nose bleeding, nose congestion, nose pain, photophobia, tearing, throat pain, throat swelling, voice changes, others Respiratory: reports: cough; denies: hemoptysis, orthopnea, SOB at rest, shortness of breath, SOB with excertion, stridor, wheezing, others Cardiovascular: reports: chest pain; denies: dizzy spells, diaphoresis, Dyspnea on exertion, edema, irregular heart beat, left arm pain, lightheadedness, palpitations, PND, syncope, others Gastrointestinal: reports: nausea, vomiting; denies: abdomen distended, abdominal pain, blood streaked bowels, constipated, diarrhea, dysphagia, difficulty swallowing, hematemesis, melena, poor appetite, poor fluid intake, rectal bleeding, rectal pain, others Genitourinary: denies: burning, dysuria, flank pain, frequency, hematuria, incontinence, penile discharge, penile sore, pain, testicle pain, testicle swelling, urgency, others Neurological: denies: dizziness, fainting, headache, left sided numbness, left sided weakness, numbness, paresthesia, pre-existing deficit, right sided numbness, right sided weakness, seizure, speech problems, tingling, tremors, weakness, others Musculoskeletal: denies: back pain, gout, joint pain, joint swelling, muscle pain, muscle stiffness, neck pain, others Integumetry: denies: bruises, change in color, change in hair/nails, dryness, laceration, lesions, lumps, rash, wounds, others Allergic/Immunocompromised: denies: Difficulty Healing, Frequent Infections, Hives, Itching, others Hematologic/Lymphatic: denies: anemia, blood clots, easy bleeding, easy bruising, swollen glands, others Endocrine: denies: excessive hunger, excessive sweating, excessive thirst, excessive urination, flushing, intolerance to cold, intolerance to heat, unexplained weight gain, unexplained weight loss, others Psychiatric: denies: anxiety, bipolar disorder, depression, hopeless, panic disorder, schizophrenia, sleepless, suicidal, others All Other Systems: Reviewed and Negative Physical Exam General Appearance: No Apparent Distress, Normal HEENT: Normal ENT Inspection, Pharynx Normal Neck: Full Range of Motion, Non-Tender, Normal, Normal Inspection Respiratory: Chest Non-Tender, Lungs Clear, No Accessory Muscle Use, No Respiratory Distress, Normal Breath Sounds Cardiovascular: No Edema, No Murmur, No Gallop, Normal Peripheral Pulses, Regular Rate/Rhythm Breast Exam: Deferred Gastrointestinal: No Organomegaly, Non Tender, No Pulsatile Mass, Normal Bowel Sounds, Soft Genitalia: Deferred Pelvic: Deferred Rectal: Deferred Extremities: No calf tenderness, Normal capillary refill, Normal inspection, Normal range of motion, Non-tender, No pedal edema Musculoskeletal : Apperance: Normal Neurologic: Alert, swager operator II-XII nml as Tested, No Motor Deficits, Normal Affect, Normal Mood, No Sensory Deficits Cerebellar Function: Normal Reflexes: Normal Skin: Dry, Normal Color, Warm Lymphatic: No Adenopathy Was a procedure done? Was a procedure done?: No CP Differential Dx Differential Diagnosis: Electrolyte Disorder, Heart Failure, [place], Renal Failure Differential Diagnosis: CHF Differential Diagnosis: Chest Wall Pain, Costochondritis, Esophageal reflux/spasm, Gastritis X-Ray, Labs, Meds, VS Vital Signs Date Time Temp Pulse Resp B/P (MAP) Pulse Ox O2 Delivery O2 Flow Rate FiO2 09/22/25 20:41 90 09/22/25 20:36 97.8 105 20 162/61 (94) 99 97.8 09/22/25 17:44 98.2 71 16 145/71 98 98.2 09/22/25 17:39 103 Lab Test 09/22/25 20:37 09/22/25 18:33 09/22/25 17:38 Range/Units Troponin I High Sensitivity Pending 17 16 </=54 ng/L White Blood Count 6.3 4.4-10.8 10^3/uL Red Blood Count 5.55 4.5-5.90 10^6/uL Hemoglobin 17.7 H 13.5-17.5 g/dL Hematocrit 51.3 41.0-53.0 % Mean Corpuscular Volume 92.4 80.0-100.0 fL Mean Corpuscular Hemoglobin 32.0 28.0-32.0 pg Mean Corpuscular Hemoglobin Concent 34.6 32.0-36.0 g/dL Red Cell Distribution Width 14.0 11.8-14.3 % Platelet Count 210 140-450 10^3/uL Mean Platelet Volume 7.9 6.9-10.8 fL Neutrophils (%) (Auto) 61.6 37.0-80.0 % Lymphocytes (%) (Auto) 29.3 10.0-50.0 % Monocytes (%) (Auto) 8.7 0.0-12.0 % Eosinophils (%) (Auto) 0.0 0.0-7.0 % Basophils (%) (Auto) 0.4 0.0-2.0 % Neutrophils # (Auto) 3.9 1.6-8.6 10 ^3/uL Lymphocytes # (Auto) 1.9 0.4-5.4 10 ^3/uL Monocytes # (Auto) 0.6 0-1.3 10 ^3/uL Eosinophils # (Auto) 0 0-0.8 10 ^3/uL Basophils # (Auto) 0 0-0.2 10 ^3/uL Nucleated Red Blood Cells 0.2 % Sodium Level 139 136-145 mmol/L Potassium Level 4.4 3.5-5.1 mmol/L Chloride Level 105 98-107 mmol/L Carbon Dioxide Level 14 L 20-31 mmol/L Anion Gap 20 H 5-15 Blood Urea Nitrogen 21 9-23 mg/dL Creatinine 1.60 H 0.700-1.30 mg/dL Glomerular Filtration Rate Calc 50 >90 mL/min BUN/Creatinine Ratio 13.1 10.0-20.0 Serum Glucose 167 H 74-106 mg/dL Calcium Level 10.1 8.7-10.4 mg/dL Current Medications Medications (Trade) Dose Ordered Sig/Pantera Route Start Time Stop Time Status Last Admin Ondansetron HCl (Zofran Po) 4 mg ONCE ONCE PO 09/22/25 20:15 09/22/25 20:16 DC 09/22/25 20:32 [place] [id number] Ph: [phone] DIAGNOSTIC IMAGING Diagnostic Imaging Report : [id number] Signed PATIENT: FARA CRANDALL ACCT: [id number] UNIT: [id number] : 1965 LOC: ER ROOM / BED: / AGE / SEX: 60 / M ADM STATUS: REG ER SERVICE 698 ORDERING PHYSICIAN: WENCESLAO GARCIA MD PROCEDURE(s): CXRP - CHEST PORTABLE REASON: CP ORDER NUMBER(s): [id number], ACCESSION NUMBER(s): [id number] CHEST RADIOGRAPH Indication: CP Technique: Single frontal view of the chest was obtained Comparison: XY CHEST XRAY 1 VIEW on DOS: 06/13/25 FINDINGS: Lines and Tubes: None Lungs: No focal consolidation. Pleura: No effusion. No pneumothorax. Cardiomediastinal contours: Unremarkable Bones: No acute osseous abnormality. IMPRESSION: 1. No acute cardiopulmonary disease. ATED BY: KEREN CARTY Jr., DO DICTATED DATE/TIME: 09/22/251830 SIGNED BY: KEREN CARTY Jr., SIGNED DATE/TIME: 09/22/251830 CC: X-Ray, Labs, Meds, VS Comment Patient with history of VSD and AAA with his medications, presents with chest pain, nausea, vomiting during a verbal altercation with his [id number], now fully resolved. Vital signs stable and exam unremarkable. Chest x-ray to evaluate for evidence of pneumonia, pneumothorax, CHF EKG and troponin to evaluate for evidence of arrhythmia, ACS, AMI Lab work (CBC, BMP) to evaluate for evidence of severe anemia, electrolyte abn ormality including hypokalemia, hyperkalemia, hypernatremia, hyponatremia, hyperglycemia, hypoglycemia, etc. Consider CT angio chest due to patient's presenting symptoms, but no CT angio chest obtained due to alternate cause of patient's presenting symptoms more likely after initial workup and management Re-evaluate Social determinant surveillance affecting care: Social determinants of health that will affect the patient's care: Poor health literacy (additional time provided an explanation) Poor access to outpatient care/followup (provided outpatient resources) Time of 1ST Reevaluation: 19:05 Reevaluation 1ST: Unchanged Patient Education/Counseling: Diagnosis, Treatment Family Education/Counseling: No Family Present SEPSIS Sepsis Screen Date sepsis recognized/suspect: Sep 22, 2025 Time Sepsis recognized/suspect: 1712 Recent Procedure: No On Antibiotic Therapy: No Respiratory Rate >20: No Heart Rate >90: No Temp<36 C (96.8 F) or >38.3 C: No SBP <90 or MAP <65 mmHG: No New Acute Mental Status Change: No Is the patient on CPAP, BIPAP,: No Physician Orders Chest Portable (09/22/25 18:05) Troponin-I Hs (09/22/25 20:48) Electrocardigram (09/22/25 17:48) Electrocardigram (09/22/25 18:48) Electrocardigram (09/22/25 20:48) Urinalysis (09/22/25 17:49) Vital Signs Date Time Temp Pulse Resp B/P (MAP) Pulse Ox O2 Delivery O2 Flow Rate FiO2 09/22/25 20:41 90 09/22/25 20:36 97.8 105 20 162/61 (94) 99 97.8 09/22/25 17:44 98.2 71 16 145/71 98 98.2 09/22/25 17:39 103 Laboratory Tests Test 09/22/25 17:38 White Blood Count 6.3 10^3/uL (4.4-10.8) Medications Medications Dose Ordered Sig/Pantera Route Start Time Stop Time Status Last Admin Dose Admin Ondansetron HCl 4 mg ONCE ONCE PO 09/22/25 20:15 09/22/25 20:16 DC 09/22/25 20:32 Departure 1 Departure Time of Disposition: 20:58 (On reassessment, patient is still complaining of chest pain. Troponin negative x2 and EKG unchanged with inferolateral T-wave inversions and sub [address] depressions. As patient is still having active chest pain, we will admit.) Impression: Primary Impression: Acute chest pain Additional Impression: Acute nausea with nonbilious vomiting Disposition: ADMITTED INPATIENT Admit to: Tele Condition: Guarded Critical Care Note Critical Care Time?: No Stability Stability form required: No Heart Score Heart Score: Heart Score Response (Comments) Value History Slightly Suspicious 0 EKG Normal 0 Age 45-64 1 Risk Factors 1 or 2 risk factors 1 Troponin 1-2 x's Normal limit 1 Total 3 I personally scribed for WENCESLAO GARCIA MD ([email or web address]) on 09/22/25 at 18:32. Electronically submitted by Britt David ([email or web address]). I personally scribed for WENCESLAO GARCIA MD ([email or web address]) on 09/22/25 at 18:34. Electronically submitted by Britt David ([email or web address]). I personally scribed for WENCESLAO GARCIA MD ([email or web address]) on 09/22/25 at 18:57. Electronically submitted by Britt David ([email or web address]). WENCESLAO GARCIA MD Sep 22, 2025 18:32
[2025-09-22 18:34] LABS: Chloride 105 mmol/L (98-107); Potassium 4.4 mmol/L (3.5-5.1); Sodium 139 mmol/L (136-145)
[2025-09-22 18:35] LABS: Anion Gap 20 (5-15)
[2025-09-22 18:36] LABS: Calcium 10.1 mg/dL (8.7-10.4)
[2025-09-22 18:38] LABS: Carbon Dioxide 14 mmol/L (20-31)
[2025-09-22 18:40] LABS: BUN/Creatinine Ratio 13.1 (10.0-20.0); Blood Urea Nitrogen 21 mg/dL (9-23); Glucose 167 mg/dL (74-106)
[2025-09-22] MEDS: ONDANSETRON ODT 4 MG TAB PO ONE (20:32)
[2025-09-22] MEDS ORDERED: ACETAMINOPHEN 325 MG TAB PO PRN (21:30)
[2025-09-22] MEDS ORDERED: DOCUSATE SOD 100 MG CAP PO PRN (21:30)
[2025-09-22] MEDS: SODIUM CHLOR 0.9% PF (SALINE LOCK) 10ML VIAL/SYR IV SCH (22:00)
--- NOTE | 2025-09-22 23:36 | DVHHP2 ---
History of Present Illness Reason for Visit: Acute chest pain History of Present Illness The patient is a 60-year-old male with past medical history of hyperlipidemia, hypertension, depression, and kidney stones who presented to [facility] ED with complaint of chest pain for the past 1 day. Patient reports that he has been experiencing substernal chest pain, nonradiating, rating 7/10 numeric scale, episodes of emesis, getting worse that prompted this visit. Patient was seen and evaluated in the ED, laboratory data shows WBC 6.3, platelets 210, sodium 139, potassium 4.4, BUN 21, creatinine 1.60, glucose 167, calcium 10.1, troponin 16, blood pressure 162/61, heart rate 90, temperature 97.8 F, O2 saturation 98% on room air. Chest x-ray show no acute cardiopulmonary disease. Please see medication orders section in the computer. On my assessment, patient denied chest pain at this moment, no headache, dizziness, diaphoresis, shortness of breaths, no diarrhea, nausea, vomiting, fever, no chills. Patient was admitted for further evaluation and medical management. Past Medical History HLD, HTN, Depression, Kidney Stones Past Surgical History AAA repair, VSD repair Family History Reviewed, noncontributory to the management of this case. Past Social History The patient lives at home, denies smoking, alcohol, uses marijuana. Review of Systems Constitutional: Yes: Sweats, Weakness; No: Fever, Chills, Malaise, Other Eyes: No: Pain, Vision change, Conjunctivae inflammation, Eyelid inflammation, Other, Redness ENT: No: Ear pain, Ear discharge, Nose pain, Nose discharge, Nose congestion, Mouth pain, Mouth swelling, Throat pain, Throat swelling, Other Respiratory: Cough; No: Dry, Shortness of breath, SOB with excertion, Wheezing, Hemoptysis, Pleuritic Pain, Sputum, Wheezing, Other Cardiovascular: Chest Pain; No: Palpitations, Orthopnea, Paroxysmal Noc. Dyspnea, Edema, Lt Headedness, Other Gastrointestinal: Nausea, Vomiting; No: Abdominal Pain, Diarrhea, Constipation, Melena, Hematochezia, Other Genitourinary: No Dysuria, No Frequency, No Incontinence, No Hematuria, No Retention, No Other Musculoskeletal: No: other, neck pain, shoulder pain, arm pain, back pain, hand pain, leg pain, foot pain Skin: No: Rash, Lesions, Jaundice, Bruising, Other Neurological: No: Weakness, Numbness, Incoordination, Change in speech, Confusion, Seizures, Other Allergies: Coded Allergies: Quetiapine (Verified Allergy, Unknown, 09/22/25) Medications Current Medications Medications Dose Ordered Sig/Pantera Route Start Time Stop Time Status Last Admin Dose Admin Fluoxetine HCl 40 mg DAILY PO 09/23/25 10:00 Atorvastatin Calcium 20 mg HS PO 09/22/25 22:00 Carvedilol 6.25 mg Q12HR PO 09/22/25 22:00 Amlodipine Besylate 10 mg DAILY PO 09/23/25 10:00 Aspirin 81 mg DAILY PO 09/23/25 10:00 Sodium Chloride 10 ml Q8HR IV 09/22/25 22:00 Acetaminophen/ Hydrocodone Bitart 1 tab Q4HP PRN PO 09/22/25 21:30 Ondansetron HCl 4 mg Q4HP PRN IV 09/22/25 21:30 Docusate Sodium 100 mg BIDPRN PRN PO 09/22/25 21:30 Acetaminophen 650 mg Q6HP PRN PO 09/22/25 21:30 Lamotrigine 150 mg Q12HR PO 09/22/25 22:00 Exam Vital Signs Vital Signs Date Time Temp Pulse Resp B/P (MAP) Pulse Ox O2 Delivery O2 Flow Rate FiO2 09/22/25 20:41 90 09/22/25 20:36 97.8 20 162/61 (94) 99 97.8 General Appearance: Alert, Oriented X3, Cooperative, No acute distress HEENT: Atraumatic, PERRLA, EOMI, Mucous membr. moist/pink Respiratory: Normal air movement Cardiovascular: Regular rate, Normal S1, Normal S2, No murmurs Abdominal: Normal bowel sounds, Soft, No tenderness, No hepatospenomegaly, No masses Extremities: No clubbing, No cyanosis, No edema, Normal pulses, No tenderness/swelling Skin: No rashes, No significant lesion Neuro: Normal speech, Normal tone, Sensation intact, Cranial nerves 3-12 NL, Reflexes 2+, Other (Generalized weakness) Psych/Mental Status: Mental status NL, Mood NL Labs/Xrays Labs Test 09/22/25 20:37 09/22/25 17:38 Range/Units Troponin I High Sensitivity 12 </=54 ng/L White Blood Count 6.3 4.4-10.8 10^3/uL Red Blood Count 5.55 4.5-5.90 10^6/uL Hemoglobin 17.7 H 13.5-17.5 g/dL Hematocrit 51.3 41.0-53.0 % Mean Corpuscular Volume 92.4 80.0-100.0 fL Mean Corpuscular Hemoglobin 32.0 28.0-32.0 pg Mean Corpuscular Hemoglobin Concent 34.6 32.0-36.0 g/dL Red Cell Distribution Width 14.0 11.8-14.3 % Platelet Count 210 140-450 10^3/uL Mean Platelet Volume 7.9 6.9-10.8 fL Neutrophils (%) (Auto) 61.6 37.0-80.0 % Lymphocytes (%) (Auto) 29.3 10.0-50.0 % Monocytes (%) (Auto) 8.7 0.0-12.0 % Eosinophils (%) (Auto) 0.0 0.0-7.0 % Basophils (%) (Auto) 0.4 0.0-2.0 % Neutrophils # (Auto) 3.9 1.6-8.6 10 ^3/uL Lymphocytes # (Auto) 1.9 0.4-5.4 10 ^3/uL Monocytes # (Auto) 0.6 0-1.3 10 ^3/uL Eosinophils # (Auto) 0 0-0.8 10 ^3/uL Basophils # (Auto) 0 0-0.2 10 ^3/uL Nucleated Red Blood Cells 0.2 % Sodium Level 139 136-145 mmol/L Potassium Level 4.4 3.5-5.1 mmol/L Chloride Level 105 98-107 mmol/L Carbon Dioxide Level 14 L 20-31 mmol/L Anion Gap 20 H 5-15 Blood Urea Nitrogen 21 9-23 mg/dL Creatinine 1.60 H 0.700-1.30 mg/dL Glomerular Filtration Rate Calc 50 >90 mL/min BUN/Creatinine Ratio 13.1 10.0-20.0 Serum Glucose 167 H 74-106 mg/dL Calcium Level 10.1 8.7-10.4 mg/dL PATIENT: FARA CRANDALL ACCT: [id number] UNIT: [id number] : 1965 LOC: ER ROOM / BED: / AGE / SEX: 60 / M ADM STATUS: REG ER SERVICE 04 ORDERING PHYSICIAN: WENCESLAO GARCIA MD PROCEDURE(s): CXRP - CHEST PORTABLE REASON: CP ORDER NUMBER(s): [id number], ACCESSION NUMBER(s): [id number] CHEST RADIOGRAPH Indication: CP Technique: Single frontal view of the chest was obtained Comparison: XY CHEST XRAY 1 VIEW on DOS: 06/13/25 FINDINGS: Lines and Tubes: None Lungs: No focal consolidation. Pleura: No effusion. No pneumothorax. Cardiomediastinal contours: Unremarkable Bones: No acute osseous abnormality. IMPRESSION: 1. No acute cardiopulmonary disease. SEPSIS Sepsis Screen Date sepsis recognized/suspect: Sep 22, 2025 Time Sepsis recognized/suspect: 17:13 Recent Procedure: No On Antibiotic Therapy: No Respiratory Rate >20: No Heart Rate >90: No Temp<36 C (96.8 F) or >38.3 C: No SBP <90 or MAP <65 mmHG: No New Acute Mental Status Change: No Is the patient on CPAP, BIPAP,: No Physician Orders Chest Portable (09/22/25 18:05) Electrocardigram (09/22/25 17:48) Electrocardigram (09/22/25 18:48) Electrocardigram (09/22/25 20:48) Urinalysis (09/22/25 17:49) Fluoxetine Capsule (Prozac Capsule) (09/23/25 10:00) Atorvastatin (Lipitor) (09/22/25 22:00) Carvedilol Tablet (Coreg Tablet) (09/22/25 22:00) Amlodipine Tablet (Norvasc Tablet) (09/23/25 10:00) Aspirin Tablet (09/23/25 10:00) Code Status (09/22/25 21:30) Sodium Chloride Lock (Saline Lock Ns) (09/22/25 22:00) Oxygen Per Hour (09/22/25 21:30) Hydrocodone-Acet 5/325mg Tab ([place] 5/32 (09/22/25 21:30) Ondansetron Hcl (Zofran) (09/22/25 21:30) Docusate Sodium Capsule (Colace Capsule) (09/22/25 21:30) Complete Blood Count (09/23/25 04:00) Comprehensive Metabolic Panel (09/23/25 04:00) Cardiac Diet-2gna,Lofat,Lochol (09/23/25 Breakfast) Condition: Serious (09/22/25 21:30) Acetaminophen Tablet (Tylenol Tablet) (09/22/25 21:30) Bedrest With Bathroom Privileg (09/22/25 21:30) Maintain Bed Rest (09/22/25 21:30) Sequential Compression Device (09/22/25 ) Lamotrigine Tablet (Lamictal Tablet) (09/22/25 22:00) Allergies (09/22/25 21:30) Hemoglobin A1c (09/22/25 23:33) Admit (09/22/25 23:33) Nitroglycerin Sublingual (Ntrostat Subli (09/22/25 23:45) Morphine Sulfate Injection (09/22/25 23:45) Stat Ekg For Chest Pain (09/22/25 23:33) Notify Md Of Changes From Base (09/22/25 23:33) Whiskey Filterer For 24 Hours (09/22/25 23:33) Emergency Dysrhythmia Protocol (09/22/25 23:33) Rhythm Strips Once Every Shift (09/22/25 23:33) Oxygen By Nasal Cannula (09/22/25 23:33) Vital Signs Date Time Temp Pulse Resp B/P (MAP) Pulse Ox O2 Delivery O2 Flow Rate FiO2 09/22/25 20:41 90 09/22/25 20:36 97.8 105 20 162/61 (94) 99 97.8 09/22/25 17:44 98.2 71 16 145/71 98 98.2 09/22/25 17:39 103 Laboratory Tests Test 09/22/25 17:38 White Blood Count 6.3 10^3/uL (4.4-10.8) Medications Medications Dose Ordered Sig/Pantera Route Start Time Stop Time Status Last Admin Dose Admin Ondansetron HCl 4 mg ONCE ONCE PO 09/22/25 20:15 09/22/25 20:16 DC 09/22/25 20:32 4 MG Assessment/Plan Assessment/Plan Acute chest pain Hyperglycemia Acute renal injury Generalized weakness Acute nausea with nonbilious vomiting Plan 1. Admit to telemetry unit 2. Breathing treatment 3. Pain control management 4. Management of fluids and electrolytes 5. Consultation for hospitalist 6. Diagnostic tests chest x-ray 7. DVT prophylaxis-on aspirin 8. Repeat labs CBC, CMP in a.m. 9. Continue with current medical management 10. Treatment plan discussed with patient and RN. Patient verbalized mariano umaña. Plan discussed with: Patient, Other (RN) My Orders Orders - ERASTO TRIPLETT DNP Procedure Category Date Status Time Fluoxetine Capsule PHA 09/23/25 In Process (Prozac Capsule) 10:00 Atorvastatin (Lipitor) PHA 09/22/25 In Process 22:00 Carvedilol Tablet PHA 09/22/25 In Process (Coreg Tablet) 22:00 Amlodipine Tablet PHA 09/23/25 In Process (Norvasc Tablet) 10:00 Aspirin Tablet PHA 09/23/25 In Process 10:00 Code Status CODE 09/22/25 Transmitted 21:30 Sodium Chloride Lock PHA 09/22/25 In Process (Saline Lock Ns) 22:00 Oxygen Per Hour RT 09/22/25 Transmitted 21:30 Hydrocodone-Acet PHA 09/22/25 In Process 5/325mg Tab ([place] 21:30 Ondansetron Hcl PHA 09/22/25 In Process (Zofran) 21:30 Docusate Sodium PHA 09/22/25 In Process Capsule (Colace 21:30 Complete Blood Count LAB 09/23/25 Verified 04:00 Comprehensive LAB 09/23/25 Verified Metabolic Panel 04:00 Cardiac DIET 09/23/25 Transmitted Diet-2gna,Lofat,Lochol Breakfast Condition: Serious KAMILA 09/22/25 In Process 21:30 Acetaminophen Tablet PHA 09/22/25 In Process (Tylenol Tablet) 21:30 Bedrest With Bathroom KAMILA 09/22/25 In Process Privileg 21:30 Maintain Bed Rest KAMILA 09/22/25 In Process 21:30 Sequential KAMILA 09/22/25 In Process Compression Device Lamotrigine Tablet PHA 09/22/25 In Process (Lamictal Tablet) 22:00 Allergies KAMILA 09/22/25 In Process 21:30 Hemoglobin A1c LAB 09/22/25 Verified 23:33 Admit ADMIT 09/22/25 Verified 23:33 Nitroglycerin PHA 09/22/25 Verified Sublingual (Ntrostat 23:45 Morphine Sulfate PHA 09/22/25 Verified Injection 23:45 Stat Ekg For Chest [facility] 09/22/25 Verified Pain 23:33 Notify Md Of Changes [facility] 09/22/25 Verified From Base 23:33 Whiskey Filterer For [facility] 09/22/25 Verified 24 Hours 23:33 Emergency Dysrhythmia [facility] 09/22/25 Verified Protocol 23:33 Rhythm Strips Once [facility] 09/22/25 Verified Every Shift 23:33 Oxygen By Nasal 09/22/25 Verified Cannula 23:33 Problem List: (1) Acute chest pain (2) Hyperglycemia (3) Acute renal injury (4) Generalized weakness (5) Acute nausea with nonbilious vomiting Date of Service: Sep 22, 2025 Billing Provider: ERASTO TRIPLETT DNP Common Visit Codes: [id number] INP/OBS CARE (HIGH) ERASTO TRIPLETT DNP Sep 22, 2025 23:36
[2025-09-22] MEDS ORDERED: MORPHINE SULFATE INJ 2 MG/ml SYRG IV PRN (23:45)
[2025-09-22] MEDS ORDERED: NITROGLYCERIN 0.4 MG SL TAB SL PRN (23:45)
[2025-09-23] VITALS (10 sets, daily range): BP systolic 138–171; BP diastolic 57–79; PULSE 72–101; RESP 16–20; TEMP 97.5–98.5; O2SAT 95–99
[2025-09-23] MEDS: CARVEDILOL 3.125 MG TAB PO SCH (01:06)
[2025-09-23] MEDS: ATORVASTATIN 20 MG TAB PO SCH (01:07)
[2025-09-23] MEDS: lamoTRIgine 100 MG TAB PO SCH (01:08)
[2025-09-23 01:30] LABS: Urine Protein, UAD 1+ (Negative)
[2025-09-23] MEDS: HYDROcodone-ACET 5/325MG TAB PO PRN (02:56)
[2025-09-23 04:44] LABS: Hematocrit 51.4 % (41.0-53.0); Hemoglobin 17.6 g/dL (13.5-17.5); Mean Corpuscular Hemoglobin 32.1 pg (28.0-32.0); Mean Corpuscular Volume 93.7 fL (80.0-100.0); Nucleated Red Blood Cells % 0.1 %
[2025-09-23 04:57] LABS: Anion Gap 15 (5-15); BUN/Creatinine Ratio 11.0 (10.0-20.0); Calcium 9.8 mg/dL (8.7-10.4); Carbon Dioxide 21 mmol/L (20-31); Chloride 101 mmol/L (98-107); Potassium 4.6 mmol/L (3.5-5.1); Sodium 137 mmol/L (136-145)
[2025-09-23 04:58] LABS: Bilirubin, Total 0.8 mg/dL (0.2-1.0)
[2025-09-23 05:09] LABS: Alkaline Phosphatase 110 U/L (46-116)
[2025-09-23 05:11] LABS: Alanine Aminotransferase 69 U/L (7-40); Albumin 4.8 g/dL (3.2-4.8); Blood Urea Nitrogen 27 mg/dL (9-23); Glucose 132 mg/dL (74-106); Total Protein 8.4 g/dL (5.7-8.2)
[2025-09-23] MEDS: ONDANSETRON HCL 4 MG/2 ML VIAL IV PRN (08:50)
[2025-09-23] MEDS: SODIUM CHLORIDE 0.9% 1,000 ML IV SCH (09:26)
--- NOTE | 2025-09-23 09:32 | DVH ---
CLINICAL HISTORY: DEBBIE TECHNIQUE: Complete ultrasound exam of the kidneys and bladder was performed. COMPARISON: XR ABDOMEN 1 VIEW (KUB) on DOS: 08/15/25, CT ABD/PEL W - IV on DOS: 08/13/25 FINDINGS: The right kidney has normal echogenicity and measures 9.9 cm. There is a 1.6 cm cyst with no evidence for stone. There is no hydronephrosis. The left kidney has normal echogenicity and measures 8.8 cm. There is no focal parenchymal abnormality or evidence for stone. There is no hydronephrosis. The bladder is not well distended therefore not well evaluated. IMPRESSION: NO SIGNIFICANT SONOGRAPHIC ABNORMALITY OF THE KIDNEYS.
[2025-09-23 09:48] LABS: Protein, Urine 112.4 mg/dL (1-14)
[2025-09-23 09:51] LABS: Cannabinoid Screen, Urine Pos (NEGATIVE); Opiate Scree,Urine Pos (NEGATIVE)
[2025-09-23 09:52] LABS: Amphetamine Screen, Urine Neg (NEGATIVE); Barbiturate Scree,Urine Neg (NEGATIVE); Benzodiazephine Screen, Urine Neg (NEGATIVE); Cocaine Screen, Urine Neg (NEGATIVE); Phencyclidine Screen, Urine Neg (NEGATIVE)
[2025-09-23] MEDS: SUCRALFATE 1 GM TAB PO ONE (12:27)
[2025-09-23] MEDS: PANTOPRAZOLE 40 MG TAB PO SCH (12:28)
[2025-09-23] MEDS: SUCRALFATE 1 GM TAB PO SCH (16:58)
[2025-09-23 17:54] LABS: Chloride 99 mmol/L (98-107); Potassium 4.5 mmol/L (3.5-5.1)
[2025-09-23 17:55] LABS: Anion Gap 11 (5-15); Calcium 9.5 mg/dL (8.7-10.4); Carbon Dioxide 25 mmol/L (20-31)
[2025-09-23 17:57] LABS: Sodium 135 mmol/L (136-145)
[2025-09-23 18:00] LABS: BUN/Creatinine Ratio 13.2 (10.0-20.0); Blood Urea Nitrogen 34 mg/dL (9-23); Glucose 123 mg/dL (74-106)
--- NOTE | 2025-09-23 19:46 | DVHPNRES ---
Progress Note Date Seen: Sep 23, 2025 Resident Creating Document: ROXI CORDOVA RESIDENT Medical Necessity Reason Pt with a Central, PICC or Fol: No Subjective Review of Systems Alejandro Hewitt is a 60-year old male with past medical history of hyperlipidemia, hypertension, AAA, CHF, bipolar disorder and anxiety who presented to the ED with a chief complaint of chest pain for the past 1 day. Patient describes the chest pain as bandlike pain radiating to the back, 10/10 in intensity associated with nausea and multiple episodes of vomiting and retching. The patient mentions he had 10 episodes of nonbloody vomiting. He denies any dizziness or shortness of breath. Past medical history:hyperlipidemia, hypertension, AAA, CHF,bipolar disorder and anxiety Past surgical history: AAA repair 4 years ago, VSD repair Social & Personal history: Lives at home with family Smoking: Denies Alcohol: Denies Drugs: Occasional marijuana use Allergies: quetiapine Patient seen and examined at bedside. Patient is alert and oriented to time, place person and responding to all questions. Eyes: No Pain, No Vision change, No Conjunctivae inflammation, No Eyelid inflammation, No Redness ENT: No Ear pain, No Ear discharge, No Nose pain, No Nose discharge, No Nose congestion, No Mouth pain, No Mouth swelling, No Throat pain, No Throat swelling Cardiovascular: Chest Pain, No Palpitations, No Orthopnea, No Paroxysmal No Dyspnea, No Edema, No Lt Headedness Respiratory: No Cough, No Dry, No Shortness of breath, No SOB with exertion, No Wheezing, No Hemoptysis, No Pleuritic Pain, No Sputum Gastrointestinal: Nausea, Vomiting, Abdominal Pain, No Diarrhea, No Constipation, No Melena, No Hematochezia Genitourinary: No Dysuria, No Frequency, No Incontinence, No Hematuria, No Retention Objective vital signs Vital Sign Date Time Temp Pulse Resp B/P (MAP) Pulse Ox O2 Delivery O2 Flow Rate FiO2 09/23/25 17:15 97.5 79 17 152/78 (102) 99 97.5 09/23/25 07:30 Room Air* 0 21 Total Intake and Output 09/22/25 09/22/25 09/23/25 15:00 23:00 07:00 Intake Total 150 ml Balance 150 ml medications Current Medications Medications Dose Ordered Sig/Pantera Route Start Time Stop Time Status Last Admin Dose Admin Fluoxetine HCl 40 mg DAILY PO 09/23/25 10:00 09/23/25 09:29 40 MG Atorvastatin Calcium 20 mg HS PO 09/22/25 22:00 09/23/25 01:07 20 MG Carvedilol 6.25 mg Q12HR PO 09/22/25 22:00 09/23/25 09:29 6.25 MG Amlodipine Besylate 10 mg DAILY PO 09/23/25 10:00 09/23/25 09:28 10 MG Aspirin 81 mg DAILY PO 09/23/25 10:00 09/23/25 09:27 81 MG Sodium Chloride 10 ml Q8HR IV 09/22/25 22:00 09/23/25 05:50 10 ML Acetaminophen/ Hydrocodone Bitart 1 tab Q4HP PRN PO 09/22/25 21:30 09/23/25 02:56 1 TAB Ondansetron HCl 4 mg Q4HP PRN IV 09/22/25 21:30 09/23/25 13:05 4 MG Docusate Sodium 100 mg BIDPRN PRN PO 09/22/25 21:30 Acetaminophen 650 mg Q6HP PRN PO 09/22/25 21:30 Lamotrigine 150 mg Q12HR PO 09/22/25 22:00 09/23/25 09:27 150 MG Nitroglycerin 0.4 mg Q5MINP PRN SL 09/22/25 23:45 Morphine Sulfate 2 mg Q30M PRN IV 09/22/25 23:45 Sodium Chloride 1,000 ml @ 75 mls/hr [id number] IV 09/23/25 07:30 09/23/25 17:31 75 MLS/HR Pantoprazole Sodium 40 mg BID PO 09/23/25 11:45 09/23/25 12:28 40 MG Sucralfate 1 gm QIDACHS PO 09/23/25 17:00 09/23/25 16:58 1 GM Examination General Appearance: Cooperative. Well developed. Well nourished. NAD Head Exam: Normal inspection Neck Exam: Normal inspection. Non-tender. Normal alignment Pulmonary/Respiratory: Chest non-tender. Clear bilateral breath sounds, no crackles, no wheezing. Cardiovascular/Chest: Regular rate and rhythm. No murmurs. No JVD. Peripheral Pulses: 2+ Radial (R). 2+ Radial (L). 2+ Pedal (R). 2+ Pedal (L) Abdominal Exam: Normal bowel sounds. Soft. normal abdomen, no visible veins, tenderness in mid upper abdomen. No hepatospenomegaly. No masses Ankle Exam: Negative ankle edema Lower extremities: Negative lower extremity edema Neuro/Mental Status: A&O x4. Coherent. Thoughts/Psych: Normal thought pattern. Appropriate mood and affect. Good judgement and insight Skin Exam: Normal inspection. Normal color. Warm. Dry laboratory and microbiology Laboratory Tests 09/23/25 17:31 09/23/25 03:40 Test 09/23/25 17:31 Range/Units Serum Glucose 123 H 74-106 mg/dL Microbiology Date/Time Source Procedure Growth Status 09/23/25 07:38 Nose MRSA Screen - Final Complete Labs and/or images reviewed: Labs reviewed by me, Image(s) reviewed by me Problem List/Assessment/Plan Problem List/Assessment/Plan # Acute chest pain, ruled out ACS # Hypertensive heart disease with Chronic systolic heart failure, EF 40% -tropes 16,17,12 -echo done on 06/14/25- LVEF 40% -EKG normal -chest xray unremarkable -amlodipine 10 mg daily p.o. and Coreg 6.25 mg p.o. q.12 hour -aspirin 81 mg daily p.o. # DEBBIE, likely due to VMN -Monitor BMP -avoid nephrotoxic agents -iv fluids @ 75 mL/hour -FeNa 0.1% -Renal US- 1.6 cm cyst in right kidney # Acute intractable vomiting, likely GERD -zofran 4 mg q.4 hour p.r.n. iv -protonix 40 mg p.o. b.i.d. and sucralfate 1g p.o. b.i.d. # Bipolar disorder -continue fluoxetine 40 mg daily p.o. -continue lamotrigine 150 mg q.12 hour p.o. # Hyperlipidemia -continue Lipitor 20 mg p.o. HS # Prediabetes with hyperglycemia -HbA1c is 5.8 -patient counselled on healthy lifestyle modifications and dietary changes # Polysubstance abuse -urine positive for opiates and cannbinoids -counselled extensively on cessation of drug use for >10 minutes PUD prophylaxis: Protonix DVT prophylaxis: Ambulatory Goals of care: Full code, discussed for >23 minutes Plan discussed with patient Plan discussed with Dr. Thomas Plan discussed with: Patient Date of Service: Sep 23, 2025 Billing Provider: JOSEFINA THOMAS MD Common Visit Codes: [id number] INP/OBS CARE(HIGH) TASHAROXI RESIDENT Sep 23, 2025 19:46
[2025-09-24 01:00] VITALS: BP 139/66; PULSE 69; RESP 20; TEMP 98.1; O2SAT 96
[2025-09-24 05:00] VITALS: BP 105/70; PULSE 87; RESP 20; TEMP 97.9; O2SAT 97
[2025-09-24] MEDS ORDERED: PANTOPRAZOLE 40 MG TAB PO SCH (06:00)
[2025-09-24 06:27] LABS: Anion Gap 10 (5-15); Carbon Dioxide 25 mmol/L (20-31); Chloride 102 mmol/L (98-107); Potassium 3.9 mmol/L (3.5-5.1); Sodium 137 mmol/L (136-145)
[2025-09-24 06:28] LABS: Calcium 8.8 mg/dL (8.7-10.4)
[2025-09-24 06:33] LABS: BUN/Creatinine Ratio 16.4 (10.0-20.0); Glucose 99 mg/dL (74-106)
[2025-09-24 06:35] LABS: Hematocrit 43.4 % (41.0-53.0); Hemoglobin 15.1 g/dL (13.5-17.5); Mean Corpuscular Hemoglobin 32.4 pg (28.0-32.0); Mean Corpuscular Volume 93.0 fL (80.0-100.0); Nucleated Red Blood Cells % 0.2 %
[2025-09-24 06:36] LABS: Blood Urea Nitrogen 32 mg/dL (9-23)
[2025-09-24 08:00] VITALS: PULSE 6; PULSE 66; RESP 18; O2SAT 98
[2025-09-24 09:00] VITALS: BP 105/52; PULSE 79; RESP 20; TEMP 97.8; O2SAT 97
[2025-09-24 12:37] VITALS: BP 141/60; PULSE 70; RESP 20; TEMP 97.6; O2SAT 96
--- NOTE | 2025-09-24 13:55 | DVHDSRES ---
Discharge Summary Date of Admission Resident Creating Document: ROXI CORDOVA RESIDENT Sep 22, 2025 at 23:33 Date of Discharge: Sep 24, 2025 Admitting Diagnosis Chest pain Wounds: No open wound was present Labs/Diagnostic Data: Laboratory Results Test 09/24/25 04:48 09/23/25 09:10 09/23/25 03:40 09/23/25 00:51 White Blood Count 7.5 10^3/uL (4.4-10.8) Red Blood Count 4.67 10^6/uL (4.5-5.90) Hemoglobin 15.1 g/dL (13.5-17.5) Hematocrit 43.4 % (41.0-53.0) Mean Corpuscular Volume 93.0 fL (80.0-100.0) Mean Corpuscular Hemoglobin 32.4 pg (28.0-32.0) Mean Corpuscular Hemoglobin Concent 34.8 g/dL (32.0-36.0) Red Cell Distribution Width 14.1 % (11.8-14.3) Platelet Count 177 10^3/uL (140-450) Mean Platelet Volume 7.8 fL (6.9-10.8) Neutrophils (%) (Auto) 60.2 % (37.0-80.0) Lymphocytes (%) (Auto) 25.7 % (10.0-50.0) Monocytes (%) (Auto) 13.4 % (0.0-12.0) Eosinophils (%) (Auto) 0.5 % (0.0-7.0) Basophils (%) (Auto) 0.2 % (0.0-2.0) Neutrophils # (Auto) 4.5 10 ^3/uL (1.6-8.6) Lymphocytes # (Auto) 1.9 10 ^3/uL (0.4-5.4) Monocytes # (Auto) 1.0 10 ^3/uL (0-1.3) Eosinophils # (Auto) 0 10 ^3/uL (0-0.8) Basophils # (Auto) 0 10 ^3/uL (0-0.2) Nucleated Red Blood Cells 0.2 % Sodium Level 137 mmol/L (136-145) Potassium Level 3.9 mmol/L (3.5-5.1) Chloride Level 102 mmol/L (98-107) Carbon Dioxide Level 25 mmol/L (20-31) Anion Gap 10 (5-15) Blood Urea Nitrogen 32 mg/dL (9-23) Creatinine 1.95 mg/dL (0.700-1.30) Glomerular Filtration Rate Calc 39 mL/min (>90) BUN/Creatinine Ratio 16.4 (10.0-20.0) Serum Glucose 99 mg/dL (74-106) Calcium Level 8.8 mg/dL (8.7-10.4) Urine Creatinine 331.69 mg/dL (30.0-125.0) Urine Protein/Creatinine Ratio 0.34 Urine Sodium 14 mmol/L (40-220) Urine Total Protein 112.4 mg/dL (1-14) Urine Opiates Screen Pos (NEGATIVE) Urine Fentanyl Screen Neg (NEGATIVE) Urine Barbiturates Screen Neg (NEGATIVE) Urine Phencyclidine Screen Neg (NEGATIVE) Urine Amphetamines Screen Neg (NEGATIVE) Urine Benzodiazepines Screen Neg (NEGATIVE) Urine Cocaine Screen Neg (NEGATIVE) Urine Cannabinoids Screen Pos (NEGATIVE) Total Bilirubin 0.8 mg/dL (0.2-1.0) Aspartate Amino Transferase (AST) 53 U/L (13-40) Alanine Aminotransferase (ALT) 69 U/L (7-40) Alkaline Phosphatase 110 U/L (46-116) B-Type Natriuretic Peptide 34.05 pg/mL (0-100) Total Protein 8.4 g/dL (5.7-8.2) Albumin 4.8 g/dL (3.2-4.8) Vitamin B12 Level 638 pg/mL (211-911) Vitamin D 25-Hydroxy 57.5 ng/mL (30.0-100) Thyroid Stimulating Hormone (TSH) 0.31 uIU/mL (0.55-4.78) Urine Color Yellow (Yellow) Urine Clarity Turbid (Clear) Urine pH 5.5 (5.0-9.0) Urine Specific [place] 1.026 (1.001-1.035) Urine Protein 1+ (Negative) Urine Ketones 1+ (Negative) Urine Blood 2+ /uL (Negative) Urine Nitrite Negative (Negative) Urine Bilirubin 1+ (Negative) Urine Urobilinogen 4 mg/dL (Negative) Urine Leukocyte Esterase Negative /uL (Negative) Urine RBC 41 /hpf (0 - 3) Urine Microscopic WBC 2 /HPF (0-3) Urine Squamous Epithelial Cells Few /hpf (<5) Urine Bacteria None seen /hpf (None Seen) Urine Hyaline Casts Many /lpf (0 - 2) Urine Mucus Few (None Seen) Urine Glucose Normal mg/dL (Normal) Test 09/22/25 20:37 09/22/25 17:38 Troponin I High Sensitivity 12 ng/L (</=54) Hemoglobin A1c 5.8 % A1C (<5.7) Other Laboratory Tests 09/24/25 04:48 Brief Hx & Hospital Course: Alejandro Hewitt is a 60-year old male with past medical history of hyperlipidemia, hypertension, AAA, CHF, bipolar disorder and anxiety who presented to the ED with the chief complaint of chest pain for the past 1 day. Patient described the chest pain as band-like pain radiating to the back, 10/10 in intensity associated with nausea and multiple episodes of vomiting and retching. The patient mentioned he had 10 episodes of nonbloody vomiting. EKG was normal. Tropes were 16, 17 and 12. Last echo done on 06/14/25 showed LVEF 40%. Creatinine was up trending , FENA was 0.1% likely prerenal and was given IV NS at 75 mL/hours which improved the creatinine to dropped down to 1.95 today. Patient did not complain of chest pain, nausea or vomiting anymore. He was discharged home in a stable condition on Protonix and Carafate and resumption of home medications. All medications and recommendations were thoroughly explained to the patient and he demonstrated understanding of the same. The patient was asked to follow-up in discharge clinic with repeat BMP and with PCP in 1-2 weeks. Past medical history:hyperlipidemia, hypertension, AAA, CHF,bipolar disorder and anxiety Past surgical history: AAA repair 4 years ago, VSD repair Social & Personal history: Lives at home with family Smoking: Denies Alcohol: Denies Drugs: Occasional marijuana use Allergies: quetiapine Physical examination on the day of discharge: General Appearance: Cooperative. Well developed. Well nourished. NAD Head Exam: Normal inspection Neck Exam: Normal inspection. Non-tender. Normal alignment Pulmonary/Respiratory: Chest non-tender. Clear bilateral breath sounds, no crackles, no wheezing. Cardiovascular/Chest: Regular rate and rhythm. No murmurs. No JVD. Peripheral Pulses: 2+ Radial (R). 2+ Radial (L). 2+ Pedal (R). 2+ Pedal (L) Abdominal Exam: Normal bowel sounds. Soft. normal abdomen, no visible veins, mild tenderness in mid upper abdomen. No hepatosplenomegaly. No masses Ankle Exam: Negative ankle edema Lower extremities: Negative lower extremity edema Neuro/Mental Status: A&O x4. Coherent. Thoughts/Psych: Normal thought pattern. Appropriate mood and affect. Good judgement and insight Skin Exam: Normal inspection. Normal color. Warm. Dry Counseled on marijuana use cessation for 16 minutes on the day of discharge Goals of care discussed with the patient for 20 minutes; full code Discussed with Dr. Delgado Consults/Reason for consult No consultation was done. Operations or Procedures 1.PROCEDURE(s): CXRP - CHEST PORTABLE REASON: CP ORDER NUMBER(s): [id number], ACCESSION NUMBER(s): [id number] CHEST RADIOGRAPH Indication: CP Technique: Single frontal view of the chest was obtained Comparison: XY CHEST XRAY 1 VIEW on DOS: 06/13/25 FINDINGS: Lines and Tubes: None Lungs: No focal consolidation. Pleura: No effusion. No pneumothorax. Cardiomediastinal contours: Unremarkable Bones: No acute osseous abnormality. IMPRESSION: No acute cardiopulmonary disease. 2.PROCEDURE(s): KIDUS - KIDNEY REASON: DEBBIE ORDER NUMBER(s): [id number], ACCESSION NUMBER(s): [id number] CLINICAL HISTORY: DEBBIE TECHNIQUE: Complete ultrasound exam of the kidneys and bladder was performed. COMPARISON: XR ABDOMEN 1 VIEW (KUB) on DOS: 08/15/25, CT ABD/PEL W - IV on DOS: 08/13/25 FINDINGS: The right kidney has normal echogenicity and measures 9.9 cm. There is a 1.6 cm cyst with no evidence for stone. There is no hydronephrosis. The left kidney has normal echogenicity and measures 8.8 cm. There is no focal parenchymal abnormality or evidence for stone. There is no hydronephrosis. The bladder is not well distended therefore not well evaluated. IMPRESSION: NO SIGNIFICANT SONOGRAPHIC ABNORMALITY OF THE KIDNEYS. Condition at Discharge: Stable Final Diagnosis/Problems List Acute chest pain, ruled out ACS,likely costochondritis Hypertensive heart disease with chronic systolic heart failure, EF 40%; not in exacerbation DEBBIE, likely due to VMN Acute intractable vomiting, likely GERD Bipolar disorder Hyperlipidemia Prediabetes Polysubstance abuse Discharge Disposition: Home Discharge Instruct/Medications Diet: Cardiac 2g Na,low cholest Activity: No Restrictions, As Tolerated Follow Up/Referral: follow up in discharge clinic in 1week follow up with PCP in 1-2 weeks Scheduled Aspirin (Aspir-Low), 81 MG PO DAILY, (Reported) Atorvastatin Calcium (Lipitor), 1 TAB PO DAILY, (Reported) Carvedilol (Carvedilol), 6.25 MG PO DAILY, (Reported) Cyclobenzaprine Hcl (Cyclobenzaprine Hcl), 10 MG PO DAILY, (Reported) Fluoxetine HCl (Fluoxetine), 20 MG PO DAILY, (Reported) Isosorbide Dinitrate (Isosorbide Dinitrate), 5 MG PO BID, (Reported) Lamotrigine (Lamotrigine), 1 TAB PO DAILY, (Reported) Nitroglycerin (Ntrostat Sublingual), 0.4 MG SL PRN, (Reported) Nortriptyline Hcl (Pamelor Capsule), 10 MG GT DAILY, (Reported) Pantoprazole Sodium Sesquihydr (Protonix), 40 MG PO DAILY Ranolazine (Ranexa), 500 MG PO BID Sucralfate (Carafate), 1 GM PO BID Discontinued Medications Furosemide (Furosemide), 1 TAB PO DAILY, (Reported) Lisinopril (Lisinopril), 10 MG PO DAILY, (Reported) Meloxicam (Meloxicam), 7.5 MG PO BID, (Reported) Potassium Chloride (Potassium Chloride Cr), 1 TAB PO DAILY, (Reported) Sacubitril-Valsartan (Entresto 49-51 mg), 1 TAB PO BID, (Reported) Spironolactone (Spironolactone), 25 MG PO BID, (Reported) Discharge Statement: "Patient was advised to return to the ER or call 911 if any headaches, dizziness, shortness of breath, chest pain, abdominal pain, bleeding, fevers, or worsening of medical condition. Patient was counseled about treatment plan, medications, possible side effects, patientverbalized understanding. All questions were answered to the best of my ability. This discharge took greater then 30 minutes in planning, reviewing documentation, counseling the patient, and discussing with other team members." ASSESSMENT ASSESSMENT Assessment Acute chest pain, ruled out ACS Date of Service: Sep 24, 2025 Billing Provider: KELTON DELGADO MD Common Visit Codes: 50949-BFW/OBS DISCH DAY >30min Secondary Visit Codes: 72733-GCQCW CHNG SMOKING >10MIN (Counseled for 16 minutes on marijuana use cessation), 72245-RRTZPLVA CARE PLAN 30 MINUTES (20 minutes) ROXI CORDOVA RESIDENT Sep 24, 2025 13:55 LEX DICKEY RESIDENT Sep 24, 2025 16:18 KELTON DELGADO MD Sep 27, 2025 07:31
[2025-09-24] MEDS ORDERED: SUCR1TAB31 PO (13:56)
[2025-09-24] MEDS ORDERED: PANT40TA2 PO (13:56)
[2025-09-24 15:54] VITALS: BP 141/60; PULSE 70; RESP 20; TEMP 97.6; O2SAT 96
--- NOTE | 2025-09-27 07:32 | ECG ---
[facility] Test Date: 2025-09-22 Test Time: 20:41:35 Pat Name: FARA CRANDALL Department: ED Room: 0286T A Gender: M Cath Lab Manager: ABDIFATAH : 1965 Requested By: WENCESLAO GARCIA Order Number: [id number] Reading MD: Joe Henry Measurements Intervals [place] Rate: 90 P: 73 TX: 170 QRS: 119 QRSD: 137 T: -79 QT: 400 QTc: 490 Interpretive Statements Sinus rhythm Probable left atrial enlargement Nonspecific intraventricular conduction delay Anteroseptal infarct, old Borderline repolarization abnormality Electronically Signed On 09-27-2025 17:40:47 PST by Joe Henry Please click the below link to view image of tracing.
--- NOTE | 2025-09-27 07:32 | ECG ---
[facility] Test Date: 2025-09-22 Test Time: 17:34:26 Pat Name: FARA CRANDALL Department: ED Room: 0286T A Gender: M Belt Builder: OJ : 1965 Requested By: WENCESLAO GARCIA Order Number: [id number] Reading MD: Joe Henry Measurements Intervals [place] Rate: 103 P: 56 OR: 160 QRS: 108 QRSD: 131 T: 267 QT: 370 QTc: 485 Interpretive Statements Sinus tachycardia Probable left atrial enlargement Nonspecific intraventricular conduction delay Nonspecific T abnormalities, inferior leads Electronically Signed On 09-27-2025 17:40:38 PST by Joe Henry Please click the below link to view image of tracing.
== END 2025-09-24 16:30 | disposition home or self-care (01) | DRG 243 ==
LOC: ER 17:39 → EDBD 17:39 → EDUNIT# 23:33 → OVERFLOW 23:33 → TELE-WESTW 09-23 15:10
PROVIDERS: ADMIT Internal Medicine; ATTEND Internal Medicine
DX: K21.9 Gastro-esophageal reflux disease without esophagitis (principal); N17.0 Acute kidney failure with tubular necrosis; I50.22 Chronic systolic (congestive) heart failure; I11.0 Hypertensive heart disease with heart failure; E11.65 Type 2 diabetes mellitus with hyperglycemia; F31.9 Bipolar disorder, unspecified; F12.10 Cannabis abuse, uncomplicated; M94.0 Chondrocostal junction syndrome [Tietze]; E78.5 Hyperlipidemia, unspecified; F41.9 Anxiety disorder, unspecified; N28.1 Cyst of kidney, acquired; F11.10 Opioid abuse, uncomplicated; Z87.442 Personal history of urinary calculi; Z88.8 Allergy status to other drugs, medicaments and biological substances; Z87.74 Personal history of (corrected) congenital malformations of heart and circulatory system
CPT/HCPCS: 36415; 71045; 76775; 80048; 80053; 80307; 81001; 82306; 82570; 82607; 83036; 83880; 84156; 84300; 84443; 84484; 85025; 87081; G0378; J2405; Q0162